=== PATIENT | female | born 1960 | race Caucasian/White ===

== ENCOUNTER → 2019-11-20 13:06 | Outpatient (CLI) | payer OTHER, SELFPAY ==
[2019-11-20 17:07] LABS: Absolute Lymphocyte Count 1.57 X10^3/uL (0.83-4.51); Absolute Neutrophil Count 3.8 X10^3/uL (2.0-7.7); Basophil# 0.05 X10^3/uL; Basophil% 0.8 % (0-1); Eosinophil# 0.09 X10^3/uL; Eosinophils% 1.5 % (0-5); Hematocrit 48.6 % (37-47); Hemoglobin 15.9 g/dL (12.0-15.0); Lymphocyte # 1.57 X10^3/ul (4.0); Lymphocyte % 26.4 % (19-41); Mean Corp Hgb Conc 32.7 g/dL (32-36); Mean Corpuscular Hgb 31.1 pg (27.0-32.0); Mean Corpuscular Volume 94.9 fL (81-99); Mean Platelet Vol. 11.8 fl (6.2-12.0); Monocyte# 0.43 X10^3/uL; Monocyte% 7.2 % (0-10); NRBC Flagged by Analyzer 0 % (0-5); Neutrophil # 3.79 X10^3/uL (2.7-7.7); Neutrophil % 63.9 % (47-70); Platelet Count 245 K/mm3 (150-450); RBC Distribution Width CV 12.1 % (11.6-14.6); RBC Distribution Width SD 42.3 fl (35.1-43.9); Red Blood Count 5.12 M/mm3 (4.2-5.4); White Blood Count 5.9 K/mm3 (4.4-11.0)
== END ==
PROVIDERS: PCP Family Medicine; Referring Provider Family Medicine; Visit Provider Family Medicine
DX: G47.33 Obstructive sleep apnea (adult) (pediatric) (principal); E55.9 Vitamin D deficiency, unspecified
CPT/HCPCS: 36415; 82306; 85025

== ENCOUNTER → 2019-11-27 07:07 | Outpatient (CLI) | payer OTHER, SELFPAY ==
[2019-11-27 10:16] LABS: Ferritin 152 ng/mL (8-252); Iron 95 ug/dL (50-170); Iron Binding Capacity,Total 337 ug/dL (250-450)
[2019-11-28 16:27] LABS: Transferrin 256 mg/dL (192-364)
== END ==
PROVIDERS: PCP Family Medicine; Referring Provider Family Medicine; Visit Provider Family Medicine
DX: D75.1 Secondary polycythemia (principal)
CPT/HCPCS: 36415; 82728; 83540; 83550; 84466

== ENCOUNTER → 2020-02-07 07:14 | Outpatient (CLI) | payer OTHER, SELFPAY ==
[2020-02-07 10:14] LABS: Cholesterol 211 mg/dL (200); High Density Lipoprotein 58 mg/dL; Triglycerides 122 mg/dL; Very Low Density Lipoprotein 24 mg/dL (5-40)
== END ==
PROVIDERS: PCP Family Medicine; Referring Provider Registered Nurse; Visit Provider Registered Nurse
DX: Z00.00 Encounter for general adult medical examination without abnormal findings (principal)
CPT/HCPCS: 36415; 80061

== ENCOUNTER → 2020-03-07 16:22 | Outpatient (CLI) | payer OTHER, SELFPAY ==
--- NOTE | 2020-03-07 16:26 | BI_ITS ---
MAMMOGRAPHY - BILATERAL SCREENING REASON FOR EXAM: Female, 60 years old. Routine annual screening examination. PERTINENT HISTORY: Mother with breast cancer. TECHNIQUE: Digital bilateral breast giorgio (3D mammographic acquisition) in the CC and MLO projections. 2-D mediolateral oblique (MLO) and craniocaudad (CC) views of both breasts were obtained. CAD: Full Field Digital Mammography with Computer Added Detection was performed. COMPARISON: Comparison is made with prior outside examination dated 09/24/2017. FINDINGS: Breast Composition: There are scattered areas of fibroglandular density. There are no dominant masses or suspicious calcifications. Stable small benign appearing bilateral axillary lymph nodes. No other significant abnormalities are identified. There has been no significant change since the prior study. BI/SCREEN MAMM (CAD) W/GIORGIO BILAT IMPRESSION: Stable bilateral screening mammogram. Yearly follow-up mammogram recommended. (A) ASSESSMENT CATEGORY: BIRADS Category 2: Benign. A letter regarding these results will be sent to the patient by the facility within 30 days. Approximately 10% of breast cancers are not detected by mammography. A normal mammogram should not delay biopsy of a clinically suspicious abnormality. [id number] Electronically Signed: Ilan Watters, at 15:28 EST , Service support ,
== END ==
PROVIDERS: PCP Family Medicine; Referring Provider Registered Nurse; Visit Provider Family Medicine
DX: Z12.31 Encounter for screening mammogram for malignant neoplasm of breast (principal)
CPT/HCPCS: 77063; 77067

== ENCOUNTER → 2020-08-21 14:21 | Outpatient (CLI) | payer OTHER, SELFPAY ==
--- NOTE | 2020-08-21 14:25 | RAD_ITS ---
INDICATION: STRAIN EXAMINATION/TECHNIQUE: X-RAY - RIGHT XR Foot Min 3 Views COMPARISON: None. FINDINGS: No acute fracture or malalignment. No blastic or lytic lesions. Mild degenerative changes of the interphalangeal joints and first metatarsophalangeal joint. Plantar and dorsal heel spurs. The soft tissues are unremarkable. RAD/Foot min 3 Views IMPRESSION: No acute radiographic abnormalities. Mild degenerative changes of the interphalangeal joints and first metatarsophalangeal joint. Heel spurs. Electronically Signed: Chauncey Kumar MD at 23:37 EDT Tel , Service support ,
--- NOTE | 2020-08-21 14:45 | RAD_ITS ---
INDICATION: STRAIN EXAMINATION/TECHNIQUE: X-RAY - RIGHT XR Ankle Min 3 Views COMPARISON: None. FINDINGS: No acute fracture or malalignment. No blastic or lytic lesions. No degenerative changes are seen. Plantar and dorsal heel spurs. The soft tissues are unremarkable. RAD/Ankle min 3 Views IMPRESSION: No acute radiographic abnormalities. Heel spurs. Electronically Signed: Chauncey Kumar MD at 23:37 EDT Tel , Service support ,
== END ==
PROVIDERS: PCP Family Medicine; Referring Provider Family Medicine; Visit Provider Family Medicine
DX: S96.911A Strain of unspecified muscle and tendon at ankle and foot level, right foot, initial encounter (principal); X58.XXXA Exposure to other specified factors, initial encounter; Y93.9 Activity, unspecified; Y92.9 Unspecified place or not applicable; Y99.9 Unspecified external cause status
CPT/HCPCS: 73610; 73630

== ENCOUNTER 2020-10-04 14:30 | Outpatient (RCR) | payer OTHER, SELFPAY ==
--- NOTE | 2020-08-22 16:48 | HP.PTEVAL_ITS ---
Patient's Visit Information EDER PATE is a 60 year old F referred to Physical Therapy by Dr. Polly Cabral MD with a diagnosis of B pes planus, B ankle pain.. Date of Evaluation: 08/22/20 Physical Therapist: Medardo Lin, WILLAT, OCS, CSCS - Visit Plan Frequency: 2x /Week Duration: 4-6 Weeks Plan: 2x/week for 4-6 weeks. 1. R ankle US nonthermal to PTT, B ankle mobs and STM medial and PROM. 2. Progress aROM and strength/proprioception ex as tolerated. 3. TEns with ice to R ankle as needed. EG seeking prescription for orthotics from doctor(faxed request), please schedule pt with PT for this as soon as it arrives so she can get orthotics quckly((other therapist as I am on vacation next week.) - Subjective Goes by Michelle. Has chronic pain in ankles and feet adn almost fell Wednesday while tripping on mats. Has horribly weak ankles and feet. Does regular water ex whcih helps the ache in the feet. Feet hurt every day and have for years. Pain is burning in top of ankle ad medially. Feels exhausted in feet with walking, standing. Had acupuncture that helped a long time ago. Sees chiropractor due to hip. 2007 had bad plantarfasciitis and saw ortho. Has boot at home, stetches helped PFitis. No orthotics but had them at one point. No recent treatment for feet. Takes advil and voltarin. Pain is to 7/10 with activity and 0/10 when elevated. Avoids jogging, has fear of falling, tries to walk for fitness and it hurts. avoids steps. Hobbies: rodríguez, hard to get off ground when planting paul. Scared of rolling ankles. Basic ADLs are hard at home. - Pain B feet Pain Intensity (Out of 10): 1 Pain Intensity Range: 0, 7 Comment: comfy in water. - Objective Ambulates back to PT slowly with decreased push off r but I. Transfers I with pain in ankles and fanfare.,. Has maximal pes planus causing compression on outside of ankle and lengthening of PTT inside B. Max tender PTT R>L and into anterior joint structures generally. Ankle aROM R 0 DF but initially -20 and then verbally cued, self limited due to pain. Inv R 15 and L 18 with pain R, eversion 10 R and 12 L with pain on R. PF painful but full B. L DF to 2 degrees. mod tight B gastroc. strength R ankle 3+/5 with pain in alld irections unable to heel raise due to pain. L ankle 4- and much more fluid motion. Everything movement hernandez causes ankle pain R making special tests challenging as she tenses up. - Goals Goal 1:: Full aROM R ankle without c/o pain Goal Time Frame: 4-6 Weeks Goal 2:: Pt feel 75% better in ankle pain to 1/10 at worst Goal Time Frame: 4-6 Weeks Goal 3:: i use of orthoitcs for pain Goal Time Frame: 4-6 Weeks Goal 4:: I approp HEP to minimize pain in future. Goal Time Frame: 4-6 Weeks Goal 5:: Confident [place] to [facility] at end of August. Goal Time Frame: 4-6 Weeks Goal 6:: FGA 25/30 or neurocom to show good baance once ankle pain taken care of. Goal Time Frame: 4-6 Weeks - Rehabilitation Potential Physical Therapy Diagnosis: B ankle pain limiting function Rehabilitation Potential: Fair - Anticipated Interventions Patient/Client Instruction: Educate patient on: Condition For the Purpose of:: To decrease pain, To increase ROM, To improve muscle performance and motor function, To improve ability of physical actions for home/community/work/leisure, To improve gait and locomotor functions Therapeutic Exercise to Include: Strength training, Balance training, Flexibilty training, Gait and locomotor training, Neuromotor development, Passive ROM, Active ROM For the Purpose of:: To decrease pain, To increase ROM, To improve muscle performance and motor function, To increase tolerance to activity/condition/position Manual Therapy Techniques to Include: Massage, Mobilization, Soft tissue mobilization For the Purpose of:: To decrease pain, To increase ROM, To improve nutrient delivery to tissue, To improve muscle performance and motor function, To increase tolerance to activity/condition/position Orthotics: Shoe insert For the Purpose of:: To decrease pain TENS: Yes Cryotherapy (ice pack, ice massage): Yes Ultrasound (thermal/non thermal): Yes For the Purpose of:: To decrease pain, To increase ROM Thank you for the opportunity to evaluate your patient. For Medicare and Medicare HMO plans, please review the plan of care and approve it. It will need to be FAXED BACK to us at [phone] for Medicare purposes. For Medicare only, by signing this I certify the plan of care. Please let me know if there are questions or concerns regarding this plan of care. Physician Signature: ___Date:
--- NOTE | 2020-09-17 16:25 | HP.PTREVAL ---
Dr. Polly Cabral MD, It has been my pleasure to treat EDER PATE over the last 10 visits for B pes planus, B ankle pain.. Please see the progress note below for an update on the physical therapy plan of care! Subjective: Orthoitcs are great. They really help, getting out of van was easier. Walked down steps without problems, needed rail. L side pain 3/10 at medial ankle and R 5/10. Sleep is OK. Going to [place] in two days Objective/Function: Mssed 2 oclcok treatment with Eddie Lucio. 5 degrees DF B and 50 PF without pain, full inv and ev still some pain with inv. 3+ inv strength B with pain, 4- eversion and 4+ DF and PF. Hurts to walk on toes. steps are reciprocal and FGA balance goal is met. Questionable how patient will do on vacation and would recommend finish POC with manual and f/u after vacation to check doctor recommendation Plan Plan: 2 visit with Eddie nguyen and US adn then recheck EG after vacation. Goals Goal 1:: Full aROM R ankle without c/o pain Goal Time Frame: 4-6 Weeks Goal Progress: Goal Met Goal 2:: Pt feel 75% better in ankle pain to 1/10 at worst Goal Time Frame: 4-6 Weeks Goal Progress: pain still higher. Goal 3:: i use of orthoitcs for pain Goal Time Frame: 4-6 Weeks Goal Progress: Goal Met Goal 4:: I approp HEP to minimize pain in future. Goal Time Frame: 4-6 Weeks Goal Progress: Goal Met Goal 5:: Confident for trip out [place] to [facility] at end of August. Goal Time Frame: 4-6 Weeks Goal Progress: Goal Met Goal 6:: FGA 25/30 or neurocom to show good baance once ankle pain taken care of. Goal Time Frame: 4-6 Weeks Goal Progress: Goal Met Anticipated Interventions Patient/Client Instruction: Educate patient on: Condition For the Purpose of:: To decrease pain, To increase ROM, To improve muscle performance and motor function, To improve ability of physical actions for home/community/work/leisure, To improve gait and locomotor functions Therapeutic Exercise to Include: Strength training, Balance training, Flexibilty training, Gait and locomotor training, Neuromotor development, Passive ROM, Active ROM For the Purpose of:: To decrease pain, To increase ROM, To improve muscle performance and motor function, To increase tolerance to activity/condition/position Manual Therapy Techniques to Include: Massage, Mobilization, Soft tissue mobilization For the Purpose of:: To decrease pain, To increase ROM, To improve nutrient delivery to tissue, To improve muscle performance and motor function, To increase tolerance to activity/condition/position Orthotics: Shoe insert For the Purpose of:: To decrease pain TENS: Yes Cryotherapy (ice pack, ice massage): Yes Ultrasound (thermal/non thermal): Yes For the Purpose of:: To decrease pain, To increase ROM Please do not hesitate to contact me at [phone] by phone or if you have questions or concerns regarding this new plan of care! Sincerely, Medardo Lin, DPT, OCS, CSCS
--- NOTE | 2020-10-04 15:16 | HP.PTDCSUM ---
It has been my pleasure to treat EDER PATE referred by Dr. Polly Cabral MD, with the diagnosis of B pes planus, B ankle pain. for a total of 12 visit(s). Discharge Date: 10/04/20 Please see the following information for a summary of their discharge status. Subjective: Much better. I can walk all over [facility] without hurting too bad. Went up steps at home using bannister appropriately and up straight. Pain still to 3/10 with walking alot. Currently 3/10. Orthoittcs are very helpful. Saw doctor Wednesday and no other interventions needed right now. Ex at home 2x/day. Also in pool regularly. B feet Pain Intensity (Out of 10): 0 % Improvement: 94 Objective/Function: 8 degrees of DF B, 58 PF B without pain or wincing. 4+/5 strength in ankle motions without pain. Walking well and without antalgia today. Pt doing very wella nd ready for d/c Goal 1:: Full aROM R ankle without c/o pain Goal Progress: Goal Met Goal 2:: Pt feel 75% better in ankle pain to 1/10 at worst Goal Progress: % met , pain improving Goal 3:: i use of orthoitcs for pain Goal Progress: Goal Met Goal 4:: I approp HEP to minimize pain in future. Goal Progress: Goal Met Goal 5:: Confident for trip out [place] to [facility] at end of August. Goal Progress: Goal Met Goal 6:: FGA 25/30 or neurocom to show good baance once ankle pain taken care of. Goal Progress: Goal Met Plan: d/c If there are questions or concerns regarding this patient's physical therapy, please feel free to call me at [phone]. Thank you for the referral of this patient. Sincerely, Medardo Lni, DPT, OCS, CSCS Balance/Gait/Functional tests - Balance/Special Test Scores Functional Gait Assessment Score: 26 % Disability: 13.3400 Lower Extremity Functional Score: 69
== END 2020-10-04 19:00 | disposition home or self-care (01) ==
LOC: PT 14:30
PROVIDERS: PCP Family Medicine; Referring Provider Family Medicine; Visit Provider Family Medicine
DX: S96.919D Strain of unspecified muscle and tendon at ankle and foot level, unspecified foot, subsequent encounter (principal); X58.XXXD Exposure to other specified factors, subsequent encounter; G89.29 Other chronic pain; M21.42 Flat foot [pes planus] (acquired), left foot; M21.41 Flat foot [pes planus] (acquired), right foot
CPT/HCPCS: 97035; 97110; 97140; 97162; 97164; 97530; 97760; 97763

== ENCOUNTER → 2020-12-13 15:29 | Outpatient (CLI) | payer OTHER, SELFPAY ==
--- NOTE | 2020-12-13 15:35 | RAD_ITS ---
STUDY: X-RAY - LUMBAR SPINE REASON FOR EXAM: Female, 60 years old. SCIATICA TECHNIQUE: 4 view(s) of the lumbar spine were obtained. COMPARISON: None FINDINGS: There is straightening of the normal lumbar lordosis. There is no substantial scoliosis. There is a normal alignment of the vertebrae. Normal vertebral bodies and endplates. There is multi-level degenerative disc disease with multi-level disc space narrowing. The soft tissue structures are unremarkable. RAD/L/S Spine Min 4 Views IMPRESSION: Degenerative changes of the spine, as detailed above. Electronically Signed: Ilan Watters MD at 13:39 EDT , Service support ,
== END ==
PROVIDERS: PCP Family Medicine; Referring Provider Family Medicine; Visit Provider Family Medicine
DX: M54.32 Sciatica, left side (principal)
CPT/HCPCS: 72110

== ENCOUNTER 2021-02-06 16:00 | Outpatient (RCR) | payer OTHER, SELFPAY ==
--- NOTE | 2020-12-23 17:21 | HP.PTEVAL ---
Patient's Visit Information EDER PATE is a 60 year old F referred to Physical Therapy by Dr. Jaret Estrella MD with a diagnosis of Back Pain- Sciatica. Date of Evaluation: 12/23/20 Physical Therapist: Ailyn Herrera DPT - Visit Plan Frequency: 2x /Week Duration: 4 Weeks Plan: Ultrasound as modality of choice- Focus on posture and core strength/stabilization- Neutral spine to start. - Subjective Patient reports Wednesday the - she was doing chores- pulled clothes out of the dryer- horrible almost threw up. Wednesday went to chiro adjustment which helped a little bit- also taking advil- told her heating pad and water. Wednesday she went back in the AM- very similar but manipulated her- in the PM she went to the MD- muscle relaxer and x-rays. 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 Was able to wear her allegras instead of her sneakers. When she gets tired it gets worse. X-ray and showed DDD and they sent her to PT. Pain is located along the belt line on the left side- and radiates to the ankle- comes and goes. N/T in the leg- pain in the back is dull and achy. Worst in the last week: 7/10 Agg: sitting, standing for to long, bending forward, reaching into the car, going down the stairs. Best: 5/10 Eases: heating pad, medication. Sleep: side sleeper with a CPAP and a back sleeper with her left arm over her head- stiff when she gets up- but does not wake her since she started using Tylenol. 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 Working currently. No MRI just x-rays. Is not currently going to the chiropractor (Dr. Cedeno) but wants to have acupuncture. Swims and goes to water aerobics- but has not been going because its to cold. PMHx: none Meds: none - Objective Posture: FH, RS, increased kyphosis-can correct but does not maintain and reports pain. Gait: decreased spinal rotation. HR/TR: able without pain. SLS: weight shift but unable to SLS without loss of balance and reports pain when lifting her left leg. ROM: WFL bur reports pain with all directions. Hip/Knee/Ankle: WFL. Strength: Core: fair minus, Hip: 4-/5, Knee: 4+/5, Ankle: 5/5. Sensation: WFL. Reflex: diminished bilateral patella. Flex: HS: severe, Gastroc: moderate. Special Test: slump: positive left, Dural signs: positive left, Repeated extension/flexion: increased pain each direction - Balance/Special Test Scores Lower Extremity Functional Score: 25 - Goals Goal 1:: Patient will be I with HEP and progression Goal Time Frame: 4-6 Weeks Goal 2:: Patient will maintain proper posture t/o tx session to demo increased core s/s. Goal Time Frame: 4-6 Weeks Goal 3:: Patient will report no radiating s/s down her left leg for 1 week Goal Time Frame: 4-6 Weeks - Rehabilitation Potential Physical Therapy Diagnosis: Patient presents with hypomobility- she decreased ROM, LE and core strength/stabilization, flex and muscular endurance leading to poor posture and increased pain with ADL's. Rehabilitation Potential: Fair - Anticipated Interventions Patient/Client Instruction: Educate patient on: Benefits of Fitness Program Therapeutic Exercise to Include: Strength training, Power training, Coordination, Agility training, Body mechanics, Postural training, Flexibilty training, Neuromotor development, Dynamic Lumbar Stabilization, Scapular Strength/Stabilization For the Purpose of:: To improve muscle performance and motor function TENS: Yes Cryotherapy (ice pack, ice massage): Yes Thermo therapy (hot pack): Yes Ultrasound (thermal/non thermal): Yes For the Purpose of:: To decrease swelling/inflammation Thank you for the opportunity to evaluate your patient. For Medicare and Medicare HMO plans, please review the plan of care and approve it. It will need to be FAXED BACK to us at [phone] for Medicare purposes. For Medicare only, by signing this I certify the plan of care. Please let me know if there are questions or concerns regarding this plan of care. Physician Signature: Date:
--- NOTE | 2021-02-06 16:28 | HP.PTDCSUM ---
It has been my pleasure to treat EDER PATE referred by Dr. Jaret Estrella MD, with the diagnosis of Back Pain- Sciatica for a total of 14 visit(s). Discharge Date: Please see the following information for a summary of their discharge status. Subjective: Patient reports that she is a lot better. She knows when she over does it- deyvi over Thanksgiving. She has been able to work it through. She has a good home exercise program. 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 She is wearing orthotics and is back in her normal shoes. % Improvement: 90 Objective/Function: Posture: FH, RS, increased kyphosis-can correct and maintain for 5 min then returns to slumped posture in sitting Gait: no deviation noted. HR/TR: able without pain. SLS: 15 seconds ROM: WFL without pain. Hip/Knee/Ankle: WFL. Strength: Core: fair minus, Hip: 4+/5, Knee:5/5, Ankle: 5/5. Sensation: WFL. Reflex: diminished bilateral patella. Flex: HS: moderate, Gastroc: moderate. Goal 1:: Patient will be I with HEP and progression Goal Progress: Goal Met Goal 2:: Patient will maintain proper posture t/o tx session to demo increased core s/s. Goal Progress: Goal Met Goal 3:: Patient will report no radiating s/s down her left leg for 1 week Goal Progress: Goal Met Plan: Discharge to I home exercise program. If there are questions or concerns regarding this patient's physical therapy, please feel free to call me at [phone]. Thank you for the referral of this patient. Sincerely, Ailyn Herrera, WILLAT Balance/Gait/Functional tests - Balance/Special Test Scores Oswestry Low Back Score: 6 Lower Extremity Functional Score: 25
== END 2021-02-06 19:00 | disposition home or self-care (01) ==
LOC: PT 16:00
PROVIDERS: PCP Family Medicine; Referring Provider Family Medicine; Visit Provider Family Medicine
DX: M54.32 Sciatica, left side (principal)
CPT/HCPCS: 97035; 97110; 97162; 97164

== ENCOUNTER 2021-03-20 16:16 | Outpatient (CLI) | payer OTHER, SELFPAY ==
--- NOTE | 2021-03-20 16:19 | BI_ITS ---
MAMMOGRAPHY - BILATERAL SCREENING REASON FOR EXAM: Female, 61 years old. Routine annual screening examination. PERTINENT HISTORY: Mother with breast cancer. TECHNIQUE: Digital bilateral breast giorgio (3D mammographic acquisition) in the CC and MLO projections. 2-D mediolateral oblique (MLO) and craniocaudad (CC) views of both breasts were obtained. CAD: Full Field Digital Mammography with Computer Added Detection was performed. COMPARISON: Comparison is made with prior study dated 03/07/2020. FINDINGS: Breast Composition: There are scattered areas of fibroglandular density. There are no dominant masses or suspicious calcifications. Stable small benign-appearing bilateral axillary length. No other significant abnormalities are identified. There has been no significant change since the prior study. BI/SCRN MAMM (CAD)W/GIORGIO BILAT IMPRESSION: Stable bilateral screening mammogram. Yearly follow-up mammogram recommended. (A) ASSESSMENT CATEGORY: BIRADS Category 2: Benign. A letter regarding these results will be sent to the patient by the facility within 30 days. Approximately 10% of breast cancers are not detected by mammography. A normal mammogram should not delay biopsy of a clinically suspicious abnormality. [id number] Electronically Signed: Ilan Watters MD at 8:26 EST , Service support ,
== END 2021-03-20 23:59 | disposition short-term general hospital (02) ==
LOC: OPBI 16:17
PROVIDERS: PCP Family Medicine; Referring Provider Family Medicine; Visit Provider Family Medicine
DX: Z12.31 Encounter for screening mammogram for malignant neoplasm of breast (principal)
CPT/HCPCS: 77063; 77067

== ENCOUNTER 2021-04-23 09:06 | Outpatient (CLI) | payer OTHER, SELFPAY ==
--- NOTE | 2021-04-23 09:09 | RAD_ITS ---
STUDY: X-RAY - LEFT KNEE REASON FOR EXAM: Female, 61 years old. Knee pain. TECHNIQUE: 3 view(s) of the knee. COMPARISON: None. FINDINGS: Osteopenia. Superior patellar spur. Moderate medial compartmental arthrosis with osteophyte formation. Mild arthrosis of the lateral compartment. Mild arthrosis of the patellofemoral compartment. Joint effusion with multiple radiopaque densities in the suprapatellar pouch which may represent intra-articular osteochondral bodies. RAD/Knee 3 Views IMPRESSION: Osteopenia with tricompartmental arthrosis as described. Multiple intra-articular osteochondral bodies. No acute abnormality. Electronically Signed: Mat Cardozo MD at 12:01 EST ,
== END 2021-04-23 23:59 | disposition home or self-care (01) ==
LOC: MTRAD 09:08
PROVIDERS: PCP Family Medicine; Referring Provider Family Medicine; Visit Provider Family Medicine
DX: M25.562 Pain in left knee (principal)
CPT/HCPCS: 73562

== ENCOUNTER 2021-04-24 07:18 | Outpatient (CLI) | payer OTHER, SELFPAY ==
[2021-04-24 10:19] LABS: Hematocrit 45.5 % (37-47); Hemoglobin 15.6 g/dL (12.0-15.0); Mean Corp Hgb Conc 34.3 g/dL (32-36); Mean Corpuscular Hgb 31.6 pg (27.0-32.0); Mean Corpuscular Volume 92.1 fL (81-99); Mean Platelet Vol. 11.6 fl (6.2-12.0); Platelet Count 204 K/mm3 (150-450); RBC Distribution Width CV 12.4 % (11.6-14.6); RBC Distribution Width SD 41.8 fl (35.1-43.9); Red Blood Count 4.94 M/mm3 (4.2-5.4); White Blood Count 5.1 K/mm3 (4.4-11.0)
[2021-04-24 10:33] LABS: Anion Gap 3 (5-15); BUN 13 mg/dL (7-18); Calcium,Total 8.9 mg/dL (8.5-10.1); Chloride 109 mmol/L (98-107); Creatinine, Serum 0.68 mg/dL (0.55-1.02); EST Glomerular Filtration Rate 93 mL/min (>60); Est Glom Filt Rate - Afr Amer 112 mL/min (>60); Glucose 127 mg/dL (74-106); Sodium Level 140 mmol/L (136-145)
[2021-04-24 10:38] LABS: Erythrocyte Sedimentation Rate 17 mm/hr (0-30)
[2021-04-24 11:29] LABS: Vitamin D,25 Hydroxy 34.1 ng/mL
[2021-04-25 11:37] LABS: ANTINUCLEAR ANTIBODIES DIRECT Negative (Negative)
== END 2021-04-24 23:59 | disposition home or self-care (01) ==
LOC: MTLAB 07:19
PROVIDERS: PCP Family Medicine; Referring Provider Family Medicine; Visit Provider Family Medicine
DX: Z00.00 Encounter for general adult medical examination without abnormal findings (principal); M19.90 Unspecified osteoarthritis, unspecified site
CPT/HCPCS: 36415; 80048; 82306; 84443; 85027; 85652; 86038

== ENCOUNTER 2021-05-15 06:13 | Outpatient (CLI) | payer OTHER, SELFPAY ==
--- NOTE | 2021-05-15 15:33 | STRESSREP ---
Stress Test Report Date: 05/15/2021 Procedure: Exercise tolerance test/imaging study Indications: Abnormal EKG Consent: Per the patient Procedure: The patient exercised on a Carlos protocol for 5 minutes and 1 second achieving a peak heart rate of 162 bpm (101% predicted maximal heart rate) with a peak blood pressure 158/72 mmHg and a peak MET capacity of 7.2 METs. The baseline ECG demonstrated normal sinus rhythm. The peak exercise ECG demonstrated no significant ischemic changes. EKG during recovery revealed no significant ischemic changes [There were no cardiac dysrhythmias pretest, during exercise, or recovery]. The functional capacity was considered normal for age. Patient had some chest discomfort at peak exercise. The examination was discontinued secondary to dyspnea. Impression: 1. Technically adequate (percent predicted maximal heart rate greater than 85%) exercise tolerance test 2. Stress test is negative for exercise-induced EKG changes of ischemia 3. The test test is positive for exercise-induced chest pain 4. Functional capacity is normal for age 5. Nuclear images pending Myocardial perfusion imaging study: Technique: The patient was injected with 11.7 mCi of technetium 99m Cardiolite and subsequently rest SPECT Cardiolite nuclear imaging was obtained in the horizontal long, vertical long, and short axis views. The patient exercised on a Carlos protocol. Please see above for details. The patient was injected with 33.8 mCi of technetium 99m Cardiolite and subsequently stress SPECT Cardiolite nuclear imaging was obtained in the horizontal long, vertical long, and short axis views. A gated Cardiolite study at peak stress was obtained. Interpretation: Rest and stress SPECT Cardiolite nuclear imaging status post realignment, normalization, and attenuation correction, demonstrates overall normal myocardial radioisotope uptake. The gated Cardiolite study demonstrates no significant regional wall motion abnormalities. The reported LVEF is greater than 70%. Impression: 1. There is no evidence of significant ischemia or infarction. 2. The gated Cardiolite study reports an LVEF of greater than 70%. This note was generated with Sonicbidsation software. It may contain incorrect words, spelling, and punctuation that were not noted in checking the note before signing.
== END 2021-05-15 23:59 | disposition home or self-care (01) ==
LOC: CVS 06:14
PROVIDERS: PCP Family Medicine; Referring Provider Family Medicine; Visit Provider Family Medicine
DX: R94.31 Abnormal electrocardiogram [ECG] [EKG] (principal)
CPT/HCPCS: 78452; 93017; A9500; A4216

== ENCOUNTER 2021-09-10 07:26 | Day surgery (SDC) | payer OTHER, SELFPAY ==
--- NOTE | 2021-09-10 07:54 | HP.PCM_ITS ---
HPI - General HPI Narrative EDER PATE, is a 61 F who presents for screening colonoscopy due to history of polyps. Patient last colonoscopy was in [place] in 2017 she did have a polyp at that time told return 5 years?do not have the report. Patient's mother was diagnosed colon cancer in her 80s. Patient states she has bowel movements daily denies any blood. Patient denies any chronic abdominal pain/nausea/vomiting and only has very occasional reflux. PFS Medical History (Updated 09/10/21 @ 08:[address] Brianne Rojo MD) Arthritis Back pain Bladder disease CPAP (continuous positive airway pressure) dependence Diabetes Easy bruising Gastric reflux Hidradenitis History of echocardiogram History of edema History of pain when walking History of stress test Non-smoker Post-menopausal Shortness of breath on exertion Wears contact lenses Wears hearing aid Home Medications Vit B Comp W/C 1 tab PO/SL PRN PRN ILLNESS 05/15/21 [History Last Taken Unknown] acetaminophen 650 mg tablet,extended release 650 mg PO Q8H PRN Pain 05/15/21 [History Last Taken Unknown] meloxicam 15 mg tablet 15 mg PO DAILY 05/15/21 [History Last Taken Unknown] oxybutynin chloride 5 mg tablet,extended release 24 hr 5 mg PO DAILY 05/15/21 [History Last Taken Unknown] Plexus 1 packet PO/SL DAILY 09/08/21 [History Last Taken Unknown] Plexus Active 1 packet PO/SL DAILY 09/08/21 [History Last Taken Unknown] cholecalciferol (vitamin D3) 50 mcg (2,000 unit) capsule (Vitamin D3) 50 mcg PO MOWEFR 09/08/21 [History Last Taken Unknown] Allergy/AdvReac Type Severity Reaction Status Date / Time No Known Allergies Allergy Verified 09/10/21 08:13 Family History (Updated 08/01/21 @ 14:17 by Wednesday) Mother Colon cancer Breast cancer Heart disease Father Diabetes Heart disease Hypertension Sister Thyroid disorder Surgical History (Updated 09/08/21 @ 08:55 by Gabrielle Nguyen) History of cardiac catheterization History of cholecystectomy History of D&C History of tonsillectomy Hx of colonoscopy Social History (Updated 08/01/21 @ 14:18 by Wednesday) Smoking Status: Never smoker alcohol intake: current details: rarely substance use type: does not use Past Medical/Surgical History Planned Operation Planned Operative Procedure/s: CSCOPE Previous Hospitalizations/Surgeries HX Hospitalizations: No Any Problems With Anesthesia: Yes (N,V) You/Your Family Experience Fever (Hyperthermia) With Anes: No Cholinesterase deficiency: No Cardiovascular Hx of Irregular Heartbeat and/or Afib: No Hx Heart Attack: No Hx Congestive Heart Failure: No Hx Hypertension: No Hx Pacemaker: No Respiratory Hx Chronic Obstructive Pulmonary Disease (COPD): No Hx Asthma: No Hx Emphysema: No Hx Sleep Apnea: Yes CPAP: Yes BIPAP: No Hx Respiratory Tract Infection/Cold (presently): No Result (for STOP score): Positive Smoking Status: Never smoker Gastrointestinal Hx Gastroesophageal Reflux: No Hx Ulcer: No Neurological Hx Seizures: No Hx Headaches: No Does patient have nerve stimulator: No Reproduction : No Allergies No Known Allergies Allergy (Verified 09/10/21 08:13) Discharge Is Pt Admitted From a Skilled Nursing, or a Prison: No After D/C, Where Do you Plan to Go: Return Home Physical Exam Const alert, oriented x3 and no apparent distress HEENT normocephalic and head/scalp atraumatic Resp normal respiratory effort Cardio regular rate GI soft to palpation and non-tender; Negative for non-distended Palpation: Negative for guarding Extremity no clubbing, cyanosis or edema Neuro CN's II-XII intact bilaterally Psych mental status grossly normal Assessment & Plan Assessment/Plan (1) Hx of colonic polyp: Procedure Criteria Type of Procedure Procedure Type: Elective Elective Risks - COVID COVID Risk Discussion: The surgeon/proceduralist and patient have discussed in detail the risk of exposure to and/or potential harm posed by the COVID-19 virus with having a surgery/procedure at this time versus the risk of delaying the mulligan rgery/procedure. It is not possible to know either the risk of delaying the surgery or procedure or chance of getting an infection with perfect accuracy, but a joint decision was made between the patient and the surgeon/proceduralist to proceed at this time with the scheduled surgery/procedure as indicated on the consent form. Surgery Risks - Colonoscopy Risks Include but are not Limited To: Risks include but are not limited to: Bleeding, perforation requiring further surgery, inability to complete colonoscopy requiring barium enema.
[2021-09-10 07:57] VITALS: BP 121/72; PULSE 87; RESP 16; TEMP 36.7; O2SAT 96; BMI 32.1
[2021-09-10] MEDS: Lactated Ringers 1,000 ML 15 ML IV (08:01)
--- NOTE | 2021-09-10 09:13 | OP.COLON_ITS ---
Patient Name: Romina Gimenez Procedure Date: 09/10/2021 8:38 AM Date of : 1960 Age: 61 Procedure: Colonoscopy Indications: High risk colon cancer surveillance: Personal history of colonic polyps Providers: Brianne Rojo MD Medicines: Monitored Anesthesia Care Patient Profile: This is a 61 year old female. Last Colonoscopy: 5 years ago. Complications: No immediate complications. Procedure: Pre-Anesthesia Assessment: - Prior to the procedure, a History and Physical was performed, and patient medications and allergies were reviewed. The patient's tolerance of previous anesthesia was also reviewed. The risks and benefits of the procedure and the sedation options and risks were discussed with the patient. All questions were answered, and informed consent was obtained. Prior Anticoagulants: The patient has taken no previous anticoagulant or antiplatelet agents. ASA Grade Assessment: Per anesthesia. After reviewing the risks and benefits, the patient was deemed in satisfactory condition to undergo the procedure. After I obtained informed consent, the scope was passed under direct vision. Throughout the procedure, the patient's blood pressure, pulse, and oxygen saturations were monitored continuously. The colonoscope was introduced through the anus and advanced to the cecum, identified by the appendiceal orifice, ileocecal valve and palpation. The colonoscopy was performed without difficulty. The patient tolerated the procedure well. The quality of the bowel preparation was good. Scope In: 8:45:36 AM Scope Withdrawal Time 0 hours 14 minutes 27 seconds Scope Out: 9:06:02 AM Total Procedure Duration Time 0 hours 20 minutes 26 seconds Findings: Hemorrhoids were found on perianal exam. Non-bleeding external and internal hemorrhoids were found. The hemorrhoids were small and Grade I (internal hemorrhoids that do not prolapse). Many small and medium diverticula were found in the entire colon. The exam was otherwise without abnormality. Impression: - Hemorrhoids found on perianal exam. - Non-bleeding external and internal hemorrhoids. - Diverticulosis in the entire examined colon. - The examination was otherwise normal. - No specimens collected. Recommendation: - Discharge patient to home. - High fiber diet. - Continue present medications. - Repeat colonoscopy in 10 years for screening purposes. Procedure Code(s): --- Professional --- G0105, PT, Colorectal cancer screening; colonoscopy on individual at high risk Diagnosis Code(s): --- Professional --- Z86.010, Personal history of colonic polyps K64.0, First degree hemorrhoids K57.30, Diverticulosis of large intestine without perforation or abscess without bleeding CPT copyright 2017 [employer]. All rights reserved. The codes documented in this report are preliminary and upon hcc coders review may be revised to meet current compliance requirements. MD Brianne Gtz MD 09/10/2021 9:12:55 AM This report has been signed electronically. Number of Addenda: 0 Note Initiated On: 09/10/2021 8:38 AM
[2021-09-10 09:14] VITALS: BP 108/72; BP 121/72; PULSE 72; RESP 16; TEMP 36; O2SAT 93
--- NOTE | 2021-09-10 09:14 | OP.CCLET_ITS ---
09/10/2021 Jaret Estrella MD [address] [id number] Re : Colonoscopy procedure for Romina Gimenez Dear Dr. Estrella This procedure was performed on Friday, September 10, 2021. My impressions and recommendations are as follows: Impressions : - Hemorrhoids found on perianal exam. - Non-bleeding external and internal hemorrhoids. - Diverticulosis in the entire examined colon. - The examination was otherwise normal. - No specimens collected. Recommendations : - Discharge patient to home. - High fiber diet. - Continue present medications. - Repeat colonoscopy in 10 years for screening purposes. My findings are described in the full procedure note, which is enclosed. If I can be of further assistance, please feel free to contact me at Doctor phone number(s): , Work: . Sincerely, MD Brianne Gtz MD 09/10/2021 9:12:55 AM This report has been signed electronically.
[2021-09-10 09:20] VITALS: BP 109/68; BP 121/72; PULSE 70; RESP 18; O2SAT 92
[2021-09-10 09:25] VITALS: BP 109/68; BP 121/72; PULSE 66; RESP 18; O2SAT 93
[2021-09-10 09:30] VITALS: BP 110/67; BP 121/72; PULSE 70; RESP 18; TEMP 36.3; O2SAT 94
[2021-09-10 09:50] VITALS: BP 121/72
== END 2021-09-10 09:51 | disposition home or self-care (01) ==
LOC: EN 07:26 → AC 07:27
PROVIDERS: PCP Family Medicine; Referring Provider Family Medicine; Visit Provider Surgery
PROC: 0DJD8ZZ Inspection of Lower Intestinal Tract, Via Natural or Artificial Opening Endoscopic (ICD-10-PCS; CPT 45378; principal; 2021-09-10 08:40)
DX: Z12.11 Encounter for screening for malignant neoplasm of colon (principal); E11.9 Type 2 diabetes mellitus without complications; K57.30 Diverticulosis of large intestine without perforation or abscess without bleeding; K64.0 First degree hemorrhoids; K21.9 Gastro-esophageal reflux disease without esophagitis; Z78.0 Asymptomatic menopausal state; Z86.010 Personal history of colon polyps; Z80.0 Family history of malignant neoplasm of digestive organs
CPT/HCPCS: 45378; J7120; J2405

== ENCOUNTER → 2021-09-11 | Outpatient (CLI) | payer OTHER, SELFPAY ==
--- NOTE | 2021-09-11 10:15 | RAD_ITS ---
STUDY: X-RAY - LEFT KNEE REASON FOR EXAM: Female, 61 years old. KNEE PAIN TECHNIQUE: 4 view(s) of the knee. COMPARISON: 04/23/2021 FINDINGS: Normal visualized distal femur. Normal visualized proximal tibia and fibula. Normal proximal tibiofibular articulation. There is moderate degenerative arthrosis of the medial femorotibial compartment with moderate joint space narrowing. There is mild degenerative arthrosis of the lateral femorotibial compartment. There is mild degenerative arthrosis of the patellofemoral articulation. There is a soft tissue prominence in the suprapatellar region suggesting a small volume joint effusion. The soft tissue structures are unremarkable. RAD/Knee 4 or More Views IMPRESSION: Degenerative arthrosis. Electronically Signed: Luis Flores MD at 17:44 EDT ,
== END | disposition home or self-care (01) ==
LOC: MTRAD 10:13
PROVIDERS: PCP Family Medicine; Referring Provider Family Medicine; Visit Provider Family Medicine
DX: M17.12 Unilateral primary osteoarthritis, left knee (principal)
CPT/HCPCS: 73564

== ENCOUNTER 2021-09-23 08:00 | Outpatient (RCR) | payer OTHER, SELFPAY ==
--- NOTE | 2021-09-17 08:11 | HP.PTEVAL ---
Patient's Visit Information EDER PATE is a 61 year old F referred to Physical Therapy by Dr. Jaret Estrella MD with a diagnosis of L knee pain. Date of Evaluation: 09/17/21 Physical Therapist: Porfirio Walters, PT, ATC - Visit Plan Frequency: 2-3x /Week Duration: 4-6 Weeks Plan: L knee stretching and strengthening, balance and proprio, core stab ex's, nustep, and HEP - Subjective Pt reports her L knee has been very sore for approximately 2 weeks. Pt reports she was stretching in the pool when she felt her L knee pop. Pt reports she has been icing and resting since which hasnt really helped. Pt reports she has since recieved a cortisone injection that made to impact. Pt reports her knee catches on her. Pt also reports her knee gives out on her as well. 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 Pt reports she has difficulty with rolling over in bed, and notes she has difficulty with sleep at this time secondary to pain. Pt denies tingling and numbness in L LE. Pt reports she starts school on September. Pt reports she has to travel from building to building for her work and believes she is going to have a lot of difficulty with that task. Pt reports she had x rays last wednesday which revealed moderate arthritis at this time. 9/10 pain at rest, 10/10 pain at worst. - Pain L knee Pain Intensity (Out of 10): 9 Pain Intensity Range: 10 - Objective Neuro: B LE sensation is WNL to light touch. Reflexes not tested secondary to pain. Palpation: Pt pas significant pain on the popliteal region of L knee and along medial joint line. Sig crepitus with AROM. Girth at joint line: L knee 39 cm, R knee 37 cm. ROM: L knee 0-5-125; L knee 0-45-100 degrees. MMT: R knee flex= 28, ext= 20 #F; L knee flex= 22, ext 8 #F. Special tests: pos Mcmurrays and apley compression tests - Balance/Special Test Scores Lower Extremity Functional Score: 11 - Goals Goal 1:: Decrease L knee pain x 50% to aid with sleep Goal Time Frame: 4-6 Weeks Goal 2:: Increase L knee strength x 5-10 #F to aid with stair negotiation Goal Time Frame: 4-6 Weeks Goal 3:: Increase L knee ROM x 45 degrees to aid with restoring a normalized gait pattern Goal Time Frame: 4-6 Weeks Goal 4:: I with HEP Goal Time Frame: 4-6 Weeks - Rehabilitation Potential Physical Therapy Diagnosis: Pt has L knee pain, weakness, and limited ROM secondary to deg changes in the L knee Rehabilitation Potential: Fair - Anticipated Interventions Patient/Client Instruction: Educate patient on: Condition, Plan of Care For the Purpose of:: To improve self management Therapeutic Exercise to Include: Strength training, Endurance training, Balance training, Flexibilty training, Gait and locomotor training, Passive ROM, Active ROM, Dynamic Lumbar Stabilization For the Purpose of:: To decrease pain, To increase ROM, To improve muscle performance and motor function Cryotherapy (ice pack, ice massage): Yes For the Purpose of:: To decrease pain Thank you for the opportunity to evaluate your patient. For Medicare and Medicare HMO plans, please review the plan of care and approve it. It will need to be FAXED BACK to us at [phone] for Medicare purposes. For Medicare only, by signing this I certify the plan of care. Please let me know if there are questions or concerns regarding this plan of care. Physician Signature: Date:
== END 2021-09-23 19:00 | disposition home or self-care (01) ==
LOC: PT 08:00
PROVIDERS: PCP Family Medicine; Referring Provider Family Medicine; Visit Provider Family Medicine
DX: M25.562 Pain in left knee (principal)
CPT/HCPCS: 97110; 97161

== ENCOUNTER → 2021-12-05 | Outpatient (CLI) | payer OTHER, SELFPAY ==
[2021-12-05 17:45] LABS: Absolute Lymphocyte Count 1.73 X10^3/uL (0.83-4.51); Absolute Neutrophil Count 3.2 X10^3/uL (2.0-7.7); Basophil# 0.05 X10^3/uL; Basophil% 0.9 % (0-1); Eosinophil# 0.09 X10^3/uL; Eosinophils% 1.6 % (0-5); Hematocrit 45.6 % (37-47); Hemoglobin 15.4 g/dL (12.0-15.0); Lymphocyte # 1.73 X10^3/ul (0.83-4.51); Lymphocyte % 30.9 % (19-41); Mean Corp Hgb Conc 33.8 g/dL (32-36); Mean Corpuscular Hgb 31.7 pg (27.0-32.0); Mean Corpuscular Volume 93.8 fL (81-99); Monocyte# 0.49 X10^3/uL; Monocyte% 8.8 % (0-10); NRBC Flagged by Analyzer 0 % (0-5); Neutrophil # 3.23 X10^3/uL (2.7-7.7); Neutrophil % 57.6 % (47-70); Platelet Count 238 K/mm3 (150-450); RBC Distribution Width CV 12.6 % (11.6-14.6); RBC Distribution Width SD 43.8 fl (35.1-43.9); Red Blood Count 4.86 M/mm3 (4.2-5.4); White Blood Count 5.6 K/mm3 (4.4-11.0)
[2021-12-05 18:06] LABS: Anion Gap 8 (5-15); BUN 20 mg/dL (7-18); BUN/Creat Ratio 25.4 RATIO (10-20); Calcium,Total 9.8 mg/dL (8.5-10.1); Chloride 109 mmol/L (98-107); Creatinine, Serum 0.79 mg/dL (0.55-1.02); EST Glomerular Filtration Rate 79 mL/min (>60); Est Glom Filt Rate - Afr Amer 96 mL/min (>60); Glucose 109 mg/dL (74-106); Potassium 3.8 mmol/L (3.5-5.1); Sodium Level 143 mmol/L (136-145)
== END | disposition home or self-care (01) ==
LOC: MFPLAB 15:43
PROVIDERS: PCP Family Medicine; Referring Provider Family Medicine; Visit Provider Family Medicine
DX: M25.562 Pain in left knee (principal)
CPT/HCPCS: 36415; 80048; 85025

== ENCOUNTER → 2022-05-12 | Outpatient (CLI) | payer OTHER, SELFPAY ==
--- NOTE | 2022-05-12 08:34 | BI_ITS ---
MAMMOGRAPHY - BILATERAL SCREENING 3-D TOMOSYNTHESIS REASON FOR EXAM: Female, 62 years old. Routine screening PERTINENT HISTORY: Mother with breast cancer.. TECHNIQUE: 2-D mammograms and 3-D Tomosynthesis of the breast (s) were performed. CAD was performed. COMPARISON: 03/20/2021 FINDINGS: The breast composition is composed of scattered fibroglandular density. Scattered benign calcifications are seen. No dense spiculated masses or suspicious microcalcifications are identified. No architectural distortion is identified. There is no skin thickening or retraction. There has been no significant change since the prior study. BI/SCRN MAMM (CAD)W/GIORGIO BILAT IMPRESSION: No mammographic signs of malignancy. Routine yearly mammograms recommended. ASSESSMENT CATEGORY: BIRADS Category 1: Negative. A letter regarding these results will be sent to the patient by the facility within 30 days. FOLLOW UP RECOMMENDATION: Yearly follow up mammogram recommended. (A) Approximately 10% of breast cancers are not detected by mammography. A normal mammogram should not delay biopsy of a clinically suspicious abnormality. Electronically Signed: Sarthak Miles MD at 9:25 EDT ,
== END | disposition home or self-care (01) ==
LOC: OPBI 08:32
PROVIDERS: PCP Family Medicine; Visit Provider Family Medicine
DX: Z12.31 Encounter for screening mammogram for malignant neoplasm of breast (principal)
CPT/HCPCS: 77063; 77067

== ENCOUNTER → 2022-08-05 | Outpatient (CLI) | payer OTHER, SELFPAY ==
[2022-08-05 10:16] LABS: Absolute Lymphocyte Count 1.29 X10^3/uL (0.83-4.51); Absolute Neutrophil Count 2.4 X10^3/uL (2.0-7.7); Basophil# 0.06 X10^3/uL; Basophil% 1.4 % (0-1); Eosinophil# 0.13 X10^3/uL; Hematocrit 46.1 % (37-47); Hemoglobin 15.2 g/dL (12.0-15.0); Lymphocyte # 1.29 X10^3/ul (0.83-4.51); Lymphocyte % 29.9 % (19-41); Mean Corpuscular Hgb 30.4 pg (27.0-32.0); Mean Corpuscular Volume 92.2 fL (81-99); Mean Platelet Vol. 11.2 fl (6.2-12.0); Monocyte# 0.41 X10^3/uL; Monocyte% 9.5 % (0-10); NRBC Flagged by Analyzer 0 % (0-5); Neutrophil # 2.41 X10^3/uL (2.7-7.7); Platelet Count 229 K/mm3 (150-450); RBC Distribution Width CV 12.4 % (11.6-14.6); RBC Distribution Width SD 41.9 fl (35.1-43.9); White Blood Count 4.3 K/mm3 (4.4-11.0)
[2022-08-05 10:53] LABS: ALB/GLOB Ratio 1.1 RATIO (0.9-2.4); AST(SGOT) 18 U/L (15-37); Alanine Aminotransfer ALT/SGPT 34 U/L (13-56); Albumin, Serum 3.8 g/dL (3.2-5.0); Alkaline Phosphatase 60 U/L (45-117); Anion Gap 6 (5-15); BUN 18 mg/dL (7-18); BUN/Creat Ratio 23.3 RATIO (10-20); Calcium,Total 8.8 mg/dL (8.5-10.1); Chloride 110 mmol/L (98-107); Cholesterol 192 mg/dL (200); Creatinine, Serum 0.77 mg/dL (0.55-1.02); EST Glomerular Filtration Rate 81 mL/min (>60); Est Glom Filt Rate - Afr Amer 97 mL/min (>60); Globulin 3.5 g/dL (2.2-4.2); Glucose 143 mg/dL (74-106); High Density Lipoprotein 48 mg/dL; Potassium 4.1 mmol/L (3.5-5.1); Protein, Total 7.3 g/dL (6.4-8.2); Sodium Level 141 mmol/L (136-145); T4 Free Direct 1.13 ng/dL (0.76-1.46); Thyroid Stim Hormone (TSH) 1.21 uIU/mL (0.358-3.74); Triglycerides 192 mg/dL; Very Low Density Lipoprotein 38 mg/dL (5-40)
[2022-08-05 10:54] LABS: Vitamin D,25 Hydroxy 49.6 ng/mL
[2022-08-05 11:33] LABS: Hemoglobin A1c 6.6 % (3.8-5.6)
== END | disposition home or self-care (01) ==
LOC: MTLAB 07:37
PROVIDERS: PCP Internal Medicine; Visit Provider Internal Medicine
DX: R73.03 Prediabetes (principal); Z13.29 Encounter for screening for other suspected endocrine disorder; E55.9 Vitamin D deficiency, unspecified
CPT/HCPCS: 36415; 80053; 80061; 82306; 83036; 84439; 84443; 85025

== ENCOUNTER 2022-09-17 13:21 | Outpatient (RCR) | payer OTHER, SELFPAY | END 2022-09-28 23:59 | LOC: NS 13:21 | PROVIDERS: PCP Internal Medicine; Referring Provider Internal Medicine; Visit Provider Internal Medicine | DX: Z71.3 Dietary counseling and surveillance (principal); E11.9 Type 2 diabetes mellitus without complications | CPT/HCPCS: 97802 ==

== ENCOUNTER 2022-09-21 17:30 | Outpatient (RCR) | payer SELFPAY | END 2022-09-28 23:59 | LOC: NS 17:30 | PROVIDERS: PCP Internal Medicine | DX: Z71.3 Dietary counseling and surveillance (principal); E11.9 Type 2 diabetes mellitus without complications ==

== ENCOUNTER 2022-11-19 07:28 | Outpatient (RCR) | payer BC, SELFPAY | END 2022-11-28 23:59 | LOC: DC 07:28 | PROVIDERS: PCP Internal Medicine; Referring Provider Internal Medicine; Visit Provider Internal Medicine | DX: Z71.3 Dietary counseling and surveillance (principal); E11.9 Type 2 diabetes mellitus without complications | CPT/HCPCS: 97803 ==

== ENCOUNTER → 2023-02-23 | Outpatient (CLI) | payer BC, SELFPAY ==
[2023-02-26 13:07] LABS: HPV APTIMA, High Risk Negative (Negative)
== END | disposition home or self-care (01) ==
LOC: LABSPEC 15:52
PROVIDERS: Referring Provider Nurse Practitioner Women's Health; Visit Provider Nurse Practitioner Women's Health
DX: Z12.4 Encounter for screening for malignant neoplasm of cervix (principal)
CPT/HCPCS: 87624; 88175; G0145

== ENCOUNTER → 2023-05-28 | Outpatient (CLI) | payer BC, SELFPAY ==
--- NOTE | 2023-05-28 09:52 | BI_ITS ---
MAMMOGRAPHY - BILATERAL SCREENING REASON FOR EXAM: Female, 63 years old. Routine annual screening examination. PERTINENT HISTORY: Mother with breast cancer. TECHNIQUE: Digital bilateral breast giorgio (3D mammographic acquisition) in the CC and MLO projections. 2-D mediolateral oblique (MLO) and craniocaudad (CC) views of both breasts were obtained. CAD: Full Field Digital Mammography with Computer Added Detection was performed. COMPARISON: Comparison is made with prior study of May 12, 2022 and March 20, 2021. FINDINGS: Breast Composition: There are scattered areas of fibroglandular density. There are no dominant masses or suspicious calcifications. No other significant abnormalities are identified. There has been no significant change since the prior study. BI/SCRN MAMM (CAD)W/GIORGIO BILAT IMPRESSION: Stable bilateral screening mammogram. Yearly follow-up mammogram recommended. (A) ASSESSMENT CATEGORY: BIRADS Category 1: Negative. A letter regarding these results will be sent to the patient by the facility within 30 days. Approximately 10% of breast cancers are not detected by mammography. A normal mammogram should not delay biopsy of a clinically suspicious abnormality. [id number] Electronically Signed: Ilan Watters MD at 10:53 EDT ,
== END | disposition home or self-care (01) ==
LOC: OPBI 09:50
PROVIDERS: PCP Internal Medicine; Referring Provider Nurse Practitioner Women's Health; Visit Provider Nurse Practitioner Women's Health
DX: Z12.31 Encounter for screening mammogram for malignant neoplasm of breast (principal); Z80.3 Family history of malignant neoplasm of breast
CPT/HCPCS: 77063; 77067

== ENCOUNTER → 2024-06-23 | Outpatient (CLI) | payer OTHER, SELFPAY ==
--- NOTE | 2024-06-23 15:30 | BI_ITS ---
EXAM: SCRN MAMM (CAD)W/GIORGIO BILAT DATE: 06/23/2024 CLINICAL HISTORY: F, Age 64 y/o , SCREENING FOR BREAST CANCER BREAST CANCER RISK ASSESSMENT: Has not been calculated. TECHNIQUE: Bilateral screening digital breast tomosynthesis with 2D and 3D images. Computer aided detection. COMPARISON: Prior exam(s) dated 05/28/2023 and 05/12/2022. FINDINGS: TISSUE DENSITY: The breast tissue is composed of scattered area of fibroglandular density. Bilateral Breast Mammographic Findings: No suspicious masses, suspicious cluster of microcalcifications, architectural distortion or secondary sign of malignancy is identified in either breast. Benign-appearing round microcalcifications are seen in both breasts. A benign macrocalcification is seen in the left breast. BI/SCRN MAMM (CAD)W/GIORGIO BILAT IMPRESSION: OVERALL FINAL ASSESSMENT: BIRADS 2 BENIGN FINDING RECOMMENDATION: Routine annual follow-up in 1 Year A letter with findings and recommendations will be mailed to the patient. Reading Location: [id number]
== END | disposition home or self-care (01) ==
LOC: OPBI 15:27
PROVIDERS: PCP Internal Medicine; Referring Provider Nurse Practitioner Women's Health; Visit Provider Nurse Practitioner Women's Health
DX: Z12.31 Encounter for screening mammogram for malignant neoplasm of breast (principal)
CPT/HCPCS: 77063; 77067

== ENCOUNTER → 2024-12-15 | Outpatient (CLI) | payer OTHER, SELFPAY ==
--- NOTE | 2024-12-15 14:50 | RAD_ITS ---
PROCEDURE: CHEST PA AND LATERAL 12/15/2024 REASON FOR EXAM: COUGH TECHNIQUE: Procedure Code: RADCXR Modality: DX Procedure: CHEST PA AND LATERAL FINDINGS: The heart is normal in size. The lungs are clear. No acute osseous abnormalities. RAD/Chest PA and Lateral IMPRESSION: NO ACUTE FINDINGS. Reading Location: [id number]
--- OUTSIDE RECORDS SUMMARY | 2024-12-15 15:17 | XMS RPT_ITS | CCD ---
Author Organization [facility] Care Team Providers Care Chemistry Faculty Member Name Role Phone Dr. Jaret Turcios Primary Care Provider Tam, Dr. Raygoza Other Provider Jaret Turcios Referring Provider Unavailable Dr. Tony Tam Attending Provider Dr. Jaret Turcios Referring Provider Dr. Brianne Rojo Attending Provider Dr. Brianne Rojo Other Provider Dr. Jaret Turcios Primary Care Provider Tam, Dr. Raygoza Primary Care Provider Dr. Jaret Turcios Referring Provider Dr. Brianne Rojo Attending Provider TAM PRO, DR. JARET Wong Primary Care Unavaila megan NAPOLES MD, KARLO Krishnamurthy Attending Unavailable DONY BRYANT, KARLO Krishnamurthy Attending Unavailable Dr. Jaret Turcios Primary Care Provider Dr. Jaret Turcios Referring Provider Dr. Primo Toth Attending Provider [phone] Dr. Primo Toth Primary Care Provider 1([phone]) Dr. Primo Toth Referring Provider 1(330)2 GARRETT Nettles Attending Provider Dr. Primo Toth Attending Provider [phone])2 Dr. Primo Toth Primary Care Provider 1(33 0) Dr. Primo Toth Attending Provider 1(330)2 Dr. Primo Toth Referring Provider 1(330)2 Clarissa HRBP, HRBP-C Kyra Attending Provider 1(330 ) Dr. Primo Toth Referring Provider 1(330)2 Clarissa HRBP, HRBP-C Kyra Attending Provider 1(330 ) Dr. Primo Toth Attending Provider 1(330)2 Oleghe, Efewongbe Primary Care Unavailable Clarissa HRBPKyra Attending Unavailable Clarissa HRBPKyra Referring Unavailable OlePrimo garrett Attending Unavailable Oleghe, Efewongbe Referring Unavailable Oleghe, Efewongbe Primary Care Unavailable Oleghe, Efewongbe Referring Unavailable Tawny Brar Attending Unavailable Oleghe, Efewongbe Primary Care Unavailable Oleghe, Efewongbe Referring Unavailable Troy Moran Attending Unavailable Oleghe, Efewongbe Primary Care Unavailable Medications Current Medications Medication Drug Class(es) Dates Sig (Normalized) Sig (Original) amoxicillin 875 mg / clavulanate 125 mg oral tablet (1 source) Penicillin-class Antibacterial Start: 04-05-2023 take 1 tablet by mouth twice daily Amoxicillin-Pot Clavulanate Active 1 TABLET PO TWICE A DAY April 05, 2023 1:00am benzonatate 100 mg oral capsule (1 source) Non-narcotic Antitussive Start: 04-09-2023 Benzonatate Active 100 MG PO 2 to 3 times per day April 09, 2023 1:00am Berberine-Herbal Comb No.18 (4 sources) Start: 02-23-2023 take 1 capsule by mouth twice daily Berberine-Herbal Comb No.18 Active 1 CAP PO TWICE A DAY February 23, 2023 3:07pm Start: 02-23-2023 take 1 capsule by mo [facility] twice daily Berberine-Herbal Comb No.18 Active 1 CAP PO TWICE A DAY February 23, 2023 2:07pm Start: 12-24-2022 End: 02-23-2023 Berberine-Herbal Comb No.18 Discontinued CAP PO December 24, 2022 12:00am February 23, 2023 3:08pm Start: 12-24-2022 End: 02-23-2023 Berberine-Herbal Comb No.18 Discontinued CAP PO December 23, 2022 11:00pm February 23, 2023 2:08pm 24 hr buPROPion hydrochloride 150 mg extended release oral tablet (2 sources) Aminoketone Start: 04-05-2023 End: 05-10-2023 take 150 mg by mouth once daily in the morning Bupropion Hcl Active 150 MG PO EVERY MORNING May 10, 2023 11:42am busPIRone hydrochloride 5 mg oral tablet (1 source) Start: 04-05-2023 take 5 mg by mouth twice daily Buspirone Active 5 MG PO TWICE A DAY April 05, 2023 1:00am cholecalciferol 0.025 mg oral capsule (15 sources) Vitamin D Start: 07-23-2022 take 25 ug by mouth once daily Cholecalciferol (Vitamin D3) Active 25 MCG PO DAILY July 23, 2022 12:00am Start: 09-08-2021 End: 07-23-2022 Cholecalciferol (Vitamin D3) (Vitamin D3) 50 mcg (2,000 unit) Capsule Discontinued 50 MCG PO MOWEFR September 08, 2021 12:00am July 23, 2022 4:02pm Vit B Comp W/C (11 sources) Start: 05-15-2021 Vit B Comp W/C Active 1 TABLET May 15, 2021 10:25am Start: 05-15-2021 End: 07-23-2022 Vit B Comp W/C Discontinued 1 TABLET SL/PO NEEDED May 14, 2021 11:00pm July 23, 2022 3:04pm Start: 05-15-2021 End: 07-23-2022 Vit B Comp W/C Discontinued 1 TABLET SL/PO NEEDED May 15, 2021 12:00am July 23, 2022 4:04pm Start: 05-15-2021 Vit B Comp W/C Active 1 TABLET SL/PO NEEDED May 14, 2021 11:00pm Start: 05-15-2021 Vit B Comp W/C Active 1 TABLET SL/PO NEEDED May 15, 2021 12:00am Vitamin D3 25 mcg (1000 intl units) oral capsule (1 source) Start: 12-19-2021 Vitamin D3 25 mcg (1000 intl units) oral capsule Dose : 25 mcg = 1 cap(s), Oral, Daily, 0 Refill(s) Start Date: 12/19/21 Status: Ordered Completed/Discontinued Medications Medication Drug Class(es) Dates Sig (Normalized) Sig (Original) 8 hr acetaminophen 650 mg extended release oral tablet (17 sources) Start: 07-23-2022 End: 12-24-2022 take 650 mg by mouth every twelve hours Acetaminophen Discontinued 650 MG PO Q12H July 23, 2022 12:00am December 24, 2022 5:20pm Start: 05-15-2021 End: 07-23-2022 take 1 tablet by mouth every eight hours Acetaminophen (Tylenol Arthritis) 650 mg Tablet Extended Release Discontinued 650 MG PO Q8H May 15, 2021 12:00am July 23, 2022 4:02pm clindamycin 10 mg/ml topical solution (10 sources) Lincosamide Antibacterial Start: 07-23-2022 End: 02-24-2023 Clindamycin Phosphate Discontinued 1 APPLIC TOPICAL DAILY February 23, 2023 3:07pm February 24, 2023 2:21pm Start: 12-19-2021 clindamycin 1% topical lotion Apply 1 nader, Topical, qAM, Lotion Start Date: 12/19/21 Status: Ordered meloxicam 15 mg oral tablet (12 sources) Nonsteroidal Anti-inflammatory Drug Start: 05-15-2021 End: 07-23-2022 take 15 mg by mouth once daily Meloxicam Discontinued 15 MG PO DAILY May 15, 2021 12:00am July 23, 2022 4:03pm 24 hr oxybutynin chloride 5 mg extended release oral tablet (11 sources) Cholinergic Muscarinic Antagonist Start: 05-15-2021 End: 02-23-2023 take 5 mg by mouth once daily Oxybutynin Chloride Discontinued 5 MG PO DAILY May 15, 2021 12:00am February 23, 2023 3:07pm Plexus (10 sources) Start: 09-08-2021 End: 07-23-2022 Plexus Discontinued 1 PACKET SL/PO DAILY September 07, 2021 11:00pm July 23, 2022 3:04pm Start: 09-08-2021 End: 07-23-2022 Plexus Discontinued 1 PACKET SL/PO DAILY September 08, 2021 12:00am July 23, 2022 4:04pm Start: 09-08-2021 Plexus Active 1 PACKET SL/PO DAILY September 07, 2021 11:00pm Start: 09-08-2021 Plexus Active 1 PACKET SL/PO DAILY September 08, 2021 12:00am Plexus Active (10 sources) Start: 09-08-2021 End: 07-23-2022 Plexus Active Discontinued 1 PACKET SL/PO DAILY September 07, 2021 11:00pm July 23, 2022 3:04pm Start: 09-08-2021 End: 07-23-2022 Plexus Active Discontinued 1 PACKET SL/PO DAILY September 08, 2021 12:00am July 23, 2022 4:04pm Start: 09-08-2021 Plexus Active Active 1 PACKET SL/PO DAILY September 07, 2021 11:00pm Start: 09-08-2021 Plexus Active Active 1 PACKET SL/PO DAILY September 08, 2021 12:00am zinc complex (5 sources) Start: 07-23-2022 End: 12-24-2022 zinc complex Discontinued PO July 23, 2022 12:00am December 24, 2022 5:21pm Start: 07-23-2022 End: 12-24-2022 zinc complex Discontinued PO July 22, 2022 11:00pm December 24, 2022 4:21pm Start: 07-23-2022 zinc complex A ctive PO July 23, 2022 12:00am Problems Active Problems Problem Classification Problem Date Documented Date Episodic/Chronic Anxiety disorders (3 sources) Mixed anxiety and depressive disorder; Translations: [Anxiety disorder, unspecified] Onset: 08-18-2023 04-05-2023 Chronic Diabetes mellitus without complication (7 sources) Type 2 diabetes mellitus; Translations: [Type 2 diabetes mellitus without complications] Onset: 12-03-2023 08-14-2022 Chronic Diabetes mellitus without complication (5 sources) Prediabetes; Translations: [Prediabetes] 07-23-2022 Episodic Esophageal disorders (12 sources) Gastroesophageal reflux disease; Translations: [Gastro-esophageal reflux disease without esophagitis] Chronic Hemorrhoids (10 sources) Hemorrhoids; Translations: [Unspecified hemorrhoids] 08-01-2021 Episodic Mood disorders (1 source) Mood disorders; Translations: [Depression, unspecified] Onset: 08-18-2023 Nutritional deficiencies (7 sources) Vitamin D deficiency; Translations: [Vitamin D deficiency, unspecified] 07-23-2022 Chronic Other and unspecified benign neoplasm (10 sources) History of polyp of colon; Translations: [Personal history of colonic polyps] 09-10-2021 Episodic Other and unspecified benign neoplasm (3 sources) Personal history of colonic polyps; Translations: [Personal history of colonic polyps] Episodic Other diseases of bladder and urethra (1 source) Overactive bladder; Translations: [Overactive bladder] Onset: 08-18-2023 Chronic Other ear and sense organ disorders (2 sources) Hearing loss; Translations: [Unspecified hearing loss, unspecified ear] 12-24-2022 Chronic Other ear and sense organ disorders (1 source) Unspecified hearing loss, unspecified ear; Translations: [Unspecified hearing loss] 12-24-2022 Chronic Other ear and sense organ disorders (2 sources) Otalgia, left ear; Translations: [Left ear pain] 04-05-2023 Episodic Other nutritional; endocrine; and metabolic disorders (5 sources) Body mass index 30+ - obesity; Translations: [Obesity, unspecified] 07-23-2022 Chronic Other nutritional; endocrine; and metabolic disorders (2 sources) Obesity, unspecified; Translations: [Obesity, unspecified] 07-23-2022 Chronic Other screening for suspected conditions (not mental disorders or infectious disease) (4 sources) Patient encounter status; Translations: [Encounter for screening for other suspected endocrine disorder] Onset: 06-27-2024 07-23-2022 Episodic Other skin disorders (5 sources) Hidradenitis suppurativa; Translations: [Hidradenitis suppurativa] 07-23-2022 Episodic Other skin disorders (3 sources) Hidradenitis suppurativa; Translations: [Hidradenitis] 07-23-2022 Episodic Residual codes; unclassified (10 sources) Sleep apnea; Translations: [Sleep apnea, unspecified] 08-01-2021 Chronic Residual codes; unclassified (2 sources) Family history of malignant neoplasm of breast in first degree relative; Translations: [Family history of malignant neoplasm of breast] 02-23-2023 Episodic Residual codes; unclassified (2 sources) Family history of malignant neoplasm of breast; Translations: [Family history of malignant neoplasm of breast] 02-23-2023 Episodic Past or Other Problems Problem Classification Problem Date Documented Da te Episodic/Chronic Immunizations and screening for infectious disease (1 source) Encounter for immunization; Translations: [Encounter for immunization] Onset: 12-03-2023 Episodic Results Test Name Value Interpretation Reference Range Facility SCRN MAMM (CAD)W/GIORGIO BILATo n 06-23-2024 SCRN MAMM (CAD)W/GIORGIO BILAT [facility] Services [address] [place] [address] SCRN MAMM (CAD)W/GIORGIO BILAT MR#: [id number] Acct: [id number] Name: EDER PATE Rep #: [id number] : 1960 F 64 From: Sandra Shannon PCP: Dr. Primo Toth MD Status: REG CLI Study: SCRN MAMM (CAD)W/GIORGIO BILAT Date of Exam: 05/31 07/23 Exam# [id number] Ordering Dr: Kyra Romo HRBP HRBP -C EXAM: SCRN MAMM (CAD)W/GIORGIO BILAT DATE: 06/23/2024 CLINICAL HISTORY: F, Age 64 y/o , SCREENING FOR BREAST CANCER BREAST CANCER RISK ASSESSMENT: Has not been calculated. TECHNIQUE: Bilateral screening digital breast tomosynthesis with 2D and 3D images. Computer aided detection. COMPARISON: Prior exam(s) dated 05/28/2023 and 05/12/2022. FINDINGS: TISSUE DENSITY: The breast tissue is composed of scattered area of fibroglandular density. Bilateral Breast Mammographic Findings: No suspicious masses, suspicious cluster of microcalcifications, architectural distortion or secondary sign of malignancy is identified in either breast. Benign-appearing round microcalcifications are seen in both breasts. A benign macrocalcification is seen in the left breast. BI/SCRN MAMM (CAD)W/GIORGIO BILAT IMPRESSION: OVERALL FINAL ASSESSMENT: BIRADS 2 BENIGN FINDING RECOMMENDATION: Routine annual follow-up in 1 Year A letter with findings and recommendations will be mailed to the patient. Reading Location: [id number] CC: SABIHA Romo; Dr. Primo Toth MD Business Management Professor: Signed Normal [facility] Internal Medicine Office Vis luis 05-04-2024 Internal Medicine Office Visit [facility] [address] [place] [address] [place] [address] OFFICE VISIT Date of Service: 05/04/24 MR#: [id number] Acct: [id number] Name: EDER PATE Rep #: [id number] : 1960 Provider: GARRETT Torres Age/Sex: 64/F Location: [facility] Status: Signed Intake Vital Signs 12/03/23 13:23 05/04/24 16:01 Height 5 ft 3 in 5 ft 3 in Weight: 173 lb 172 lb BMI 30.6 30.4 BP 122/64 H 122/70 H Blood Pressure Location Lt brachial Lt brachial Position Sitting Sitting Respiration 16 16 Pulse 90 93 Pulse Source Monitor Monitor Temp 97.7 F L 97.5 F L Temp Source Temporal Temporal Pulse Oximetry (%) 98 95 Oxygen Delivery Method room air room air Intake Visit Reasons: ACUTE - MED DISCUSSION Chief Complaint: MED FOLLOW UP Litigation Legal Secretary Required: No Is patient in pain?: No Allergies No Known Allergies Allergy (Verified 05/04/24 15:52) Medications ???Medication ???Instructions ???Recorded ???Confirmed ???Type cholecalciferol (vitamin D3) 25 25 mcg PO DAILY 07/23/22 05/04/24 History mcg (1,000 unit) capsule lactobacillus combination no.4 3 3,000 mmu cells PO DAILY 08/13/23 05/04/24 History billion cell capsule (Probiotic) buspirone 5 mg tablet 5 mg PO BID #180 tabs 12/03/2308/23 Rx bupropion HCl 150 mg 24 hr tablet, 150 mg PO QAM #90 tabs 05/04/24 05/04/24 Rx extended release clindamycin phosphate 1 % topical 1 applic topical QDAY #60 mL 08/2305/04/24 Rx solution mirabegron 25 mg tablet,extended 25 mg PO QDAY #30 tabs 05/04/24 Rx release 24 hr Nurse's Note: Needs a refill on clindamyacin liquid, and soap for her HS. States lately she has been feeling grouchy and not herself. Is wondering if she needs to up buspar, and wellbutrin dose. Wanting to change to myrbetric, states she was having forgetfullness from oxybutnin and dc'd it. [facility] Medical History Overactive bladder Left ear pain Anxiety and depression Hearing impairment Type 2 diabetes mellitus Obesity (BMI 30-39.9) Vitamin D deficiency Hidradenitis suppurativa Bladder disease Wears hearing aid Wears contact lenses Post-menopausal Hidradenitis Diabetes Arthritis Easy bruising Back pain Gastric reflux CPAP (continuous positive airway pressure) dependence Non-smoker Shortness of breath on exertion History of pain when walking History of edema History of stress test History of echocardiogram Surgical History History of tubal ligation History of knee replacement History of cardiac catheterization Hx of colonoscopy History of D C History of tonsillectomy History of cholecystectomy Family History Mother Colon cancer Breast cancer Heart disease Arthritis Father Diabetes Heart disease Hypertension Arthritis Myocardial infarction Sister Thyroid disorder Mental disorder Psychiatric care Other Anxiety Social History Smoking Status: Never smoker Electronic Cigarette Use: not used alcohol intake: current alcohol intake frequency: holidays/special occasions only details: rarely substance use type: does not use what type of physical activity do you participate in: walking, swimming and weight training seatbelt use: always do you feel safe at home: Yes Female Reproductive History Menstrual Ab spontaneous: 2 HPI HPI Chief Complaint: MED FOLLOW UP Details: EDER PATE, is a 64 F who presents to the office today for f/u on her medications as she needs a refill of her topical medication for her hidradenitis suppurativa. This is something that she has used in the past which has been helpful for her to keep her at bedtime under control. Patient does have a long history of having mixed anxiety/depression. She has been on multiple medications in the past. She states that she was doing well at the same time she is wondering whether she has plateaued a little bit in that she has been a "little bitchy". She states that still feels like the buspar is working pretty good for her anxiety level. She previously was taking the BuSpar once daily and then did have to increase this to twice daily due to having some racing thoughts at night. She does not have any issues sleeping currently with the medication. Patient also has a history of having overactive bladder. With even some episodes of incontinence. She previously was taking oxybutynin as needed but realized over time that this actually was causing her to have some memory issues/forgetfulness and therefore she discontinued this. She does continue to have symptoms (more content not included)... Normal [facility] Internal Medicine Office Vis luis 12-03-2023 Internal Medicine Office Visit [facility] [place] [address] [place] [address] OFFICE VISIT Date of Service: 12/03/23 MR#: [id number] Acct: [id number] Name: EDER PATE Rep #: [id number] : 1960 Provider: SABIHA floyd Age/Sex: 63/F Location: [facility] Status: Signed Intake Vital Signs 08/13/23 14:02 12/03/23 13:23 Height 5 ft 3 in 5 ft 3 in Weight: 172 lb 173 lb BMI 30.4 30.6 BP 136/88 H 122/64 H Blood Pressure Location Lt brachial Lt brachial Position Sitting Sitting Respiration 16 16 Pulse 96 90 Pulse Source Monitor Monitor Temp 97.5 F L 97.7 F L Temp Source Temporal Temporal Pulse Oximetry (%) 97 98 Oxygen Delivery Method room air room air Intake Visit Reasons: ACUTE MED FU Chief Complaint: MED FOLLOW UP Litigation Legal Secretary Required: No Accompanied by: Self Is patient in pain?: No Allergies No Known Allergies Allergy (Verified 12/03/23 13:18) Medications ???Medication ???Instructions ???Recorded ???Confirmed ???Type cholecalciferol (vitamin D3) 25 25 mcg PO DAILY 07/23/22 12/03/23 History mcg (1,000 unit) capsule berberine-herbal comb no.18 capsule 1 cap PO BID 02/23/23 12/03/23 History clindamycin phosphate 1 % topical 1 applic topical DAILY PRN 08/13/23 12/03/23 History solution lactobacillus combination no.4 3 3,000 mmu cells PO DAILY 08/13/23 12/03/23 History billion cell capsule (Probiotic) bupropion HCl 150 mg 24 hr tablet, 150 mg PO QAM #90 tabs 08/16/23 12/03/23 Rx extended release oxybutynin chloride 5 mg 5 mg PO DAILY PRN urinary 10/04/23 12/03/23 Rx tablet,extended release 24 hr incontinence #90 tabs buspirone 5 mg tablet 5 mg PO BID #180 tabs 12/03/23 12/03/23 Rx PFSH Medical History Overactive bladder Left ear pain Anxiety and depression Hearing impairment Type 2 diabetes mellitus Obesity (BMI 30-39.9) Vitamin D deficiency Hidradenitis suppurativa Bladder disease Wears hearing aid Wears contact lenses Post-menopausal Hidradenitis Diabetes Arthritis Easy bruising Back pain Gastric reflux CPAP (continuous positive airway pressure) dependence Non-smoker Shortness of breath on exertion History of pain when walking History of edema History of stress test History of echocardiogram Surgical History History of tubal ligation History of knee replacement History of cardiac catheterization Hx of colonoscopy History of D C History of tonsillectomy History of cholecystectomy Family History Mother Colon cancer Breast cancer Heart disease Arthritis Father Diabetes Heart disease Hypertension Arthritis Myocardial infarction Sister Thyroid disorder Mental disorder Psychiatric care Other Anxiety Social History Smoking Status: Never smoker Electronic Cigarette Use: not used alcohol intake: current alcohol intake frequency: holidays/special occasions only details: rarely substance use type: does not use what type of physical activity do you participate in: walking, swimming and weight training seatbelt use: always do you feel safe at home: Yes Female Reproductive History Menstrual Ab spontaneous: 2 HPI HPI Chief Complaint: MED FOLLOW UP Details: EDER PATE, is a 63 F who presents to the office today for follow-up of her chronic medical additions. She is UTD on preventative screenings and is due for routine labs. screenings. She is UTD on vaccinations with exception of influenza vaccination. She received shingles and pneumonia vaccines through local pharmacy. She reports she is up-to-date on COVID vaccines as well. She has a history of depression currently managed with Wellbutrin and buspirone. She reports it is working well but she has noticed that at nighttime her mind will race. She is currently utilizing BuSpar only in the morning. She is inquiring on if she should resume twice daily dosing, stating she did not do this prior as she forgets to take the nighttime dose. She reports she is sleeping okay but will wake up in the middle of the night to get a drink of water as difficulty falling asleep due to her thoughts. She follows with counseling at [facility]. Denies SI. Additionally has a history of type 2 diabetes mellitus, hemoglobin A1c is 6.4% which is the same as it was 3 months ago. She walks a lot during the day and monitors her diet. She is not currently on any medications. Additionally patient has a history of overactive bladder/urinary incontinence. She utilizes oxybutynin on an as-needed basis. She reports this is working well for her. She has a history of APURVA and uses a CPAP and benefits from its use. (more content not included)... Normal [facility] Internal Medicine Office Vis luis 08-13-2023 Internal Medicine Office Visit [facility] [address] [place] [address] [place] [address] OFFICE VISIT Date of Service: 08/13/23 MR#: [id number] Acct: [id number] Name: EDER PATE Rep #: [id number] : 1960 Provider: Dr. Primo bridges MD Age/Sex: 63/F Location: [facility] Status: Signed Intake Vital Signs 04/05/23 14:32 08/13/23 14:02 Height 5 ft 3 in 5 ft 3 in Weight: 172 lb BMI 30.4 BP 136/88 H Blood Pressure Location Lt brachial Position Sitting Respiration 16 Pulse 96 Pulse Source Monitor Temp 97.5 F L Temp Source Temporal Pulse Oximetry (%) 97 Oxygen Delivery Method room air Intake Visit Reasons: MED FOLLOW UP Chief Complaint: MED FOLLOW UP Is patient in pain?: No Allergies No Known Allergies Allergy (Verified 08/13/23 13:56) Medications ???Medication ???Instructions ???Recorded ???Confirmed ???Type cholecalciferol (vitamin D3) 25 25 mcg PO DAILY 07/23/22 08/13/23 History mcg (1,000 unit) capsule berberine-herbal comb no.18 capsule 1 cap PO BID 02/23/23 08/13/23 History buspirone 5 mg tablet 5 mg PO BID #60 tabs 04/05/23 08/13/23 Rx benzonatate 100 mg capsule 100 mg PO BID-TID PRN cough #90 04/09/23 08/13/23 Rx caps bupropion HCl 150 mg 24 hr tablet, 150 mg PO QAM #90 tabs 08/13/23 08/13/23 Rx extended release clindamycin phosphate 1 % topical 1 applic topical DAILY PRN 08/13/23 History solution lactobacillus combination no.4 3 3,000 mmu cells PO DAILY 08/13/23 08/13/23 History billion cell capsule (Probiotic) oxybutynin chloride 5 mg 5 mg PO DAILY PRN urinary 08/13/23 08/13/23 Rx tablet,extended release 24 hr incontinence #30 tabs PFSH Medical History (Updated 08/13/23 @ 15:[address] Primo Toth MD) Overactive bladder Left ear pain Anxiety and depression Hearing impairment Type 2 diabetes mellitus Obesity (BMI 30-39.9) Vitamin D deficiency Hidradenitis suppurativa Bladder disease Wears hearing aid Wears contact lenses Post-menopausal Hidradenitis Diabetes Arthritis Easy bruising Back pain Gastric reflux CPAP (continuous positive airway pressure) dependence Non-smoker Shortness of breath on exertion History of pain when walking History of edema History of stress test History of echocardiogram Surgical History History of tubal ligation History of knee replacement History of cardiac catheterization Hx of colonoscopy History of D C History of tonsillectomy History of cholecystectomy Family History Mother Colon cancer Breast cancer Heart disease Arthritis Father Diabetes Heart disease Hypertension Arthritis Myocardial infarction Sister Thyroid disorder Mental disorder Psychiatric care Other Anxiety Social History Smoking Status: Never smoker Electronic Cigarette Use: not used alcohol intake: current alcohol intake frequency: holidays/special occasions only details: rarely substance use type: does not use what type of physical activity do you participate in: walking, swimming and weight training seatbelt use: always do you feel safe at home: Yes Female Reproductive History Menstrual Ab spontaneous: 2 HPI HPI Chief Complaint: MED FOLLOW UP Details: EDER PATE, is a 63 F who presents to the office today for follow-up of her chronic medical conditions. Also has some concerns. Currently on Wellbutrin which was started for depression. Also on buspirone. Has only had to take buspirone daily and so far, has found Wellbutrin helpful. Aside from constipation which improved with probiotics, tolerating medication well. History of overactive bladder/urinary incontinence which for the most part is stable. States that she has had physical therapy and does her exercises which she finds helpful. Going on a trip to [place] and would like oxybutynin as needed which she has used in the past. History of diabetes mellitus type II, A1c is at 6.4 today up from 6.1. There have been some dietary changes lately however, she is hoping to correct this. ROS Const Constitutional: No body ache, chills, excessive sweating, fatigue, fever(s), frequent falls, headache(s), snoring, weakness, sleep problems or change in appetite Eyes Eyes: No blurry vision, change in vision, bulging eyes, floaters, visual disturbances or Light sensitivity ENT ENT: No abnormal hearing, ear or mastoid pain, tinnitus, balance problems, nosebleed/epistaxis, nasal congestion, nasal discharge, headache(s), neck pain or sore throat Resp Respiratory: No cough, excessive phlegm production, pain on inspiration, shortness of breath, snoring or wheezing Cardio Cardiology: No chest pain at rest, chest pa (more content not included)... Normal [facility] Laboratory - Microbiology an d Antimicrobial susceptibilityon 04-05-2023 S. pyogenes Ag IA Ql (Unsp spec) Negative [facility] Cervical or vagninal specime n microscopic examination by cytology stain (reported asOrdered By: Kyra Romo on 02-23-2023 Cytology report Cyto stain Doc (Cvx/Vag) Comment . [facility] Comment on above: The Pap smear is a s creening test designed to aid in thedetection of premalignant and malignant conditions of theuterine cervix. It is not a diagnostic procedure andshould not be used as the sole means of detecting cervicalcancer. Both false-positive and false-negative reports dooccur. Detection in cervical specim en of any of human papilloma virus (HPV) 16, 18, 31, 33,Ordered By: Kyra Romo on 02-23-2023 HPV 16+18+31+33+35+39+45+ 51+52+56+58+59+66+68 DNA Probe+sig amp Ql (Cvx) Negative Negative [facility] Comment on above: This nucleic acid am plification test detects fourteen high- risk HPV types (16,18,31,33,35,39,45,51,52,56,58,59,66,68)without differentiation. Laboratory - CytologyOrdered By: Kyra Romo on 02-23-2023 [employer] Cyto stain Nom (Cvx/Vag) [ID] Comment . [facility] Comment on above: Ailyn Richardson Cytot echnologist (ASCP) Laboratory - Miscellaneous t estsOrdered By: Kyra Romo on 02-23-2023 Service comment (Unsp spec) [Interp] Comment . [facility] Comment on above: This liquid based Th inPrep(R) pap test was screened withthe use of an image guided system. Service comment (Unsp spec) [Interp] . . [facility] Liquid-based cerv Pap + CT/G C by SUKHWINDER w reflex to high-risk HPV for ASCUSOrdered By: Kyra Romo on 02-23-2023 Cytology report Cyto stain.thin prep Doc (Cvx/Vag) Comment . [facility] Comment on above: Criteria not met, HP V Genotype not performed.Performed at: [address] [id number] Director: Lilly Flynn MD, Phone: [phone] at: =[facility] [place] [id number] Director: Lilly Flynn MD, Phone: [phone] No Panel InformationOrdered By: Kyra Romo on 02-23-2023 Pathology report final diagnosis Narrative Comment . [facility] Comment on above: NEGATIVE FOR INTRAEP ITHELIAL LESION OR MALIGNANCY. Laboratory - Hematology and Cell countson 12-24-2022 HbA1c (Bld) [Mass fraction] 6.1 % 4.2-6.3 [facility] Absolute lymphocyte countOrd ered By: Primo Toth on 08-05-2022 Lymphocytes Auto (Unsp spec) [#/Vol] 1.29 10*3/uL 0.83-4.51 [facility] Basophil percentageOrdered B y: Primo Toth on 08-05-2022 Basophils/100 WBC (Bld) 1.4 % 0-1 [facility] Bilirubin [Mass/Vol] 0.50 mg/dL 0.20-1.[address] [facility] Comment on above: For patients on eltr ombopag therapy, use of Dimension [place] TBIL is not recommended. Chloride [Moles/Vol] 110 mmol/L 98-[address] [facility] Cholesterol [Mass/Vol] 192 mg/dL <200 [facility] Comment on above: <200 mg/dL Desirable 200-240 mg/dL Borderline >240 mg/dL High Risk Eosinophils/100 WBC (Bld) 3.0 % 0-5 [facility] Glucose [Mass/Vol] 143 mg/dL 74-106 [facility] Comment on above: Fasting Glucose resu lt greater than or equal to 126 mg/dL suggests DIABETES MELLITUS per A.D.A. criteria. Neutrophils (Bld) [#/Vol] 2.4 10*3/uL 2.0-7.7 [facility] Neutrophils/100 WBC (Bld) 56.0 % 47-70 [facility] Potassium [Moles/Vol] 4.1 mmol/L 3.5-5.1 [facility] Protein [Mass/Vol] 7.3 g/dL 6.4-8.2 [facility] Sodium [Moles/Vol] 141 mmol/L 136-145 [facility] Triglyceride [Mass/Vol] 192 mg/dL <199 [facility] Comment on above: The drugs N-Acetylcy steine and Metamizole may falsely depress this assay.Serum Triglycerides Reference Interval Normal <150 mg/dL Borderline high 150 - 199 mg/dL High 200 - 499 mg/dL Very High > or = 500 mg/dL WBC (Bld) [#/Vol] 4.3 10*3/uL 4.4-11.0 [facility] Blood erythrocytes count (nu mber/volume)Ordered By: Primo Toth on 08-05-2022 RBC (Bld) [#/Vol] 5.00 10*6/uL 4.2-5.4 [facility] Blood hemoglobin measurement (mass/volume)Ordered By: Primo Toth on 08-05-2022 Hemoglobin (Bld) [Mass/Vol] 15.2 g/dL 12.0-15.0 [facility] Blood lymphocytes/100 leukoc ytesOrdered By: Primo Toth on 08-05-2022 Lymphocytes/100 WBC (Bld) 29.9 % 19-41 [facility] Blood monocytes/100 leukocyt esOrdered By: rooseveltbloomingtondaryl Toth on 08-05-2022 Monocytes/100 WBC (Bld) 9.5 % 0-10 [facility] Blood platelet mean volumeOr dered By: Primo Toth on 08-05-2022 Platelet mean volume (Bld) [Entitic vol] 11.2 fL 6.2-12.0 [facility] Determination of erythrocyte mean corpuscular volume (MCV)Ordered By: Primo Toth on 08-05-2022 MCV (RBC) [Entitic vol] 92.2 fL 81-99 [facility] Hematocrit Auto (Bld) [Volum e fraction]Ordered By: Primo Toth on 08-05-2022 Hematocrit (Bld) [Volume fraction] 46.1 % 37-47 [facility] Laboratory - Chemistry and C hemistry - challengeOrdered By: Primo Toth on 08-05-2022 ALP [Catalytic activity/Vol] 60 U/L 45-117 [facility] ALT [Catalytic activity/Vol] 34 U/L 13-56 [facility] CO2 [Moles/Vol] 25.0 mmol/L 21.0-32.0 [facility] Free T4 [Mass/Vol] 1.13 ng/dL 0.76-1.46 [facility] Globulin (S) [Mass/Vol] 3.5 g/dL 2.2-4.2 [facility] Urea nitrogen/Creatinine [Mass ratio] 23.3 mg/mg 10-20 [facility] Laboratory - Hematology and Cell countsOrdered By: Primo Toth on 08-05-2022 Erythrocyte distribution width (RBC) [Entitic vol] 41.9 fL 35.1-43.9 [facility] Erythrocyte distribution width (RBC) [Ratio] 12.4 % 11.6-14.6 [facility] Immature granulocytes/100 WBC (Bld) 0.200 % 0.0-0.9 [facility] Comment on above: IG% - Immature Granu locytes (promyelocytes, myelocytes and metamyelocytes) > 1% indicates that a LEFT SHIFT is Present. MCH (RBC) [Entitic mass] 30.4 pg 27.0-32.0 [facility] Nucleated RBC/100 WBC (Bld) [Ratio] 0 % 0-5 [facility] MCHC Auto (RBC) [Mass/Vol]Or dered By: Primo Toth on 08-05-2022 MCHC (RBC) [Mass/Vol] 33.0 g/dL 32-36 [facility] No Panel InformationOrdered By: Primo Toth on 08-05-2022 Estimated GFR (MDRD) Amer 97 mL/min >60 [facility] Comment on above: GFR Calc Estimated GFR (MDRD) Non-Af Amer 81 mL/min >60 [facility] Comment on above: Non- GFR Calc Thyroid Stimulating Hormone (TSH) 1.21 uIU/mL 0.358-3.74 [facility] Vitamin D 25-Hydroxy 49.6 ng/mL [facility] Comment on above: Vitamin D 25(OH) Sta tus Range Deficiency <20 ng/mL (50nmol/L) Insufficiency 20 - 30 ng/mL (50 - 75 nmol/L) Sufficiency 30 - 100 ng/mL (75 - 250 nmol/L) Toxicity >100 ng/mL (>250 nmol/L) Platelets bldOrdered By: Ceferino Toth on 08-05-2022 Platelets (Bld) [#/Vol] 229 10*3/uL 150-450 [facility] Serum or plasma albumin fadi urement (mass/volume)Ordered By: Primo Toth on 08-05-2022 Albumin [Mass/Vol] 3.8 g/dL 3.2-5.0 [facility] Serum or plasma albumin/glob ulin mass ratioOrdered By: Primo Toth on 08-05-2022 Albumin/Globulin [Mass ratio] 1.1 {ratio} 0.9-2.4 [facility] Serum or plasma calcium fadi urement (mass/volume)Ordered By: Primo Toth on 08-05-2022 Calcium [Mass/Vol] 8.8 mg/dL 8.5-10.1 [facility] Serum or plasma cholesterol in HDL measurement (mass/volume)Ordered By: Primo Toth on 08-05-2022 Cholesterol in HDL [Mass/Vol] 48 mg/dL >40 [facility] Comment on above: The drugs N-Acetylcy steine and Metamizole may falsely depress this assay. Reference Range HDL <40 mg/dL Low HDL Cholesterol HDL >or= 60 mg/dL High HDL Cholesterol Serum or plasma cholesterol in VLDL measurement (mass/volume)Ordered By: Primo Toth on 08-05-2022 Cholesterol in VLDL [Mass/Vol] 38 mg/dL 5-40 [facility] Serum or plasma creatinine m easurement (mass/volume)Ordered By: Primo Toth on 08-05-2022 Creatinine [Mass/Vol] 0.77 mg/dL 0.55-1.02 [facility] Comment on above: The validity of the calculated GFR & GFRAA in patients over 70 years has not been determined. Clinical correlation is essential. Serum or plasma low density lipoprotein (LDL) cholesterol measurement (mass/volume)Ordered By: Primo Toth on 08-05-2022 Cholesterol in LDL [Mass/Vol] 106 mg/dL 0-130 [facility] Serum or plasma urea nitroge n measurement (mass/volume)Ordered By: Primo Toth on 08-05-2022 Urea nitrogen [Mass/Vol] 18 mg/dL 7-18 [facility] Thin prep Papanicolaou smear with manual screeningOrdered By: Primo Toth on 08-05-2022 Thin prep Papanicolaou smear with manual screening 18 U/L 15-37 [facility] Thin prep Papanicolaou smear with manual screening 6 5-15 [facility] Whole blood hemoglobin A1c/t otal hemoglobin ratio (mass fraction)Ordered By: Primo Toth on 08-05-2022 HbA1c (Bld) [Mass fraction] 6.6 % 3.8-5.6 [facility] Comment on above: Normal < 5.7 % Predi abetic 5.7 - 6.4 % Diabetic >or= 6.5 % Please note range changes. Gel ABOon 12-30-2021 ABO/Rh Interp Positive Invalid Interpretation Code [facility] ([place]) Comment on above: Performed By: #### A NSG, ABOG #### [address] [id number] Gel ABSon 12-30-2021 Antibody Screen Gel Negative Normal Counts include 234 beds at the [facility] ([place]) Comment on above: Performed By: #### A NSG, ABOG #### [address] [address] XR KNEE 1 OR 2 VIEWS LEFTon 12-30-2021 XR KNEE 1 OR 2 VIEWS LEFT ORIGINAL EXAMINATION: TWO XRAY VIEWS OF THE LEFT KNEE 12/30/2021 9:05 am COMPARISON: None. HISTORY: ORDERING SYSTEM PROVIDED HISTORY: Reason for Exam: Status Post Arthroplasty FINDINGS: Skin kendy are present from the surgery and there is some air and fluid within the soft tissues and joint. The prosthetic components are well seated and no adjacent fracture is visible. IMPRESSION: Expected postoperative findings. Interpreted by: Jeffry Tillman MD Preliminary Report By: Jeffry Tillman MD Electronically signed By Jeffry Tillman MD Dictated Date: 12/30/2021 9:07:33 AM Prelim Date: 12/30/2021 9:07:59 AM Sign Date: 12/30/2021 9:07:59 AM Ordering Provider: KARLO NAPOLES [facility] ([place]) CT KNEE W/O CONTRAST LEFTon 12-21-2021 CT KNEE W/O CONTRAST LEFT ORIGINAL EXAMINATION: CT OF THE LEFT KNEE WITHOUT CONTRAST 12/19/2021 2:31 pm TECHNIQUE: CT of the left knee was performed without the administration of intravenous contrast. Multiplanar reformatted images are provided for review. Automated exposure control, iterative reconstruction, and/or weight based adjustment of the mA/kV was utilized to reduce the radiation dose to as low as reasonably achievable. COMPARISON: None. HISTORY ORDERING SYSTEM PROVIDED HISTORY: Reason for Exam: varus deformity left knee. FINDINGS: No acute fracture or dislocation. Normal osseous mineralization. No visible aggressive osseous lesions. There is mild joint space narrowing of the medial and lateral femorotibial compartment. Moderate joint space narrowing of the patellofemoral compartment, greatest laterally. Subchondral cystic changes are present of the lateral aspect patellofemoral compartment. Tricompartmental marginal osteophytes. No significant joint effusion. Small volume Patel's cyst with intracapsular osteochondral bodies, measuring up to 0.9 cm. Insertional enthesopathy noted the quadriceps tendon. Visible tendons appear grossly intact. Ligaments are poorly evaluated on this examination. No significant muscle atrophy. Provided images of the left hip and left hemipelvis exhibit no acute osseous abnormalities or aggressive osseous lesions. Mild left hip degenerative change. No acute process is noted of the included intrapelvic structures. Colonic diverticulosis is noted without evidence of acute diverticulitis. Provided the ankle exhibit no acute osseous abnormalities or aggressive osseous lesions. Type I accessory navicular. Mild midfoot degenerative change. IMPRESSION: 1. No acute osseous abnormalities or aggressive osseous lesions. 2. Tricompartmental osteoarthrosis of the knee, most pronounced of the patellofemoral compartment. Small volume Patel's cyst with intracapsular osteochondral bodies. 3. Additional findings, as above. Interpreted by: Mundo Carpenter DO Preliminary Report By: Mundo Carpenter DO Electronically signed By Mundo Carpenter DO Dictated Date: 12/21/2021 4:50:36 PM Prelim Date: 12/21/2021 5:12:51 PM Sign Date: 12/21/2021 5:12:51 PM Ordering Provider: KARLO NAPOLES Normal [facility] ([place]) ALBon 12-19-2021 Albumin Level 4.1 G/dL Normal 3.4-4.8 [facility] ([place]) Comment on above: Performed By: #### A LB, ANSG, ABOG #### [facility] [address] [place], [place] [address] Gel ABOon 12-19-2021 ABO/Rh Interp Positive Invalid Interpretation Code [facility] ([place]) Comment on above: Performed By: #### A LB, ANSG, ABOG #### [facility] [address] [place] [id number] Gel ABSon 12-19-2021 Antibody Screen Gel Negative Normal Counts include 234 beds at the [facility] ([place]) Comment on above: Performed By: #### A LB, ANSG, ABOG #### [address] [place], [place] [address] LABORATORYOrdered By: Lidya Alcantara on 12-19-2021 ABO/Rh Interp Positive Invalid Interpretation Code AO BB SS Antibody Screen Gel Negative ABSC (12/19/21 12:45 PM) Invalid Interpretation Code AO BB SS LABORATORYOrdered By: Beth Leyva on 12-19-2021 Albumin BCP dye [Mass/Vol] 4.1 G/dL Invalid Interpretation Code 3.4 - 4.8 G/dL AO ADM SS Absolute lymphocyte counton 12-05-2021 Lymphocytes Auto (Unsp spec) [#/Vol] 1.73 10*3/uL 0.83-4.51 [facility] Work Phone: Basophil percentageon 2021 Basophils/100 WBC (Bld) 0.9 % 0-1 [facility] Work Phone: Chloride [Moles/Vol] 109 mmol/L 98-[address] [facility] Work Phone: Eosinophils/100 WBC (Bld) 1.6 % 0-5 [facility] Work Phone: Glucose [Mass/Vol] 109 mg/dL 74-106 [facility] Work Phone: Comment on above: Fasting Glucose resu lt from 100 to 125 mg/dL suggests IMPAIRED HOMEOSTASIS per A.D.A. criteria. Neutrophils (Bld) [#/Vol] 3.2 10*3/uL 2.0-7.7 [facility] Work Phone: [phone] Neutrophils/100 WBC (Bld) 57.6 % 47-70 [facility] Work Phone: [phone] Potassium [Moles/Vol] 3.8 mmol/L 3.5-5.1 [facility] Work Phone: [phone] Sodium [Moles/Vol] 143 mmol/L 136-145 [facility] Work Phone: [phone] WBC (Bld) [#/Vol] 5.6 10*3/uL 4.4-11.0 [facility] Work Phone: Blood erythrocytes count (nu mber/volume)on 12-05-2021 RBC (Bld) [#/Vol] 4.86 10*6/uL 4.2-5.4 [facility] Work Phone: Blood hemoglobin measurement (mass/volume)on 12-05-2021 Hemoglobin (Bld) [Mass/Vol] 15.4 g/dL 12.0-15.0 [facility] Work Phone: Blood lymphocytes/100 leukoc yteson 12-05-2021 Lymphocytes/100 WBC (Bld) 30.9 % 19-41 [facility] Work Phone: [phone] Blood monocytes/100 leukocyt eson 12-05-2021 Monocytes/100 WBC (Bld) 8.8 % 0-10 [facility] Work Phone: [phone] Blood platelet mean volumeon 12-05-2021 Platelet mean volume (Bld) [Entitic vol] 11.0 fL 6.2-12.0 [facility] Work Phone: [phone] Determination of erythrocyte mean corpuscular volume (MCV)on 12-05-2021 MCV (RBC) [Entitic vol] 93.8 fL 81-99 [facility] Work Phone: Hematocrit Auto (Bld) [Volum e fraction]on 12-05-2021 Hematocrit (Bld) [Volume fraction] 45.6 % 37-47 [facility] Work Phone: Laboratory - Chemistry and C hemistry - challengeon 12-05-2021 CO2 [Moles/Vol] 26.0 mmol/L 21.0-32.0 [facility] Work Phone: Urea nitrogen/Creatinine [Mass ratio] 25.4 mg/mg 10- [facility] Work Phone: Laboratory - Hematology and Cell countson 12-05-2021 Erythrocyte distribution width (RBC) [Entitic vol] 43.8 fL 35.1-43.9 [facility] Work Phone: Erythrocyte distribution width (RBC) [Ratio] 12.6 % 11.6-14.6 [facility] Work Phone: Immature granulocytes/100 WBC (Bld) 0.200 % 0.0-0.9 [facility] Work Phone: Comment on above: IG% - Immature Granu locytes (promyelocytes, myelocytes and metamyelocytes) > 1% indicates that a LEFT SHIFT is Present. MCH (RBC) [Entitic mass] 31.7 pg 27.0-32.0 [facility] Work Phone: Nucleated RBC/100 WBC (Bld) [Ratio] 0 % 0-5 [facility] Work Phone: MCHC Auto (RBC) [Mass/Vol]on 12-05-2021 MCHC (RBC) [Mass/Vol] 33.8 g/dL 32-36 [facility] Work Phone: No Panel Informationon 12-05 Estimated GFR (MDRD) Amer 96 mL/min >60 [facility] Work Phone: Comment on above: GFR Calc Estimated GFR (MDRD) Non-Af Amer 79 mL/min >60 [facility] Work Phone: Comment on above: Non- GFR Calc Platelets bldon 12-05-2021 Platelets (Bld) [#/Vol] 238 10*3/uL 150-450 [facility] Work Phone: Serum or plasma calcium fadi urement (mass/volume)on 12-05-2021 Calcium [Mass/Vol] 9.8 mg/dL 8.5-10.1 [facility] Work Phone: Serum or plasma creatinine m easurement (mass/volume)on 12-05-2021 Creatinine [Mass/Vol] 0.79 mg/dL 0.55-1.02 [facility] Work Phone: Comment on above: The validity of the calculated GFR & GFRAA in patients over 70 years has not been determined. Clinical correlation is essential. Serum or plasma urea nitroge n measurement (mass/volume)on 12-05-2021 Urea nitrogen [Mass/Vol] 20 mg/dL 7-18 [facility] Work Phone: Thin prep Papanicolaou smear with manual screeningon 12-05-2021 Thin prep Papanicolaou smear with manual screening 8 5-15 [facility] Work Phone: Basophil percentageon 2021 Chloride [Moles/Vol] 109 mmol/L 98-[address] [facility] Work Phone: Glucose [Mass/Vol] 127 mg/dL 74-106 [facility] Work Phone: Comment on above: Fasting Glucose resu lt greater than or equal to 126 mg/dL suggests DIABETES MELLITUS per A.D.A. criteria. Potassium [Moles/Vol] 4.0 mmol/L 3.5-5.1 [facility] Work Phone: Sodium [Moles/Vol] 140 mmol/L 136-145 [facility] Work Phone: WBC (Bld) [#/Vol] 5.1 10*3/uL 4.4-11.0 [facility] Work Phone: Blood erythrocytes count (nu mber/volume)on 04-24-2021 RBC (Bld) [#/Vol] 4.94 10*6/uL 4.2-5.4 [facility] Work Phone: Blood hemoglobin measurement (mass/volume)on 04-24-2021 Hemoglobin (Bld) [Mass/Vol] 15.6 g/dL 12.0-15.0 [facility] Work Phone: Blood platelet mean volumeon 04-24-2021 Platelet mean volume (Bld) [Entitic vol] 11.6 fL 6.2-12.0 [facility] Work Phone: Determination of erythrocyte mean corpuscular volume (MCV)on 04-24-2021 MCV (RBC) [Entitic vol] 92.1 fL 81-99 [facility] Work Phone: Erythrocyte sedimentation ra kimberly 04-24-2021 ESR (Bld) [Velocity] 17 mm/h 0-[address] [facility] Work Phone: Hematocrit Auto (Bld) [Volum e fraction]on 04-24-2021 Hematocrit (Bld) [Volume fraction] 45.5 % 37-47 [facility] Work Phone: Laboratory - Chemistry and C hemistry - challengeon 04-24-2021 CO2 [Moles/Vol] 28.0 mmol/L 21.0-32.0 [facility] Work Phone: Urea nitrogen/Creatinine [Mass ratio] 19.0 mg/mg 10-20 [facility] Work Phone: Laboratory - Hematology and Cell countson 04-24-2021 Erythrocyte distribution width (RBC) [Entitic vol] 41.8 fL 35.1-43.9 [facility] Work Phone: Erythrocyte distribution width (RBC) [Ratio] 12.4 % 11.6-14.6 [facility] Work Phone: MCH (RBC) [Entitic mass] 31.6 pg 27.0-32.0 [facility] Work Phone: MCHC Auto (RBC) [Mass/Vol]on 04-24-2021 MCHC (RBC) [Mass/Vol] 34.3 g/dL 32-36 [facility] Work Phone: No Panel Informationon 04-24 Anti-Nuclear Antibody Screen Negative Negative [facility] Work Phone: Comment on above: Performed at: - [employer] [address] [id number] Director: Cristobal Gates PhD, Phone: [phone] Estimated GFR (MDRD) Amer 112 mL/min >60 [facility] Work Phone: Comment on above: GFR Calc Estimated GFR (MDRD) Non-Af Amer 93 mL/min >60 [facility] Work Phone: Comment on above: Non- GFR Calc Thyroid Stimulating Hormone (TSH) 2.70 uIU/mL 0.358-3.74 [facility] Work Phone: Vitamin D 25-Hydroxy 34.1 ng/mL [facility] Work Phone: Comment on above: Vitamin D 25(OH) Sta tus Range Deficiency <20 ng/mL (50nmol/L) Insufficiency 20 - 30 ng/mL (50 - 75 nmol/L) Sufficiency 30 - 100 ng/mL (75 - 250 nmol/L) Toxicity >100 ng/mL (>250 nmol/L) Platelets bldon 04-24-2021 Platelets (Bld) [#/Vol] 204 10*3/uL 150-450 [facility] Work Phone: Serum or plasma calcium fadi urement (mass/volume)on 04-24-2021 Calcium [Mass/Vol] 8.9 mg/dL 8.5-10.1 [facility] Work Phone: Serum or plasma creatinine m easurement (mass/volume)on 04-24-2021 Creatinine [Mass/Vol] 0.68 mg/dL 0.55-1.02 [facility] Work Phone: Comment on above: The validity of the calculated GFR & GFRAA in patients over 70 years has not been determined. Clinical correlation is essential. Serum or plasma urea nitroge n measurement (mass/volume)on 04-24-2021 Urea nitrogen [Mass/Vol] 13 mg/dL 7-18 [facility] Work Phone: Thin prep Papanicolaou smear with manual screeningon 04-24-2021 Thin prep Papanicolaou smear with manual screening 3 5-15 [facility] Work Phone: Vital Signs Date Time Vital Sign Value Performing Clinician Faci lity 04-05-2023 14:32-0500 Body height 160.[address] Primo Toth Work Phone: [facility] 04-05-2023 14:32-0500 Body mass index (BMI) [Ratio] 30.8 kg/m2 Dr. Primo Toth Work Phone: [facility] 04-05-2023 14:32-0500 Body temperature 98.3 [degF] Dr. Primo Toth Work Phone: [facility] 04-05-2023 14:32-0500 Body weight 78.[address] Primo Toth Work Phone: [facility] 04-05-2023 14:32-0500 Diastolic blood pressure 80 mm[Hg] Dr. Primo Toth Work Phone: [facility] 04-05-2023 14:32-0500 Heart rate 98 /min Dr. Primo Toth Work Phone: [facility] 04-05-2023 14:32-0500 Respiratory rate 14 /min Dr. Primo Toth Work Phone: [facility] 04-05-2023 14:32-0500 SaO2% (BldA) [Mass fraction] 95 % Dr. Primo Toth Work Phone: [facility] 04-05-2023 14:32-0500 Systolic blood pressure 112 mm[Hg] Dr. Primo Toth Work Phone: [facility] 02-23-2023 14:09-0500 Body height 160.[address] Primo Toth Work Phone: [facility] [facility] 02-23-2023 14:06-0500 Body mass index (BMI) [Ratio] 30.9 kg/m2 Dr. Primo Toth Work Phone: [facility] 02-23-2023 14:06-0500 Body weight 79.[address] Primo Toth Work Phone: [facility] 02-23-2023 14:06-0500 Diastolic blood pressure 84 mm[Hg] Dr. Primo Toth Work Phone: [facility] 02-23-2023 14:06-0500 Systolic blood pressure 129 mm[Hg] Dr. Primo Toth Work Phone: [facility] 12-24-2022 17:21-0400 Body mass index (BMI) [Ratio] 31.3 kg/m2 Dr. Primo Toth Work Phone: [facility] 12-24-2022 17:21-0400 Body temperature 98.4 [degF] Dr. Primo Toth Work Phone: [facility] 12-24-2022 17:21-0400 Body weight 80.[address] Primo Toth Work Phone: [facility] 12-24-2022 17:21-0400 Diastolic blood pressure 78 mm[Hg] Dr. Primo Toth Work Phone: [facility] 12-24-2022 17:21-0400 Heart rate 78 /min Dr. Primo Toth Work Phone: [facility] 12-24-2022 17:21-0400 Respiratory rate 16 /min Dr. Primo Toth Work Phone: [facility] 12-24-2022 17:21-0400 SaO2% (BldA) [Mass fraction] 94 % Dr. Primo Toth Work Phone: [facility] 12-24-2022 17:21-0400 Systolic blood pressure 124 mm[Hg] Dr. Primo Toth Work Phone: [facility] 11-19-2022 07:30-0400 Body height 160.[address] Primo Toth Work Phone: [facility] 11-19-2022 07:30-0400 Body weight 81.[address] Primo Toth Work Phone: [facility] 09-17-2022 15:00-0400 Body height 160.[address] Jaret Turcios Work Phone: [facility] 09-17-2022 15:00-0400 Body weight [address] Jaret Turcios Work Phone: [facility] 07-23-2022 16:05-0400 Body mass index (BMI) [Ratio] 33.6 kg/m2 Dr. Jaret Turcios Work Phone: [facility] 07-23-2022 16:05-0400 Body temperature 98.1 [degF] Dr. Jaret Turcios Work Phone: [facility] 07-23-2022 16:05-0400 Body weight 86.[address] Jaret Turcios Work Phone: [facility] 07-23-2022 16:05-0400 Diastolic blood pressure 80 mm[Hg] Dr. Jaret Turcios Work Phone: [facility] 07-23-2022 16:05-0400 Heart rate 87 /min Dr. Jaret Turcios Work Phone: [facility] 07-23-2022 16:05-0400 Respiratory rate 14 /min Dr. Jaret Turcios Work Phone: [facility] 07-23-2022 16:05-0400 SaO2% (BldA) [Mass fraction] 99 % Dr. Jaret Turcios Work Phone: [facility] 07-23-2022 16:05-0400 Systolic blood pressure 128 mm[Hg] Dr. Jaret Turcios Work Phone: [facility] 12-19-2021 12:15-0400 Body height [address] KARLO NAPOLES MD [facility] 12-19-2021 12:15-0400 Body weight 83.[address] KARLO NAPOLES MD [facility] 12-19-2021 12:15-0400 Body weight 33.41 kg/m2 DR KARLO NAPOLES MD [facility] 12-19-2021 12:15-0400 diastolic 74 mm[Hg] DR KARLO NAPOLES MD [facility] 12-19-2021 12:15-0400 Heart rate 84 /min DR KARLO NAPOLES MD [facility] 12-19-2021 12:15-0400 Respiratory rate 20 /min DR KARLO NAPOLES MD [facility] 12-19-2021 12:15-0400 systolic 122 mm[Hg] DR KARLO NAPOLES MD [facility] 09-10-2021 09:30-0400 Body temperature 97.3 [degF] Dr. Jaret Turcios Work Phone: [facility] Work Phone: 09-10-2021 09:30-0400 Diastolic blood pressure 67 mm[Hg] Dr. Jaret Turcios Work Phone: [facility] Work Phone: 09-10-2021 09:30-0400 Heart rate 70 /min Dr. Jaret Turcios Work Phone: [facility] Work Phone: 09-10-2021 09:30-0400 Respiratory rate 18 /min Dr. Jaret Turcios Work Phone: [facility] Work Phone: 09-10-2021 09:30-0400 SaO2% (BldA) [Mass fraction] 94 % Dr. Jaret Turcios Work Phone: [facility] Work Phone: 09-10-2021 09:30-0400 Systolic blood pressure 110 mm[Hg] Dr. Jaret Turcios Work Phone: [facility] Work Phone: 09-10-2021 07:57-0400 Body height 160.[address] Jaret Turcios Work Phone: [facility] Work Phone: 09-10-2021 07:57-0400 Body mass index (BMI) [Ratio] 32.1 kg/m2 Dr. Jaret Turcios Work Phone: [facility] Work Phone: 09-10-2021 07:57-0400 Body weight 82.[address] Jaret Turcios Work Phone: [facility] Work Phone: 08-01-2021 14:18-0400 Body mass index (BMI) [Ratio] 33.3 kg/m2 Dr. Jaret Turcios Work Phone: [facility] Work Phone: 08-01-2021 14:18-0400 Body temperature 97.9 [degF] Dr. Jaret Turcios Work Phone: [facility] Work Phone: 08-01-2021 14:18-0400 Body weight 85.[address] Jaret Turcios Work Phone: [facility] Work Phone: 08-01-2021 14:18-0400 Diastolic blood pressure 77 mm[Hg] Dr. Jaret Turcios Work Phone: [facility] Work Phone: 08-01-2021 14:18-0400 Heart rate 94 /min Dr. Jaret Turcios Work Phone: [facility] Work Phone: 08-01-2021 14:18-0400 Respiratory rate 17 /min Dr. Jaret Turcios Work Phone: [facility] Work Phone: 08-01-2021 14:18-0400 SaO2% (BldA) [Mass fraction] 97 % Dr. Jaret Turcios Work Phone: [facility] Work Phone: 08-01-2021 14:18-0400 Systolic blood pressure 117 mm[Hg] Dr. Jaret Turcios Work Phone: [facility] Work Phone: Encounters Encounter Date Encounter Type Care Provider Facility Start: 06-23-2024 End: 06-23-2024 ambulatory Primo Toth Facility:[facility] Start: 05-04-2024 End: 05-04-2024 ambulatory Primo Toth Facility:[facility] Start: 12-03-2023 End: 12-03-2023 ambulatory Primo Toth Facility:[facility] Start: 08-13-2023 End: 08-13-2023 ambulatory Primo Toth Facility:[facility] Start: 05-28-2023 End: 05-28-[address] Primo Toth Work Phone: [facility] Work Phone: Start: 05-28-2023 End: 05-28-[address] Primo Toth Work Phone: [facility]Out[facility] Work Phone: Start: 04-05-2023 End: 04-05-[address] Primo Toth Work Phone: [facility] Work Phone: Start: 02-23-2023 End: 02-23-[address] Primo Toth Work Phone: [facility] Work Phone: Start: 02-23-2023 End: 02-23-[address] Primo Toth Work Phone: [facility]-Laboratory, Specimen Work Phone: Start: 02-23-2023 End: 02-23-[address] Primo Toth Work Phone: [facility] Work Phone: Start: 12-24-2022 End: 12-24-[address] Primo Toth Work Phone: [facility] Work Phone: Start: 11-19-2022 End: 11-28-[address] Primo Toth Work Phone: [facility] Work Phone: Start: 11-19-2022 End: 11-28-[address] Primo Toth Work Phone: [facility] Work Phone: Start: 09-28-2022 End: 09-28-[address] Jaret Turcios Work Phone: [facility] Work Phone: Start: 09-28-2022 End: 09-28-[address] [facility] Work [facility] Start: 09-21-2022 End: 09-28-[address] [facility] Work [facility]: Start: 09-17-2022 End: 09-28-[address] Jaret Turcios Work Phone: [facility] Work Phone: Start: 09-17-2022 End: 09-28-[address] [facility] Work [facility]: Start: 09-17-[address] [facility]ios [facility] Work [facility]: Start: 08-18-2022 End: 08-18-[address] Jaret Turcios Work Phone: [facility] Work Phone: Start: 08-14-2022 Non-patient / Non-visit Dr. Garrett Turcios Work Phone: [facility] Start: 08-05-2022 End: 08-05-[address] Jaret Turcios Work Phone: [facility] Work Phone: Start: 07-23-[address] Josemanuel Turcios Work Phone: [facility] Start: 07-23-2022 End: 07-23-[address] Jaret Turcios Work Phone: [facility] Work Phone: Start: 05-12-2022 End: 05-12-2022 ambulatory [facility] Work Phone: Start: 05-12-2022 End: 05-12-2022 Patient encounter procedure [facility] Start: 12-30-2021 End: 12-30-[address] JARET TURCIOS MD. Facility:[facility] Start: 12-19-2021 End: 12-20-2021 ambulatory KARLO NAPOLES MD Facility:[facility] Start: 12-19-2021 End: 12-19-[address] KARLO NAPOLES MD [facility] Start: 12-05-2021 End: 12-05-[address] Jaret Turcios Work Phone: [facility] Work Phone: Start: 12-05-2021 End: 12-05-[address] [facility]ios [facility] Start: 09-23-[address] Jaret Turcios Work Phone: [facility]Physical Therapy Start: 09-11-2021 End: 09-11-[address] Jaret Turcios Work Phone: [facility] Start: 09-10-2021 Non-patient / Non-visit Dr. Garrett Turcios Work Phone: [facility] Start: 09-10-2021 End: 09-10-2021 Admission to same day surgery center Dr. Jaret Turcios Work Phone: [facility]Endoscopy Start: 08-01-2021 End: 08-01-[address] Jaret Turcios Work Phone: [facility] Start: 05-15-2021 Non-patient / Non-visit Dr. Garrett Turcios Work Phone: [facility] Start: 05-15-2021 End: 05-15-[address] Jaret Turcios Work Phone: [facility] Start: 04-24-2021 End: 04-24-[address] Jaret Turcios [facility] Start: 04-23-2021 End: 04-23-[address] Jaret Turcios Work Phone: [facility]Radiology, [place] Start: 03-20-2021 End: 03-20-[address] Jaret Turcios Work Phone: [facility]Out[facility] Breast [facility] Start: 02-06-2021 End: 02-06-[address] Jaret Turcios Work Phone: [facility]Physical Therapy Procedures Date Procedure Procedure Detail Performing Clinician Start: 05-28-2023 Screening mammography Maggie Toth Work Phone: Start: 05-12-2022 Screening mammography Start: 09-11-2021 Radiologic examinati on of knee Dr. Jaret Turcios Work Phone: Start: 09-10-[address] Jaret toro Work Phone: Start: 05-15-2021 Radionuclide imaging of perfusion of myocardium under exercise stress Dr. Jaret Turcios Work Phone: Start: 04-23-2021 Radiologic examinati on of knee Dr. Jaret Turcios Work Phone: Start: 03-20-2021 Screening mammography Maggie Turcios Work Phone: Cholecystectomy DR KARLO LOPEZ MD Dilation and curettage DR CLAUDE BRYANT Comment on above: x2 Ligation of fallopian tube Magige NAPOLES MD Tonsillectomy DR KARLO DALLAS MD Plan of Treatment Date Care Activity Detail Author Start: 08-14-2022 Patient referral [facility] Work Phone: Start: 07-23-2022 Patient referral [facility] Work Phone: Start: 09-10-2021 Colonoscopy flx dx w/collj spec when pfrmd DIAGNOSTIC COLONOSCOPY [facility] Work Phone: Start: 09-10-2021 Patient discharge [facility] Work Phone: MG Breast - bilatera l Screening [facility] Patient referral [facility] Work Phone: Immunizations Immunization Date Immunization Notes Care Provider [facility] 12-18-2022 influenza, injectabl e, quadrivalent, preservative free Dr. Primo Toth Work Phone: [facility] 05-24-2020 COVID-19, mRNA, LNP- S, PF, 100 mcg or 50 mcg dose; Translations: [Moderna COVID-19 Vaccine] DR KALRO NAPOLES MD [facility] Vaccine [facility] 04-27-2020 COVID-19, mRNA, LNP- S, PF, 100 mcg or 50 mcg dose; Translations: [Moderna COVID-19 Vaccine] DR KARLO NAPOLES MD [facility] Vaccine [facility] Payers Date Payer Category Payer Self-pay [id number] 2023 Unknown [id number] 2021 Unknown [id number] 1960 Unknown [id number] 1960 Unknown [id number] Self-pay SELF PAY BY PATIENT REQUEST [id number] ZAIDA [id number] Unknown [id number] Unknown [id number] Unknown [id number] Unknown [id number] Social History Date Type Detail Facility [facility] Work Phone: Start: 1960 Sex Assigned At Female A [facility] Start: 09-10-2021 End: 04-05-2023 Tobacco smoking status MOIS Unknown if ever smoked [facility] Start: 12-19-2021 Tobacco smoking status Never s moked tobacco (finding) [facility] Goals Date Patient Goal Desired Activity /State Functional Status Date Assessment Result Facility 12-19-2021 Functional Status Sensory Defici ts Hearing deficit, left ear, Hearing deficit, right ear [facility] Mental Status Date Assessment Result Facility 09-10-2021 Cognitive function Voice/Name [facility] Work Phone: Clinical Notes 02-23-2023 Note Date & Type Note Facility 02-23-2023 Note [facility] Pap Smear Specimen Adequacy February 23, 2023 4:07pm Comment . Satisfactory for evaluation. No endocervical component is identified. Comment on above: Satisfactory for becky luation. No endocervical component is identified. 02-23-2023 Note [facility] Pap Smear Specimen Adequacy February 23, 2023 5:07pm Comment . Satisfactory for evaluation. No endocervical component is identified. Comment on above: Satisfactory for becky luation. No endocervical component is identified. Evaluation + Plan note Future Appointments [facility] Evaluation note No assessment inform ation available [facility] Work Phone: Evaluation note Diagnosis Onset Date Acid reflux acute Hx of colonic polyp acute [facility] Work Phone: Evaluation note* Diagnosis Onset Date Resolution Status Hx of colonic polyp acute [facility] Work Phone: Evaluation note* Diagnosis Onset Date Resolution Status Borderline type 2 diabetes mellitus chronic Hidradenitis suppurativa chr onic Obesity (BMI 30-39.9) chroni c Vitamin D deficiency chronic [facility] Work Phone: Evaluation note* Diagnosis Onset Date Resolution Status Hearing impairment chronic Hidradenitis suppurativa chr onic Type 2 diabetes mellitus chr onic Family history of breast cancer in mother acute Routine gynecological examination noneactive [facility] Work Phone: Evaluation note* Diagnosis Onset Date Resolution Status Family history of breast cancer in mother acute Routine gynecological examination noneactive Left ear pain acute Anxiety and depression chron ic [facility] Work Phone: Hospital course Narrative No data available for this section [facility] Hospital Discharge instructions No data available for this section [facility] Progress note No data available for this section [facility] Chief Complaint and Reason for Visit Chief Complaint LT SIDED SOATICA SCREENING KNEE PAIN ABN EKG ABN EKG Chief Complaint ABN EKG ABN EKG COLONOSCOPY- HISTORY OF POLYPS Reason for Visit Acid reflux Hx of colonic polyp Chief Complaint COLONOSCOPY- HISTORY OF POLYPS LEFT KNEE PAIN Reason for Visit Acid reflux Hx of colonic polyp Chief Complaint LEFT KNEE PAIN LEFT KNEE PAIN/RX HERE Reason for Visit Hx of colonic polyp Chief Complaint SCREENING Chief Complaint HRBP. EST CARE E ORDER PRE EMPLOYMENT/NON DOT/DRUG/CCHO TYPE 2 DM DINING W/ DIABETES Reason for Visit Borderline type 2 di abetes mellitus Hidradenitis suppurativa Obesity (BMI 30-39.9) Vitamin D deficiency Chief Complaint E ORDER PRE EMPLOYMENT/NON DOT/DRUG/CCHO TYPE 2 DM DINING W/ DIABETES TYPE 2 DM Chief Complaint TYPE 2 DM follow up Annual (BI ARCHITECT) Reason for Visit Hearing impairment Hidradenitis suppurativa Type 2 diabetes mellitus Family history of breast cancer in mother Routine gynecological examination Chief Complaint Annual (BI ARCHITECT) MEDICATION DISCUSSION SCREENING Reason for Visit Family history of br east cancer in mother Routine gynecological examination Left ear pain Anxiety and depression Family History No Family History Records Found Relationship Condition Age at Onset Recorded Date/T anabel mother Malignant neoplasm of colon Unknown Malignant neoplasm of breast Unknown Cardiac disease Unknown father Diabetes mellitus Unknown Hypertension Unknown sister Disorder of thyroid Unknown Relationship Condition Age at Onset Recorded Date/T anabel Not Specified Anxiety Unknown mother Malignant neoplasm of colon Unknown Malignant neoplasm of breast Unknown Cardiac disease Unknown Arthritis Unknown father Diabetes mellitus Unknown Hypertension Unknown Myocardial infarction Unknown sister Disorder of thyroid Unknown Mental disorder Unknown Psychiatric care Unknown Advance Directives No Advanced Directives Records Found Advance Directive Response Recorded Date/ Time Name of Medical Power of Archery Instructor SPOUSE September 08, 2021 8:45am Living Will Yes September 08, 2021 8:45am Power of Archery Instructor Yes September 08 2 8:45am Advance Directive Response Recorded Date/ Time Living Will Yes September 08, 2021 8:45am Power of Archery Instructor Yes September 08 2 8:45am Advance Directive Response Recorded Date/ Time Living Will Yes August 18, 2022 1:09pm Power of Archery Instructor Yes August 18 1:09pm Advance Directive Response Recorded Date/ Time Living Will Yes August 18, 2022 12:09pm Power of Archery Instructor Yes August 18 12:09pm Summary Purpose Additional Source Comments Goals (unrecognized section and content) Goals may be documented in a n alternate section No data available for this sectionGoals may be documented in an alternate sectionGoals may be documented in an alternate sectionGoals may be documented in an alternate sectionGoals may be documented in an alternate sectionGoals may be documented in an alternate sectionGoals may be documented in an alternate sectionGoals may be documented in an alternate section INFORMATION SOURCE (unrecogn ized section and content) DATE CREATED AUTHOR 12/31/2021 [facility] ([place]) DATE CREATED AUTHOR AUTHOR'S ORGANIZ ATION 06/28/2024 [facility] Care Teams (unrecognized sec tion and content) Team Status: Active Member Role Status Dates Dr. Adams Miller MD Family Provider Active Dr. Jaret Turcios MD Primary Care Provider Active Team Status: Inactive Member Role Status Dates Dr. Jaret Turcios MD Primary Care Provider, Attending Provider Active Team Status: Active Member Role Status Dates Dr. Adams Miller MD Family Provider Active Dr. Primo Toth MD Primary Care Provider Active Team Status: Inactive Member Role Status Dates Dr. Jaret Turcios MD Primary Care Provider, Referring Provider Active Dr. Primo Toth MD Attending Provider Active Team Status: Active Member Role Status Dates Dr. Primo Toth MD Primary Care Provider, Atten ding Provider Active Team Status: Inactive Member Role Status Dates Dr. Primo Toth MD Primary Care Provider, Refer ring Provider Active Luciano Casillas PA, PA Attending Provider Active Team Status: Inactive Member Role Status Dates Dr. Primo Toth MD Primary Care Provider, Atten ding Provider Active Team Status: Inactive Member Role Status Dates Dr. Primo Toth MD Primary Care Provider Active Self Referred Attending Provider Active Team Status: Active Member Role Status Dates Dr. Primo Toth MD Primary Care P rovider, Attending Provider, Referring Provider Active Team Status: Inactive Member Role Status Dates Dr. Primo Toth MD Primary Care P rovider, Attending Provider, Referring Provider Active Team Status: Active Member Role Status Dates Dr. Adams Miller MD Family Provider Active Team Status: Inactive Member Role Status Dates Dr. Primo Toth MD Referring Provider Active Kyra Romo HRBP, HRBP-C Attending Provider Active Team Status: Inactive Member Role Status Dates Kyra Romo HRBP, HRBP-C Attending Provider, Referring Provider Active Team Status: Inactive Member Role Status Dates Dr. Primo Toth MD Attending Provider Active Team Status: Inactive Member Role Status Dates Kyra Romo HRBP, HRBP-C Attending Provider, Referring Provider Active Dr. Primo Toth MD Primary Care Provider Active FOR RECORDS PERTAINING TO PATIENTS WHO ARE OR HAVE BEEN ENROLLED IN A CHEMICAL DEPENDENCY/SUBSTANCEABUSE PROGRAM, SOME INFORMATION MAY BE OMITTED. This clinical summary was aggregated from multiple sources. Caution should be exercised in using it in the provision of clinical care. This summary normalizes information from multiple sources, and as a consequence, information in this document may materially change the coding, format and clinical context of patient data. In addition, data may be omitted in some cases. CLINICAL DECISIONS SHOULD BE BASED ON THE PRIMARY CLINICAL RECORDS. [facility]. provides no warranty or guarantee of the accuracy or completeness of information in this document.
== END | disposition home or self-care (01) ==
LOC: MTRAD 14:50
PROVIDERS: PCP Internal Medicine; Referring Provider Physician Assistant; Visit Provider Physician Assistant
DX: R05.9 Cough, unspecified (principal)
CPT/HCPCS: 71046

== ENCOUNTER 2025-01-10 19:41 | Emergency (ER) | payer OTHER, SELFPAY ==
[2025-01-10 19:42] VITALS: BP 159/106; PULSE 131; RESP 18; TEMP 36.9; O2SAT 100; BMI 30.9
--- OUTSIDE RECORDS SUMMARY | 2025-01-10 19:50 | XMS RPT_ITS | CCD ---
Author Organization [facility] Care Team Providers Care Licensing Specialist Name Role Phone Dr. Jaret Turcios Primary [...] Dr. Primo Toth Referring Provider [phone] Clarissa RENOVATOR MACHINE OPERATOR, RENOVATOR MACHINE OPERATOR-C Kyra Attending Provider [phone] Dr. Primo Toth Referring Provider [phone] Clarissa RENOVATOR MACHINE OPERATOR, RENOVATOR MACHINE OPERATOR-C Kyra Attending Provider [phone] Dr. Primo Toth Attending Provider [phone] Clarissa RENOVATOR MACHINE OPERATOR, Kyra Attending Unavailable Oleghe, Efewongbe Primary Care Unavailable Clarissa RENOVATOR MACHINE OPERATOR, Kyra Referring Unavailable Oleghe, Efewongbe Primary Care Unavailable Jan VASQUEZ, Troy Referring Unavailable Jan VASQUEZ, Troy Attending Unavailable Oleghe, Efewongbe Referring Unavailable Oleghe, Efewongbe Primary Care Unavailable Jan VASQUEZ, Troy Attending Unavailable Oleghe, Efewongbe Referring Unavailable Oleghe, Efewongbe Primary Care Unavailable Jan VASQUEZ, Troy Attending Unavailable Jan VASQUEZ, Troy Attending Physician Janey BRYANT, Dr. Tillman Primary Care Physician Janey BRYANT, Dr. Tillman Referring Provider [phone] Troy Moran Referring Provider Medications Current Medications Medication Drug Class(es) Dates Sig (Normalized) Sig (Original) apple cider vinegar 600 mg oral capsule (1 source) Start: 12-14-2024 take 1 capsule by mouth three times daily Berberine-Herbal Comb No.18 (4 sources) Start: 02-23-2023 take 1 capsule by mouth twice daily Berberine-Herbal Comb No.18 Active 1 CAP PO TWICE A DAY February 23, 2023 3:07pm Start: 02-23-2023 take 1 capsule by mo [facility] twice daily Berberine-Herbal Comb No.18 Active 1 CAP PO TWICE A DAY February 23, 2023 2:07pm Start: 12-24-2022 End: 02-23-2023 Berberine-Herbal Comb No.18 Discontinued CAP PO December 24, 2022 12:00am February 23, 2023 3:08pm Start: 12-24-2022 End: 02-23-2023 Berberine-Herbal Comb No.18 Discontinued CAP PO December 23, 2022 11:00pm February 23, 2023 2:08pm 24 hr buPROPion hydrochlorid e 150 mg extended release oral tablet (9 sources) Aminoketone Start: 04-05-2023 End: 11-14-2024 take 1 tablet by mouth once daily in the morning busPIRone hydrochloride 5 mg oral tablet (7 sources) Start: 12-14-2024 take 1 tablet by marlene once daily Start: 04-05-2023 End: 12-14-2024 take 1 tablet by mouth twice daily Buspirone 5 mg tablet Discontinued 5 mg PO TWICE A DAY 60 1 November 14, 2024 11:27am December 14, 2024 4:08pm cholecalciferol 0.025 mg ora l capsule (18 sources) Vitamin D Start: 12-14-2024 take 1 capsule by mo [facility] twice daily Start: 07-23-2022 End: 12-14-2024 take 1 capsule by mouth once daily Cholecalciferol (Vitamin D3) 25 mcg (1,000 unit) capsule Discontinued 25 ug PO DAILY July 23, 2022 12:00am December 14, 2024 4:10pm Start: 09-08-2021 End: 07-23-2022 Cholecalciferol (Vitamin D3) (Vitamin D3) 50 mcg (2,000 unit) Capsule Discontinued 50 ug PO MOWE September 08, 2021 12:00am July 23, 2022 4:02pm clindamycin 10 mg/ml topical solution (15 sources) Lincosamide Antibacterial Start: 05-04-2024 Start: 08-13-2023 End: 05-04-2024 Clindamycin Phosphate 1 % so lution Discontinued 1 NMA TOPICAL DAILY as needed August 13, 2023 1:58pm May 04, 2024 5:36pm Start: 07-23-2022 End: 08-13-2023 Clindamycin Phosphate 1 % so lution Discontinued 1 NMA TOPICAL DAILY 60 3 February 24, 2023 2:20pm August 13, 2023 1:58pm Start: 07-23-2022 End: 12-27-2023 Clindamycin Phosphate Discon tinued 1 APPLIC TOPICAL DAILY February 23, 2023 3:07pm February 24, 2023 2:21pm Start: 12-19-2021 clindamycin 1% topical lotion Apply 1 nader, Topical, qAM, Lotion Start Date: 12/19/21 Status: Ordered Lactobacillus Combination No.4 (Probiotic) 3 billion cell capsule (1 source) Start: 08-13-2023 take 3 capsules by mouth once daily pantoprazole 40 mg delayed release oral tablet (1 source) Proton Pump Inhibitor Start: 12-14-2024 take 1 tablet by mouth once daily Vibegron (1 source) Start: 12-14-2024 take 1 tablet by mouth once daily Vit B Comp W/C (11 sources) Start: [...] acetaminophen 650 mg extended release oral tablet (19 sources) Start: 07-23-2022 End: 12-24-2022 take 1 tablet by mouth every twelve hours Acetaminophen 650 mg tablet extended release Discontinued 650 mg PO Q12H July 23, 2022 12:00am December 24, 2022 5:20pm Start: 05-15-2021 End: 07-23-2022 take 1 tablet by mouth every eight hours as needed for pain Acetaminophen (Tylenol Arthritis) 650 mg Tablet Extended Release Discontinued 650 mg PO Q8H as needed for Pain May 15, 2021 12:00am July 23, 2022 4:02pm amoxicillin 875 mg / clavulanate 125 mg oral tablet (2 sources) Penicillin-class Antibacterial Start: 04-05-2023 End: 08-13-2023 Amoxicillin-Pot Clavulanate 875-125 mg tablet Discontinued 1 {tbl} PO TWICE A DAY 20 April 05, 2023 1:00am August 13, 2023 1:57pm Start: 04-05-2023 take 1 tablet by marlene th twice daily Amoxicillin-Pot Clavulanate Active 1 TABLET PO TWICE A DAY April 05, 2023 1:00am benzonatate 100 mg oral capsule (2 sources) Non-narcotic Antitussive Start: 04-09-2023 End: 12-03-2023 Benzonatate 100 mg capsule Discontinued 100 mg PO 2 to 3 times per day as needed for cough 90 0 April 09, 2023 1:00am December 03, 2023 1:23pm Berberine-Herbal Comb No.18 capsule (2 sources) Start: 02-23-2023 End: 05-04-2024 take 1 capsule by mouth twice daily Berberine-Herbal Comb No.18 capsule Discontinued 1 NMA PO TWICE A DAY February 23, 2023 3:07pm May 04, 2024 4:59pm Start: 12-24-2022 End: 02-23-2023 Berberine-Herbal Comb No.18 capsule Discontinued NMA PO December 24, 2022 12:00am February 23, 2023 3:08pm meloxicam 15 mg oral tablet (13 sources) Nonsteroidal Anti-inflammatory Drug Start: 05-15-2021 End: 07-23-2022 take 1 tablet by mouth once daily Meloxicam 15 mg Tablet Discontinued 15 mg PO DAILY May 15, 2021 12:00am July 23, 2022 4:03pm 24 hr mirabegron 25 mg extended release oral tablet (2 sources) beta3-Adrenergic Agonist Start: 05-04-2024 End: 12-14-2024 take 1 tablet by mouth once daily Mirabegron 25 mg tablet extended release 24 hr Discontinued 25 mg PO daily 30 November 14, 2024 11:26am December 14, 2024 4:10pm Nirmatrelvir-Rit onavir (1 source) Start: 02-29-2024 End: 05-04-2024 Nirmatrelvir-Riton avir (Paxlovid) 300 mg (150 mg x 2)-100 mg tablets,dose pack Discontinued 0 PO .COMPLEX 30 0 February 29, 2024 1:00am May 04, 2024 4:59pm take TWO 150 mg tablets of nirmatrelvir with ONE 100 mg tablet of ritonavir twice daily for 5 days PO 24 hr oxybutynin chloride 5 mg extended release oral tablet (14 sources) Cholinergic Muscarinic Antagonist Start: 08-13-2023 End: 05-04-2024 take 1 tablet by mouth once daily as needed Oxybutynin Chloride 5 mg tablet extended release 24hr Discontinued 5 mg PO DAILY as needed for urinary incontinence 90 October 04, 2023 1:10pm May 04, 2024 4:59pm Start: 05-15-2021 End: 02-23-2023 take 1 tablet by mouth once daily Oxybutynin Chloride 5 mg Tablet Extended Release 24hr Discontinued 5 mg PO DAILY May 15, 2021 12:00am February 23, 2023 3:07pm Plexus (11 sources) Start: 09-08-2021 End: 07-23-2022 Plexus Discontinued 1 NMA SL /PO DAILY September 08, 2021 12:00am July 23, 2022 4:04pm Start: 09-08-2021 End: 07-23-2022 Plexus Discontinued 1 PACKET SL/PO DAILY September 07, 2021 11:00pm July 23, 2022 3:04pm Start: 09-08-2021 End: 07-23-2022 Plexus Discontinued 1 PACKET SL/PO DAILY September 08, 2021 12:00am July 23, 2022 4:04pm Start: 09-08-2021 Plexus Active 1 PACKET SL/PO DAILY September 07, 2021 11:00pm Start: 09-08-2021 Plexus Active 1 PACKET SL/PO DAILY September 08, 2021 12:00am Plexus Active (11 sources) Start: 09-08-2021 End: 07-23-2022 Plexus Active Discontinued 1 NMA SL/PO DAILY September 08, 2021 12:00am July 23, 2022 4:04pm Start: 09-08-2021 End: 07-23-2022 Plexus Active Discontinued [...] PACKET SL/PO DAILY September 08, 2021 12:00am Vit B Comp W/C 1 tab (1 source) Start: 05-15-2021 End: 07-23-2022 Vit B Comp W/C 1 tab Discont inued 1 {tbl} SL/PO NEEDED as needed for ILLNESS May 15, 2021 12:00am July 23, 2022 4:04pm zinc complex (6 sources) Start: 07-23-2022 End: 12-24-2022 zinc complex [...] and depressive disorder; Translations: [Anxiety disorder, unspecified] 04-05-2023 Chronic Diabetes mellitus without complication (8 sources) Type 2 diabetes mellitus; Translations: [Type 2 diabetes mellitus without complications] 08-14-2022 Chronic Diabetes mellitus without complication (5 sources) Prediabetes; Translations: [Prediabetes] 07-23-2022 Episodic Esophageal disorders (13 sources) Gastroesophageal reflux disease; Translations: [Gastro-esophageal reflux disease without esophagitis] Chronic Hemorrhoids (11 sources) Hemorrhoids; Translations: [Unspecified hemorrhoids] 08-01-2021 Episodic Immunizations and screening for infectious disease (3 sources) Encounter for immunization; Translations: [Influenza vaccination given] Onset: 12-14-2024 12-03-2023 Episodic Nutritional deficiencies (8 sources) Vitamin D deficiency; Translations: [Vitamin D deficiency, unspecified] 07-23-2022 Chronic Other and unspecified benign neoplasm (11 sources) History of polyp of colon; Translations: [Personal history of colonic polyps] 09-10-2021 Episodic Other and unspecified benign neoplasm (3 sources) Personal history of colonic polyps; Translations: [Personal history of colonic polyps] Episodic Other diseases of bladder and urethra (2 sources) Overactive bladder; Translations: [Overactive bladder] 08-13-2023 Chronic Other ear and sense organ disorders (3 sources) Hearing loss; Translations: [Unspecified hearing loss, unspecified ear] 12-24-2022 Chronic Other ear and sense organ disorders (1 source) Unspecified hearing loss, unspecified ear; Translations: [Unspecified hearing loss] 12-24-2022 Chronic Other ear and sense organ disorders (3 sources) Otalgia, left ear; Translations: [Left ear pain] 04-05-2023 Episodic Other lower respiratory disease (2 sources) Cough; Translations: [Cough] 12-17-2024 Episodic Other nutritional; endocrine; and metabolic disorders (6 sources) Body mass index 30+ - obesity; Translations: [Obesity, unspecified] 07-23-2022 Chronic Other nutritional; endocrine; and metabolic disorders (2 sources) Obesity, unspecified; Translations: [Obesity, unspecified] 07-23-2022 Chronic Other skin disorders (6 sources) Hidradenitis suppurativa; Translations: [Hidradenitis suppurativa] 07-23-2022 Episodic Other skin disorders (3 sources) Hidradenitis suppurativa; Translations: [Hidradenitis] 07-23-2022 Episodic Residual codes; unclassified (11 sources) Sleep apnea; Translations: [Sleep apnea, unspecified] 08-01-2021 Chronic Residual codes; unclassified (3 sources) Family history of malignant neoplasm of breast in first degree relative; Translations: [Family history of malignant neoplasm of breast] 02-23-2023 Episodic Comment on above: Was in her 80s when diagnosed. Pt declines genetic testing Residual codes; unclassified (2 sources) Family history of malignant neoplasm of breast; Translations: [Family history of malignant neoplasm of breast] 02-23-2023 Episodic Unclassified (1 source) Cough, unspecified; Translations: [Cough, unspecified] Onset: 12-26-2024 Past or Other Problems Problem Classification Problem Date Documented Da te Episodic/Chronic Other screening for suspected conditions (not mental disorders or infectious disease) (4 sources) Patient encounter status; Translations: [Encounter for screening for other suspected endocrine disorder] Onset: 06-27-2024 07-23-2022 Episodic Results Test Name Value Interpretation Reference Range Facility Chest PA and Lateralon 12-15 Chest PA and Lateral [facility] Imaging Services [address] [place] [address] Chest PA and Lateral MR#: [id number] Acct: [id number] Name: EDER PATE Rep #: [id number] : 1960 F 64 From: Troy Saravia MD PCP: Dr. Primo Toth MD Status: REG CLI Study: Chest PA and Lateral Date of Exam: 12/15/24 Exam# [id number] Ordering Dr: Troy Montoya PROCEDURE: CHEST PA AND LATERAL 12/15/2024 REASON FOR EXAM: COUGH TECHNIQUE: Procedure Code: RADCXR Modality: DX Procedure: CHEST PA AND LATERAL FINDINGS: The heart is normal in size. The lungs are clear. No acute osseous abnormalities. RAD/Chest PA and Lateral IMPRESSION: NO ACUTE FINDINGS. Reading Location: [address] CC: Dr. Primo Toth MD; GARRETT Torres [id number] Armor Crewman: Signed Normal [facility] Internal Medicine Office Vis luis 12-14-2024 Internal Medicine Office Visit [facility] Medicine [address] [place] [address] [place] [address] OFFICE VISIT Date of Service: 12/14/24 MR#: [id number] Acct: [id number] Name: EDER PATE Rep #: [id number] : 1960 Provider: GARRETT Torres Age/Sex: 64/F Location: [facility] Status: Signed Intake Vital Signs 05/04/24 16:01 12/14/24 16:12 Height 5 ft 3 in 5 ft 3 in Weight: 172 lb 182 lb BMI 30.4 32.2 BP 122/70 H 124/84 H Blood Pressure Location Lt brachial Lt brachial Position Sitting Sitting Respiration 16 16 Pulse 93 88 Pulse Source Monitor Monitor Temp 97.5 F L 97.9 F Temp Source Temporal Temporal Pulse Oximetry (%) 95 98 Oxygen Delivery Method room air room air Intake Visit Reasons: MED FU Chief Complaint: acute concerns Proof Coins Inspector Required: No Is patient in pain?: No Allergies No Known Allergies Allergy (Verified 12/14/24 15:52) Medications ???Medication ???Instructions ???Recorded ???Confirmed ???Type lactobacillus combination no.4 3 3,000 mmu cells PO DAILY 08/13/23 12/14/24 History billion cell capsule (Probiotic) clindamycin phosphate 1 % topical 1 applic topical QDAY #60 mL 08/2312/14/24 Rx solution bupropion HCl 150 mg 24 hr tablet, 150 mg PO QAM #60 tabs 11/14/24 12/14/24 Rx extended release apple cider vinegar 600 mg capsule mg PO TID 12/14/24 12/14/24 Hist ory buspirone 5 mg tablet 5 mg PO QDAY 12/14/24 History cholecalciferol (vitamin D3) 25 25 mcg PO BID 12/14/24 12/14/24 Hi story mcg (1,000 unit) capsule pantoprazole 40 mg tablet,delayed 40 mg PO QDAY #30 tabs 12/14/24 1 Rx release vibegron 75 mg tablet (Gemtesa) 75 mg PO QDAY #14 tabs 12/14/24 Rx Nurse's Note: Pt states that she has had a dry tickle cough since late summer. She states that she thinks when she was last seen she mentioned it/ Pt is requesting benzonate due to singing. Pt is unable to use water in cpap. Pt needs buspar refilled. Pt needing tdap due to new grandbaby and being overdue [facility] Medical History Overactive bladder Left ear pain [...] Ab spontaneous: 2 HPI HPI Chief Complaint: acute concerns Details: EDER PATE, is a 64 F who presents to the office today for this annoying dry cough. She states that she feels like it was there in the spring she thinks. She states that it seemed to get better in the summer but then she got a sinus infection and this triggered the cough more. She states that the cough is dry pretty much all the time. She states that it is a little worse first thing AM. She states that she did have a period where she had not been taking the Wellbutrin on accident and she could tell a difference. She has been taking this as directed since that little mishap and realizes how much this works for. She has been having continue issues with her urinary symptoms. She states that she has a lot of frequency / urgency and she has some urge incontinence. She was given a prescription for Myrbetriq but states that she was not able to get this due to costs. She states that she did not want to take Oxybutynin which is what they wanted to cover. Patient has never been a (more content not included)... Normal [facility] SCRN MAMM (CAD)W/GIORGIO BILATo n 06-23-2024 SCRN MAMM (CAD)W/GIORGIO BILAT [facility] Imaging Services [address] [place] [place], [place] [address] SCRN MAMM (CAD)W/GIORGIO BILAT MR#: [id number] Acct: [id number] Name: EDER PATE Rep #: [id number] : 1960 F 64 From: Sandra Shannon PCP: Dr. Primo Toth MD Status: REG CLI Study: SCRN MAMM (CAD)W/GIORGIO BILAT Date of Exam: 05/31 07/23 Exam# [id number] Ordering Dr: Kyra Romo RENOVATOR MACHINE OPERATOR RENOVATOR MACHINE OPERATOR -C EXAM: SCRN MAMM (CAD)W/GIORGIO BILAT DATE: [...] be mailed to the patient. Reading Location: [facility] CC: SABIHA Romo; Dr. Primo Toth MD M60A2 Armor Crewman: Signed Normal [facility] Internal Medicine Office Vis luis 05-04-2024 Internal Medicine Office Visit [facility] [address] [place] [address] [place] [address] OFFICE VISIT Date of Service: 05/04/24 MR#: [id number] Acct: [id number] Name: EDER PATE Rep #: [id number] : 1960 Provider: GARRETT Torres Age/Sex: 64/F Location: [facility] [place] Status: Signed Intake Vital Signs 12/03/23 13:23 [...] MED DISCUSSION Chief Complaint: MED FOLLOW UP Proof Coins Inspector Required: No Is patient in pain?: No [...] having forgetfullness from oxybutnin and dc'd it. [facility] Medical History Overactive bladder Left ear pain [...] have symptoms (more content not included)... Normal [facility] Laboratory - Microbiology an d Antimicrobial susceptibilityon 04-05-2023 S. pyogenes Ag IA Ql (Unsp spec) Negative [facility] Cervical or vagninal specime n microscopic examination by cytology stain (reported asOrdered By: Kyra Romo on 02-23-2023 Cytology report Cyto stain Doc (Cvx/Vag) Comment . [facility] Comment on above: The Pap [...] DNA Probe+sig amp Ql (Cvx) Negative Negative [facility] Comment on above: This nucleic acid am plification test detects fourteen high- risk HPV types (16,18,31,33,35,39,45,51,52,56,58,59,66,68)without differentiation. Laboratory - CytologyOrdered By: Kyra Romo on 02-23-2023 Single Stayer Operator Cyto stain Nom (Cvx/Vag) [ID] Comment . [facility] Comment on above: Ailyn Richardson, Cytot echnologist (ASCP) Laboratory - Miscellaneous t estsOrdered By: Kyra Romo on 02-23-2023 Service comment (Unsp spec) [Interp] Comment . [facility] Comment on above: This liquid based Th inPrep(R) pap test was screened withthe use of an image guided system. Service comment (Unsp spec) [Interp] . . [facility] Liquid-based cerv Pap + CT/G C by SUKHWINDER w reflex to high-risk HPV for ASCUSOrdered By: Kyra Romo on 02-23-2023 Cytology report Cyto stain.thin prep Doc (Cvx/Vag) Comment . [facility] Comment on above: Criteria not met, HP V Genotype not performed.Performed at: - [address] [id number] Director: Lilly Flynn MD, Phone: [phone] at: =[facility] [id number] Director: Lilly Flynn MD, Phone: [phone] No Panel InformationOrdered By: Kyra Romo on 02-23-2023 Pathology report final diagnosis Narrative Comment . [facility] Comment on above: NEGATIVE FOR INTRAEP ITHELIAL LESION OR MALIGNANCY. Laboratory - Hematology and Cell countson 12-24-2022 HbA1c (Bld) [Mass fraction] 6.1 % 4.2-6.3 [facility] Absolute lymphocyte countOrd ered By: Prmio Toth on 08-05-2022 Lymphocytes Auto (Unsp spec) [#/Vol] 1.29 10*3/uL 0.83-4.51 [facility] Basophil percentageOrdered B y: Primo Toth on 08-05-2022 Basophils/100 WBC (Bld) 1.4 % 0-1 [facility] Bilirubin [Mass/Vol] 0.50 mg/dL 0.20-1.00 [facility] Comment on above: For patients on eltr ombopag therapy, use of Dimension Coden TBIL is not recommended. Chloride [Moles/Vol] 110 mmol/L 98-107 [facility] Cholesterol [Mass/Vol] 192 mg/dL <200 [facility] Comment on above: <200 mg/dL Desirable 200-240 mg/dL Borderline >240 mg/dL High Risk Eosinophils/100 WBC (Bld) 3.0 % 0-5 [facility] Glucose [Mass/Vol] 143 mg/dL 74-106 [facility] Comment on above: Fasting Glucose resu lt greater than or equal to 126 mg/dL suggests DIABETES MELLITUS per A.D.A. criteria. Neutrophils (Bld) [#/Vol] 2.4 10*3/uL 2.0-7.7 [facility] Neutrophils/100 WBC (Bld) 56.0 % 47-70 [facility] Potassium [Moles/Vol] 4.1 mmol/L 3.5-5.1 [facility] Protein [Mass/Vol] 7.3 g/dL 6.4-8.2 [facility] Sodium [Moles/Vol] 141 mmol/L 136-145 [facility] Triglyceride [Mass/Vol] 192 mg/dL <199 [facility] Comment on above: The drugs N-Acetylcy steine and Metamizole may falsely depress this assay.Serum Triglycerides Reference Interval Normal <150 mg/dL Borderline high 150 - 199 mg/dL High 200 - 499 mg/dL Very High > or = 500 mg/dL WBC (Bld) [#/Vol] 4.3 10*3/uL 4.4-11.0 [facility] Blood erythrocytes count (nu mber/volume)Ordered By: Primo Toth on 08-05-2022 RBC (Bld) [#/Vol] 5.00 10*6/uL 4.2-5.4 [facility] Blood hemoglobin measurement (mass/volume)Ordered By: Primo Toth on 08-05-2022 Hemoglobin (Bld) [Mass/Vol] 15.2 g/dL 12.0-15.0 [facility] Blood lymphocytes/100 leukoc ytesOrdered By: Primo Toth on 08-05-2022 Lymphocytes/100 WBC (Bld) 29.9 % 19-41 [facility] Blood monocytes/100 leukocyt esOrdered By: Primo Toth on 08-05-2022 Monocytes/100 WBC (Bld) 9.5 % 0-10 [facility] Blood platelet mean volumeOr dered By: Primo Toth on 08-05-2022 Platelet mean volume (Bld) [Entitic vol] 11.2 fL 6.2-12.0 [facility] Determination of erythrocyte mean corpuscular volume (MCV)Ordered By: rooseveltosakisdaryl Toth on 08-05-2022 MCV (RBC) [Entitic vol] 92.2 fL 81-99 [facility] Hematocrit Auto (Bld) [Volum e fraction]Ordered By: [facility] Marklana on 08-05-2022 Hematocrit (Bld) [Volume fraction] 46.1 % 37-47 [facility] Laboratory - Chemistry and C hemistry - challengeOrdered By: [facility] Floreslana on 08-05-2022 ALP [Catalytic activity/Vol] 60 U/L 45-117 [facility] ALT [Catalytic activity/Vol] 34 U/L 13-56 [facility] CO2 [Moles/Vol] 25.0 mmol/L 21.0-32.0 [facility] Free T4 [Mass/Vol] 1.13 ng/dL 0.76-1.46 [facility] Globulin (S) [Mass/Vol] 3.5 g/dL 2.2-4.2 [facility] Urea nitrogen/Creatinine [Mass ratio] 23.3 mg/mg 10-20 [facility] Laboratory - Hematology and Cell countsOrdered By: [facility] Marklana on 08-05-2022 Erythrocyte distribution width (RBC) [Entitic vol] 41.9 fL 35.1-43.9 [facility] Erythrocyte distribution width (RBC) [Ratio] 12.4 % 11.6-14.6 [facility] Immature granulocytes/100 WBC (Bld) 0.200 % 0.0-0.9 [facility] Comment on above: IG% - Immature Granu locytes (promyelocytes, myelocytes and metamyelocytes) > 1% indicates that a LEFT SHIFT is Present. MCH (RBC) [Entitic mass] 30.4 pg 27.0-32.0 [facility] Nucleated RBC/100 WBC (Bld) [Ratio] 0 % 0-5 [facility] Auto (RBC) [Mass/Vol]Or dered By: Primo Toth on 08-05-2022 MCHC (RBC) [Mass/Vol] 33.0 g/dL 32-36 [facility] No Panel InformationOrdered By: Primo Toth on 08-05-2022 Estimated GFR (MDRD) Amer 97 mL/min >60 [facility] Comment on above: GFR Calc Estimated GFR (MDRD) Non-Af Amer 81 mL/min >60 [facility] Comment on above: Non- GFR Calc Thyroid Stimulating Hormone (TSH) 1.21 uIU/mL 0.358-3.74 [facility] Vitamin D 25-Hydroxy 49.6 ng/mL [facility] Comment on above: Vitamin D 25(OH) Sta tus Range Deficiency <20 ng/mL (50nmol/L) Insufficiency 20 - 30 ng/mL (50 - 75 nmol/L) Sufficiency 30 - 100 ng/mL (75 - 250 nmol/L) Toxicity >100 ng/mL (>250 nmol/L) Platelets bldOrdered By: Ceferino Toth on 08-05-2022 Platelets (Bld) [#/Vol] 229 10*3/uL 150-450 [facility] Serum or plasma albumin fadi urement (mass/volume)Ordered By: Primo Toth on 08-05-2022 Albumin [Mass/Vol] 3.8 g/dL 3.2-5.0 [facility] Serum or plasma albumin/glob ulin mass ratioOrdered By: Primo Toth on 08-05-2022 Albumin/Globulin [Mass ratio] 1.1 {ratio} 0.9-2.4 [facility] Serum or plasma calcium fadi urement (mass/volume)Ordered By: Primo Toth on 08-05-2022 Calcium [Mass/Vol] 8.8 mg/dL 8.5-10.1 [facility] Serum or plasma cholesterol in HDL measurement (mass/volume)Ordered By: Primo Toth on 08-05-2022 Cholesterol in HDL [Mass/Vol] 48 mg/dL >40 [facility] Comment on above: The drugs N-Acetylcy steine and Metamizole may falsely depress this assay. Reference Range HDL <40 mg/dL Low HDL Cholesterol HDL >or= 60 mg/dL High HDL Cholesterol Serum or plasma cholesterol in VLDL measurement (mass/volume)Ordered By: Primo Toth on 08-05-2022 Cholesterol in VLDL [Mass/Vol] 38 mg/dL 5-40 [facility] Serum or plasma creatinine m easurement (mass/volume)Ordered By: Primo Toth on 08-05-2022 Creatinine [Mass/Vol] 0.77 mg/dL 0.55-1.02 [facility] Comment on above: The validity of the calculated GFR & GFRAA in patients over 70 years has not been determined. Clinical correlation is essential. Serum or plasma low density lipoprotein (LDL) cholesterol measurement (mass/volume)Ordered By: Primo Toth on 08-05-2022 Cholesterol in LDL [Mass/Vol] 106 mg/dL 0-130 [facility] Serum or plasma urea nitroge n measurement (mass/volume)Ordered By: Primo Toth on 08-05-2022 Urea nitrogen [Mass/Vol] 18 mg/dL 7-18 [facility] Thin prep Papanicolaou smear with manual screeningOrdered By: Primo Toth on 08-05-2022 Thin prep Papanicolaou smear with manual screening 18 U/L 15-37 [facility] Thin prep Papanicolaou smear with manual screening 6 5-15 [facility] Whole blood hemoglobin A1c/t otal hemoglobin ratio (mass fraction)Ordered By: Primo Toth on 08-05-2022 HbA1c (Bld) [Mass fraction] 6.6 % 3.8-5.6 [facility] Comment on above: Normal < 5.7 % Predi abetic 5.7 - 6.4 % Diabetic >or= 6.5 % Please note range changes. Gel ABOon 12-30-2021 ABO/Rh Interp Positive Invalid Interpretation Code [facility] ([place]) Comment on above: Performed By: #### A NSG, ABOG #### [address] [address] Gel ABSon 12-30-2021 Antibody Screen Gel Negative Normal [facility] ([place]) Comment on above: Performed By: #### A MAURA, FEIG #### [address] [address] XR KNEE 1 OR 2 VIEWS LEFTon [...] Date: 12/30/2021 9:07:59 AM Ordering Provider: KARLO Lindsay [facility] ([place]) CT KNEE W/O CONTRAST LEFTon 12-21-2021 CT [...] 5:12:51 PM Ordering Provider: KARLO NAPOLES Normal [facility]) [place] 12-19-2021 Albumin Level 4.1 G/dL Normal 3.4-4.8 [facility]) Comment on above: Performed By: #### A LB, ANSG, ABOG #### [place] [address] Gel ABOon 12-19-2021 ABO/Rh Interp Positive Invalid Interpretation Code [facility]) Comment on above: Performed By: #### A LB, ANSG, ABOG #### [address] [address] Gel ABSon 12-19-2021 Antibody Screen Gel Negative Normal [facility]) Comment on above: Performed By: #### A LB, ANSG, ABOG #### [address] [address] LABORATORYOrdered By: Lidya Alcantara on 12-19-2021 ABO/Rh Interp Positive Invalid Interpretation Code AO BB SS Antibody Screen Gel Negative [facility] (12/19/21 12:45 PM) Invalid Interpretation Code AO BB SS LABORATORYOrdered By: Beth Leyva on 10-21-2022 Albumin BCP dye [Mass/Vol] 4.1 G/dL Invalid Interpretation Code 3.4 - 4.8 G/dL AO ADM SS Absolute lymphocyte counton 12-05-2021 Lymphocytes Auto (Unsp spec) [#/Vol] 1.73 10*3/uL 0.83-4.51 [facility] Work Phone: Basophil percentageon 2021 Basophils/100 WBC (Bld) 0.9 % 0-1 [facility] Work Phone: Chloride [Moles/Vol] 109 mmol/L 98-107 [facility] Work Phone: [phone] Eosinophils/100 WBC (Bld) 1.6 % 0-5 [facility] Work Phone: [phone] Glucose [Mass/Vol] 109 mg/dL 74-106 [facility] Work Phone: [phone] Comment on above: Fasting Glucose resu lt from 100 to 125 mg/dL suggests IMPAIRED HOMEOSTASIS per A.D.A. criteria. Neutrophils (Bld) [#/Vol] 3.2 10*3/uL 2.0-7.7 [facility] Work Phone: [phone] Neutrophils/100 WBC (Bld) 57.6 % 47-70 [facility] Work Phone: [phone] Potassium [Moles/Vol] 3.8 mmol/L 3.5-5.1 [facility] Work Phone: [phone] Sodium [Moles/Vol] 143 mmol/L 136-145 [facility] Work Phone: [phone] WBC (Bld) [#/Vol] 5.6 10*3/uL 4.4-11.0 [facility] Work Phone: [phone] Blood erythrocytes count (nu mber/volume)on 12-05-2021 RBC (Bld) [#/Vol] 4.86 10*6/uL 4.2-5.4 [facility]: [phone] Blood hemoglobin measurement (mass/volume)on 12-05-2021 Hemoglobin (Bld) [Mass/Vol] 15.4 g/dL 12.0-15.0 [facility] Work Phone: Blood lymphocytes/100 leukoc yteson 12-05-2021 Lymphocytes/100 WBC (Bld) 30.9 % 19-41 [facility] Work Phone: Blood monocytes/100 leukocyt eson 12-05-2021 Monocytes/100 WBC (Bld) 8.8 % 0-10 [facility] Work Phone: Blood platelet mean volumeon 12-05-2021 Platelet mean volume (Bld) [Entitic vol] 11.0 fL 6.2-12.0 [facility] Work Phone: Determination of erythrocyte mean corpuscular volume (MCV)on 12-05-2021 MCV (RBC) [Entitic vol] 93.8 fL 81-99 [facility] Work Phone: Hematocrit Auto (Bld) [Volum e fraction]on 12-05-2021 Hematocrit (Bld) [Volume fraction] 45.6 % 37-47 [facility] Work Phone: Laboratory - Chemistry and C hemistry - challengeon 12-05-2021 CO2 [Moles/Vol] 26.0 mmol/L 21.0-32.0 [facility] Work Phone: Urea nitrogen/Creatinine [Mass ratio] 25.4 mg/mg 10-20 [facility] Work Phone: Laboratory - Hematology and Cell countson 12-05-2021 Erythrocyte distribution width (RBC) [Entitic vol] 43.8 fL 35.1-43.9 [facility] Work Phone: Erythrocyte distribution width (RBC) [Ratio] 12.6 % 11.6-14.6 [facility] Work Phone: Immature granulocytes/100 WBC (Bld) 0.200 % 0.0-0.9 [facility] Work Phone: Comment on above: IG% - Immature Granu locytes (promyelocytes, myelocytes and metamyelocytes) > 1% indicates that a LEFT SHIFT is Present. MCH (RBC) [Entitic mass] 31.7 pg 27.0-32.0 [facility] Work Phone: Nucleated RBC/100 WBC (Bld) [Ratio] 0 % 0-5 [facility] Work Phone: MCHC Auto (RBC) [Mass/Vol]on 12-05-2021 MCHC (RBC) [Mass/Vol] 33.8 g/dL 32-36 [facility] Work Phone: No Panel Informationon 12-05 Estimated GFR (MDRD) Amer 96 mL/min >60 [facility] Work Phone: Comment on above: GFR Calc Estimated GFR (MDRD) Non-Af Amer 79 mL/min >60 [facility] Work Phone: Comment on above: Non- GFR Calc Platelets bldon 12-05-2021 Platelets (Bld) [#/Vol] 238 10*3/uL 150-450 [facility] Work Phone: Serum or plasma calcium fadi urement (mass/volume)on 12-05-2021 Calcium [Mass/Vol] 9.8 mg/dL 8.5-10.1 [facility] Work Phone: Serum or plasma creatinine m easurement (mass/volume)on 12-05-2021 Creatinine [Mass/Vol] 0.79 mg/dL 0.55-1.02 [facility] Work Phone: Comment on above: The validity of the calculated GFR & GFRAA in patients over 70 years has not been determined. Clinical correlation is essential. Serum or plasma urea nitroge n measurement (mass/volume)on 12-05-2021 Urea nitrogen [Mass/Vol] 20 mg/dL 7-18 [facility] Work Phone: Thin prep Papanicolaou smear with manual screeningon 12-05-2021 Thin prep Papanicolaou smear with manual screening 8 5-15 [facility] Work Phone: Basophil percentageon 2021 Chloride [Moles/Vol] 109 mmol/L 98-107 [facility] Work Phone: Glucose [Mass/Vol] 127 mg/dL 74-106 [facility] Work Phone: Comment on above: Fasting Glucose resu lt greater than or equal to 126 mg/dL suggests DIABETES MELLITUS per A.D.A. criteria. Potassium [Moles/Vol] 4.0 mmol/L 3.5-5.1 [facility] Work Phone: Sodium [Moles/Vol] 140 mmol/L 136-145 [facility] Work Phone: WBC (Bld) [#/Vol] 5.1 10*3/uL 4.4-11.0 [facility] Work Phone: Blood erythrocytes count (nu mber/volume)on 04-24-2021 RBC (Bld) [#/Vol] 4.94 10*6/uL 4.2-5.4 [facility] Work Phone: Blood hemoglobin measurement (mass/volume)on 04-24-2021 Hemoglobin (Bld) [Mass/Vol] 15.6 g/dL 12.0-15.0 [facility] Work Phone: Blood platelet mean volumeon 04-24-2021 Platelet mean volume (Bld) [Entitic vol] 11.6 fL 6.2-12.0 [facility] Work Phone: Determination of erythrocyte mean corpuscular volume (MCV)on 04-24-2021 MCV (RBC) [Entitic vol] 92.1 fL 81-99 [facility] Work Phone: Erythrocyte sedimentation ra kimberly 04-24-2021 ESR (Bld) [Velocity] 17 mm/h 0-30 [facility] Work Phone: Hematocrit Auto (Bld) [Volum e fraction]on 04-24-2021 Hematocrit (Bld) [Volume fraction] 45.5 % 37-47 [facility] Work Phone: Laboratory - Chemistry and C hemistry - challengeon 04-24-2021 CO2 [Moles/Vol] 28.0 mmol/L 21.0-32.0 [facility] Work Phone: Urea nitrogen/Creatinine [Mass ratio] 19.0 mg/mg 10-20 [facility] Work Phone: Laboratory - Hematology and Cell countson 04-24-2021 Erythrocyte distribution width (RBC) [Entitic vol] 41.8 fL 35.1-43.9 [facility] Work Phone: Erythrocyte distribution width (RBC) [Ratio] 12.4 % 11.6-14.6 [facility] Work Phone: MCH (RBC) [Entitic mass] 31.6 pg 27.0-32.0 [facility] Work Phone: MCHC Auto (RBC) [Mass/Vol]on 04-24-2021 MCHC (RBC) [Mass/Vol] 34.3 g/dL 32-36 [facility] Work Phone: No Panel Informationon 04-24 Anti-Nuclear Antibody Screen Negative Negative [facility] Work Phone: Comment on above: Performed at: [address] [id number] Director: Cristobal Gates PhD, Phone: [phone] Estimated GFR (MDRD) Amer 112 mL/min >60 [facility] Work Phone: Comment on above: GFR Calc Estimated GFR (MDRD) Non-Af Amer 93 mL/min >60 [facility] Work Phone: Comment on above: Non- GFR Calc Thyroid Stimulating Hormone (TSH) 2.70 uIU/mL 0.358-3.74 [facility] Work Phone: Vitamin D 25-Hydroxy 34.1 ng/mL [facility] Work Phone: Comment on above: Vitamin D 25(OH) Sta tus Range Deficiency <20 ng/mL (50nmol/L) Insufficiency 20 - 30 ng/mL (50 - 75 nmol/L) Sufficiency 30 - 100 ng/mL (75 - 250 nmol/L) Toxicity >100 ng/mL (>250 nmol/L) Platelets bldon 04-24-2021 Platelets (Bld) [#/Vol] 204 10*3/uL 150-450 [facility] Work Phone: Serum or plasma calcium fadi urement (mass/volume)on 04-24-2021 Calcium [Mass/Vol] 8.9 mg/dL 8.5-10.1 [facility] Work Phone: Serum or plasma creatinine m easurement (mass/volume)on 04-24-2021 Creatinine [Mass/Vol] 0.68 mg/dL 0.55-1.02 [facility] Work Phone: Comment on above: The validity of the calculated GFR & GFRAA in patients over 70 years has not been determined. Clinical correlation is essential. Serum or plasma urea nitroge n measurement (mass/volume)on 04-24-2021 Urea nitrogen [Mass/Vol] 13 mg/dL 7-18 [facility] Work Phone: Thin prep Papanicolaou smear with manual screeningon 04-24-2021 Thin prep Papanicolaou smear with manual screening 3 5-15 [facility] Work Phone: Vital Signs Date Time Vital Sign Value Performing Clinician Faci lity 12-14-2024 16:12-0400 Body height 160.[address] Primo Toth MD Work Phone: [facility] 12-14-2024 16:12-0400 Body mass index (BMI) [Ratio] 32.2 kg/m2 Dr. Primo Toth MD Work Phone: [facility] 12-14-2024 16:12-0400 Body temperature 97.9 [degF] Dr. Primo Toth MD Work Phone: [facility] 12-14-2024 16:12-0400 Body weight 82.[address] Primo Toth MD Work Phone: [facility] 12-14-2024 16:12-0400 Diastolic blood pressure 84 mm[Hg] Dr. Primo Toth MD Work Phone: [facility] 12-14-2024 16:12-0400 Heart rate 88 /min Dr. Primo Toth MD Work Phone: [facility] 12-14-2024 16:12-0400 Respiratory rate 16 /min Dr. Primo Toth MD Work Phone: [facility] 12-14-2024 16:12-0400 SaO2% (BldA) [Mass fraction] 98 % Dr. Primo Toth MD Work Phone: [facility] 12-14-2024 16:12-0400 Systolic blood pressure 124 mm[Hg] Dr. Primo Toth MD Work Phone: [facility] 04-05-2023 14:32-0500 Body height 160.[address] Primo Toth Work Phone: [facility] 04-05-2023 14:32-0500 Body mass index (BMI) [Ratio] 30.8 kg/m2 Dr. Primo Toth Work Phone: [facility] 04-05-2023 14:32-0500 Body temperature 98.3 [degF] Dr. Primo Toth Work Phone: [facility] 04-05-2023 14:32-0500 Body weight 78.[address] Primo Toth Work Phone: [facility] 04-05-2023 14:32-0500 Diastolic blood pressure 80 mm[Hg] Dr. Primo Toth Work Phone: [facility] 04-05-2023 14:32-0500 Heart rate 98 /min Dr. Primo Toth Work Phone: [facility] 04-05-2023 14:32-0500 Respiratory rate 14 /min Dr. Primo Toth Work Phone: [facility] 04-05-2023 14:32-0500 SaO2% (BldA) [Mass fraction] 95 % Dr. Primo Toth Work Phone: [facility] 04-05-2023 14:32-0500 Systolic blood pressure 112 mm[Hg] Dr. Primo Toth Work Phone: [facility] 02-23-2023 14:09-0500 Body height 160.[address] Primo Toth Work Phone: [facility] 02-23-2023 14:06-0500 Body mass index (BMI) [Ratio] 30.9 kg/m2 Dr. Primo Toth Work Phone: [facility] 02-23-2023 14:06-0500 Body weight 79.[address] Primo Toth Work Phone: [facility] 02-23-2023 14:06-0500 Diastolic blood pressure 84 mm[Hg] Dr. Primo Toth Work Phone: [facility] 02-23-2023 14:06-0500 Systolic blood pressure 129 mm[Hg] Dr. Primo Toth Work Phone: [facility] 12-24-2022 17:21-0400 Body mass index (BMI) [Ratio] 31.3 kg/m2 Dr. Primo Toth Work Phone: [facility] 12-24-2022 17:21-0400 Body temperature 98.4 [degF] Dr. Primo Toth Work Phone: [facility] 12-24-2022 17:21-0400 Body weight 80.[address] Primo Toth Work Phone: [facility] 12-24-2022 17:21-0400 Diastolic blood pressure 78 mm[Hg] Dr. Primo Toth Work Phone: [facility] 12-24-2022 17:21-0400 Heart rate 78 /min Dr. Primo Toth Work Phone: [facility] 12-24-2022 17:21-0400 Respiratory rate 16 /min Dr. Primo Toth Work Phone: [facility] 12-24-2022 17:21-0400 SaO2% (BldA) [Mass fraction] 94 % Dr. Primo Toth Work Phone: [facility] 12-24-2022 17:21-0400 Systolic blood pressure 124 mm[Hg] Dr. Primo Toth Work Phone: [facility] 11-19-2022 07:30-0400 Body height 160.[address] Primo Toth Work Phone: [facility] 11-19-2022 07:30-0400 Body weight 81.[address] Primo Toth Work Phone: [facility] 09-17-2022 15:00-0400 Body height 160.[address] Jaret Turcios Work Phone: [facility] 09-17-2022 15:00-0400 Body weight [address] Jaret Turcios Work Phone: [facility] 07-23-2022 16:05-0400 Body mass index (BMI) [Ratio] 33.6 kg/m2 Dr. Jaret Turcios Work Phone: [facility] 07-23-2022 16:05-0400 Body temperature 98.1 [degF] Dr. Jaret Turcios Work Phone: [facility] 07-23-2022 16:05-0400 Body weight 86.[address] Jaret Turcios Work Phone: [facility] 07-23-2022 16:05-0400 Diastolic blood pressure 80 mm[Hg] Dr. Jaret Turcios Work Phone: [facility] 07-23-2022 16:05-0400 Heart rate 87 /min Dr. Jaret Turcios Work Phone: [facility] 07-23-2022 16:05-0400 Respiratory rate 14 /min Dr. Jaret Turcios Work Phone: [facility] 07-23-2022 16:05-0400 SaO2% (BldA) [Mass fraction] 99 % Dr. Jaret Turcios Work Phone: [facility] 07-23-2022 16:05-0400 Systolic blood pressure 128 mm[Hg] Dr. Jaret Turcios Work Phone: [facility] 12-19-2021 12:15-0400 Body height [address] KARLO NAPOLES MD [facility] 12-19-2021 12:15-0400 Body weight 83.[address] KARLO NAPOLES MD [facility] 12-19-2021 12:15-0400 Body weight 33.41 kg/m2 DR KARLO NAPOLES MD [facility] 12-19-2021 12:15-0400 diastolic 74 mm[Hg] DR KARLO NAPOLES MD [facility] 12-19-2021 12:15-0400 Heart rate 84 /min DR KARLO NAPOLES MD [facility] 12-19-2021 12:15-0400 Respiratory rate 20 /min DR KARLO NAPOLES MD [facility] 12-19-2021 12:15-0400 systolic 122 mm[Hg] DR KARLO NAPOLES MD [facility] 09-10-2021 09:30-0400 Body temperature 97.3 [degF] Dr. Jaret Turcios Work Phone: [facility] Work Phone: 09-10-2021 09:30-0400 Diastolic blood pressure 67 mm[Hg] Dr. Jaret Turcios Work Phone: [facility] Work Phone: 09-10-2021 09:30-0400 Heart rate 70 /min Dr. Jaret Turcios Work Phone: [facility] Work Phone: 09-10-2021 09:30-0400 Respiratory rate 18 /min Dr. Jaret Turcios Work Phone: [facility] Work Phone: 09-10-2021 09:30-0400 SaO2% (BldA) [Mass fraction] 94 % Dr. Jaret Turcios Work Phone: [facility] Work Phone: 09-10-2021 09:30-0400 Systolic blood pressure 110 mm[Hg] Dr. Jaret Turcios Work Phone: [facility] Work Phone: 09-10-2021 07:57-0400 Body height 160.[address] Jaret Turcios Work Phone: [facility] Work Phone: 09-10-2021 07:57-0400 Body mass index (BMI) [Ratio] 32.1 kg/m2 Dr. Jaret Turcios Work Phone: [facility] Work Phone: 09-10-2021 07:57-0400 Body weight 82.[address] Jaret Turcios Work Phone: [facility] Work Phone: 08-01-2021 14:18-0400 Body mass index (BMI) [Ratio] 33.3 kg/m2 Dr. Jaret Turcios Work Phone: [facility] Work Phone: 08-01-2021 14:18-0400 Body temperature 97.9 [degF] Dr. Jaret Turcios Work Phone: [facility] Work Phone: 08-01-2021 14:18-0400 Body weight 85.[address] Jaret Turcios Work Phone: [facility] Work Phone: 08-01-2021 14:18-0400 Diastolic blood pressure 77 mm[Hg] Dr. Jaret Turcios Work Phone: [facility] Work Phone: 08-01-2021 14:18-0400 Heart rate 94 /min Dr. Jaret Turcios Work Phone: [facility] Work Phone: 08-01-2021 14:18-0400 Respiratory rate 17 /min Dr. Jaret Turcios Work Phone: [facility] Work Phone: 08-01-2021 14:18-0400 SaO2% (BldA) [Mass fraction] 97 % Dr. Jaret Turcios Work Phone: [facility] Work Phone: 08-01-2021 14:18-0400 Systolic blood pressure 117 mm[Hg] Dr. Jaret Turcios Work Phone: [facility] Work Phone: Encounters Encounter Date Encounter Type Care Provider Facility Start: 12-15-2024 End: 12-15-2024 Patient encounter procedure Troy VASQUEZ -[facility] [place] Work Phone: Start: 12-14-2024 End: 12-14-2024 Patient encounter procedure Troy VASQUEZ -[facility] Work Phone: Start: 12-14-2024 End: 12-15-2024 ambulatory Primo Toth Facility:[facility] Start: 06-23-2024 End: 06-23-2024 ambulatory Kyra Romo GUERO Facility:[facility] Start: 05-04-2024 End: 05-04-2024 ambulatory Primo Toth Facility:[facility] Start: 05-28-2023 End: 05-28-[address] Primo Toth Work Phone: [facility] Work Phone: Start: 05-28-2023 End: 05-28-[address] Primo Toth Work Phone: [facility]-Outpatient Breast Imaging Work Phone: Start: 04-05-2023 End: 04-05-[address] Primo Toth Work Phone: [facility] Work Phone: Start: 02-23-2023 End: 02-23-[address] Primo Toth Work Phone: [facility] Work Phone: Start: 02-23-2023 End: 02-23-[address] Primo Toth Work Phone: [facility]-Laboratory, Specimen Work Phone: Start: 02-23-2023 End: 02-23-[address] Primo Toth Work Phone: [facility] Work Phone: Start: 12-24-2022 End: 12-24-[address] Primo Toth Work Phone: [facility] Work Phone: Start: 11-19-2022 End: 11-28-[address] Primo Toth Work Phone: [facility] Work Phone: Start: 11-19-2022 End: 11-28-[address] Primo Toth Work Phone: [facility] Work Phone: Start: 09-28-2022 End: 09-28-[address] Jaret Turcios Work Phone: [facility] Work Phone: Start: 09-28-2022 End: 09-28-[address] [facility] Start: 09-21-2022 End: 09-28-[address] [facility] Start: 09-17-2022 End: 09-28-[address] Jaret Turcios Work Phone: [facility] Work Phone: Start: 09-17-2022 End: 09-28-[address] [facility] Start: 09-17-[address] [facility] Start: 08-18-2022 End: 08-18-[address] [facility] Work [facility]: Start: 08-14-2022 Non-patient / Non-visit Dr. Garrett Turcios Work Phone: [facility] Start: 08-05-2022 End: 08-05-[address] Jaret Turcios Work Phone: [facility] Work Phone: Start: 07-23-[address] Josemanuel Turcios Work Phone: [facility] Start: 07-23-2022 End: 07-23-[address] Jaret Turcios Work Phone: [facility] Work Phone: Start: 05-12-2022 End: 05-12-2022 ambulatory [facility] Work Phone: Start: 05-12-2022 End: 05-12-2022 Patient encounter procedure [facility]Outpatient [facility] Start: 12-30-2021 End: 12-30-[address] JARET TURCIOS MD. Facility:[facility] Start: 12-19-2021 End: 12-20-2021 ambulatory KARLO NAPOLES MD Facility:[facility] Start: 12-19-2021 End: 12-19-[address] KARLO NAPOLES MD [facility] Start: 12-05-2021 End: 12-05-[address] Jaret Turcios Work Phone: [facility] Work Phone: Start: 12-05-2021 End: 12-05-[address] Jaret Turcios Work Phone: [facility] Start: 09-23-[address] Jaret Turcios Work Phone: [facility]-Physical Therapy Start: 09-11-2021 End: 09-11-[address] Jaret Turcios [facility] Start: 09-10-2021 Non-patient / Non-visit Dr. Garrett Turcios Work Phone: [facility] Start: 09-10-2021 End: 09-10-2021 Admission to same day surgery center Dr. Jaret Turcios Work Phone: [facility]-Endoscopy Start: 08-01-2021 End: 08-01-[address] Jaret Turcios Work Phone: [facility] Start: 05-15-2021 Non-patient / Non-visit Dr. Garrett Turcios Work Phone: [facility] Start: 05-15-2021 End: 05-15-[address] Jaret Turcios Work Phone: [facility] Start: 04-24-2021 End: 04-24-[address] Jaret Turcios [facility] Start: 04-23-2021 End: 04-23-[address] Jaret Turcios Work Phone[facility] Start: 03-20-2021 End: 03-20-[address] Jaret Turcios Work Phone: [facility]Outpatient Breast Imaging Start: 02-06-2021 End: 02-06-[address] Jaret Turcios Work Phone: [facility]Physical Therapy Procedures Date Procedure Procedure Detail Performing Clinician Start: 12-15-2024 Radiologic exam ches t [address] Primo Toth MD Work Phone: Start: 05-28-2023 Screening mammography Maggie Toth Work [...] on above: x2 Ligation of fallopian tube Maggie NAPOLES MD Tonsillectomy DR KARLO DALLAS MD Plan of Treatment Date Care Activity Detail Author Start: 08-14-2022 Patient referral [facility] Work Phone: Start: 07-23-2022 Patient referral [facility] Work Phone: Start: 09-10-2021 Colonoscopy flx dx w/collj spec when pfrmd DIAGNOSTIC COLONOSCOPY [facility] Work Phone: Start: 09-10-2021 Patient discharge [facility] Work Phone: MG Breast - bilatera l Screening [facility] Patient referral [facility] Work Phone: Immunizations Immunization Date Immunization Notes Care Provider [facility] 12-14-2024 influenza, injectabl e, madin manuela canine kidney, preservative free Dr. Primo Toth MD Work Phone: [facility] 12-14-2024 tetanus toxoid, redu abida diphtheria toxoid, and acellular pertussis vaccine, adsorbed Dr. Primo Toth MD Work Phone: [facility] 12-03-2023 influenza, injectabl e, madin manuela canine kidney, preservative free Dr. Primo Toth MD Work Phone: [facility] 12-18-2022 influenza, injectabl e, quadrivalent, preservative free Dr. Primo Toth Work Phone: [facility] 05-24-2020 COVID-19, mRNA, LNP- S, PF, 100 mcg or 50 mcg dose; Translations: [Moderna COVID-19 Vaccine] DR KARLO NAPOLES MD [facility] 04-27-2020 COVID-19, mRNA, LNP- S, PF, 100 mcg or 50 mcg dose; Translations: [Moderna COVID-19 Vaccine] DR KARLO NAPOLES MD [facility] Payers Date Payer Category Payer Unknown [id number] 2024 Self-pay [id number] 2024 Unknown [id number] 2021 Unknown [id number] 1960 Unknown [id number] 1960 Unknown [id number] Self-pay SELF PAY BY PATIENT REQUEST [id number] 1965 Unknown [id number] Unknown [id number] Unknown [id number] Unknown [id number] Unknown [id number] Social History Date Type Detail Facility Tobacco smoking stat us NHIS Unknown if ever smoked [facility] Work Phone: Start: 1960 Sex Assigned At Female A [facility] Start: 09-10-2021 End: 04-05-2023 Tobacco smoking status NHIS Unknown if ever smoked [facility] Start: 12-19-2021 End: 04-05-2023 Tobacco smoking status Never smoked tobacco (finding) [facility] Sex Female [facility] Goals Date Patient Goal Desired Activity /State Functional Status Date Assessment Result Facility 12-19-2021 Functional Status Sensory Defici ts Hearing deficit, left ear, Hearing deficit, right ear [facility] Mental Status Date Assessment Result Facility 09-10-2021 Cognitive function Voice/Name [facility] Work Phone: Clinical Notes 02-23-2023 to 12-14-2024 Note Date & Type Note Facility 12-14-2024 Progress note [facility] 12-14-2024 Progress note Note Date/Time December 14, 2024 4:51pm [facility] Internal Medicine [address] [place] [address] [place] [address] OFFICE VISIT Date of Service: 12/14/24 MR#: [id number] Acct: [id number] Name: EDER PATE Rep #: [id number] : 1960 Provider: GARRETT Torres Age/Sex: 64/F Location: [facility] Status: Signed Intake Vital Signs 05/04/24 16:01 12/14/24 16:12 Height 5 ft 3 in 5 ft 3 in Weight: 172 lb 182 lb BMI 30.4 32.2 BP 122/70 H 124/84 H Blood Pressure Location Lt brachial Lt brachial Position Sitting Sitting Respiration 16 16 Pulse 93 88 Pulse Source Monitor Monitor Temp 97.5 F L 97.9 F Temp Source Temporal Temporal Pulse Oximetry (%) 95 98 Oxygen Delivery Method room air room air Intake Visit Reasons: MED FU Chief Complaint: acute concerns Proof Coins Inspector Required: No Is patient in pain?: No Allergies No Known Allergies Allergy (Verified 12/14/24 15:52) Medications ?Medication ?Instructions ?Recorded ?Confirmed ?Type lactobacillus combination no.4 3 3,000 mmu cells PO DA SUSANNA 08/13/23 12/14/24 History billion cell capsule (Probiotic) clindamycin phosphate 1 % topical 1 applic topical QDA Y #60 mL 05/04/24 12/14/24 Rx solution bupropion HCl 150 mg 24 hr tablet, 150 mg PO QAM #60 t abs 11/14/24 12/14/24 Rx extended release apple cider vinegar 600 mg capsule mg PO TID 12/14/24 12/14/24 History buspirone 5 mg tablet 5 mg PO QDAY 12/14/24 Histo ry cholecalciferol (vitamin D3) 25 25 mcg PO BID 12/14/24 12/14/24 History mcg (1,000 unit) capsule pantoprazole 40 mg tablet,delayed 40 mg PO QDAY #30 ta bs 12/14/24 12/14/24 Rx release vibegron 75 mg tablet (Gemtesa) 75 mg PO QDAY #14 tabs 12/14/24 12/14/24 Rx Nurse's Note: Pt states that she has had a dry tickle cough since late summer. She states thatshe thinks when she was last seen she mentioned it/ Pt is requesting benzonate due to singing. Pt is unable to use water in cpap. Pt needs buspar refilled. Pt needing tdap due to new grandbaby and being overdue [facility] Medical History Overactive bladder Left ear pain [...] cardiac catheterization Hx of colonoscopy History of D&C History of tonsillectomy History of cholecystectomy Family [...] Ab spontaneous: 2 HPI HPI Chief Complaint: acute concerns Details: EDER PATE, is a 64 F who presents to the office today for this annoying dry cough. She states that she feels like it was there in the spring she thinks. Shestates that it seemed to get better in the summer but then she got a sinus infection and this triggered the cough more. She states that the cough is dry pretty much all the time. She states that it is a little worse first thing AM. She states that she did have a period where she had not been taking the Wellbutrin on accident and she could tell a difference. She has been taking thisas directed since that little mishap and realizes how much this works for. She has been having continue issues with her urinary symptoms. She states that she has a lot of frequency / urgency and she has some urge incontinence. She was given a prescription for Myrbetriq but states that she was not able to get this due to costs. She states that she did not want to take Oxybutynin whichis what they wanted to cover. Patient has never been a smoker She does live in an older house that has boiler heat and so she is always concerns with allergens in the air. She denies any history of asthma or other respiratory issues. ROS Const Constitutional: No body ache, chills, excessive sweating, fatigue, fever(s), frequent falls, headache(s), snoring, weakness, sleep problems or change in appetite Eyes Eyes: No blurry vision, change in vision, eye pain or Light sensitivity ENT ENT: No abnormal hearing, ear or mastoid pain, tinnitus, nasal congestion, headache(s), neck pain or sore throat Resp Respiratory: No cough, shortness of breath, snoring or wheezing Cardio Cardiology: No chest pain at rest, chest pain with exertion, excessive sweating,shortness of breath, dyspnea on exertion, lightheadedness, orthopnea or palpitations Gastro GI: No abdominal pain, change in bowel habits, constipation, cramping, diarrhea,nausea/dyspepsia or vomiting Genitourinary-Female: No burning urination, painful urination, urinary incontinence, urinary frequency, abnormal vaginal bleeding or pelvic pain Musc Musculoskeletal: No abnormal gait, joint pain, back pain, limited range of motion, neck pain or numbness Skin Skin: No dry skin, redness, lesions, itchy eyes, rash or wounds Neuro Neurology: No abnormal gait, abnormal hearing, weakness, frequent falls, headache(s), memory loss or numbness Psych Psychiatric: No anxiety, No change in appetite, No depression, No memory loss and No Thoughts of harming yourself/Others Endo Endocrine: No cold intolerance, excessive sweating, fatigue, flushing, heat intolerance, increased thirst/drinking or increased hunger Aller/Imm Allergy/Immunologic: No itchy eyes, seasonal allergy symptoms, hives or wheezing Oh/Lymp Hematologic/Lymphatic: No easy bleeding, easy bruising, enlarged lymph nodes or other Exam Const General: cooperative, healthy appearing, comfortable and no acute distress Nutritional Appearance: average body habitus Orientation: alert, awake and oriented x3 [facility] Ears: hearing grossly normal bilaterally Neck Neck mass: No Resp Effort & Inspection: normal respiratory effort, able to speak in complete sentences, symmetric chest movement, normal respiratory pattern, no audible wheezes and cough Quality of cough: dry Auscultation: Bilateral: Clear to Auscultation Cardio Rate: regular rate Rhythm: regular rhythm Heart Sounds: S1 normal, S2 normal and no murmurs Pulses: radial pulses present bilaterally 2+ Neuro General: patient alert, patient awake, patient oriented x3 and gait normal Cognition: normal cognition Speech: speech normal Gait: normal gait Psych Appearance: grossly normal Mental Status: mental status grossly normal Mood: congruent mood Affect: normal affect Attitude: cooperative Immunizations Flucelvax 2408-5613 (PF) 45 mcg (15 mcg x 3)/0.5 mL IM syringe Performing Provider: GARRETT Richardson Performing Location: [facility] Administered by: Darlene Gore on 12/14/24 16:57 Dose Route Admin Location Dispensed Lot Number Expiration Date Pack age [facility] [place] [employer] 0.5 mL IM Left Arm (SQ) 0.5 mL [id number] 06/26/25 [id number] [email or web address]. VIS Given Date VIS Provided VIS Publication Date 12/14/24 Single Vaccine 24 Eligibility Eligibility Date Funding Source Not Applicable Administration Comments: cristal injection given patient tolerated well Boostrix Tdap 2.5 Lf unit-8 mcg-5 Lf/0.5 mL intramuscular syringe Performing Provider: GARRETT Richardson Performing Location: [facility] Administered by: Darlene Gore on 12/14/24 16:58 Dose Route Admin Location Dispensed Lot Number Expiration Date Pack age [facility] [place] [employer] 0.5 mL IM Left Arm (SQ) 0.5 mL [id number] 05/30/25 [id number] [employer] VIS Given Date VIS Provided VIS Publication Date 12/14/24 Single Vaccine 24 Eligibility Eligibility Date Funding Source Not Applicable Administration Comments: INJECTION GIVEN PATIENT TOLERATED WELL Coding Level of Care Code Off vis,est,level 3 Diagnoses Chronic cough R05.3 Cough type: chronic Overactive bladder N32.81 Influenza vaccine administered Z23 Type 2 diabetes mellitus without complication, without long-term current use of insulin E11.9 Diabetes mellitus alf insulin use: without alf use Diabetes mellitus complication status: without complication Assessment and Plan Assessment and Plan (1) Cough: Status: Acute Qualifiers: Cough type: chronic Qualified Code(s): R05.3 - Chronic cough Plan: Patient presents the office today for what she describes as an annoying dry cough. Patient states that she think she had this in the spring and then it seemed to get better over the summer and then has been going on over the past month. Again she states is a very dry cough with no production. Cough is noticeably worse first thing in the morning but states that she does get this periodically during the day as well. She has not noticed an obvious trigger. We did discuss causes of chronic cough including allergies, asthma, even esophageal reflux disease. I do think that with persistence that we get a chestx-ray. She does have some concerns with allergies and she does have a history of reflux. I think that getting the x-ray and starting addressing these underlying issues is a good first step. Discussed that if there is no improvement with these then consider further imaging and/evaluation. (2) Overactive bladder: Status: Chronic Plan: Patient again has had a long history of overactive bladder. She was given prescriptions previously for Myrbetriq but states that she was not able to get these. She did not want to take the alternatives that was oxybutynin due to concerns for side effects and complications. At this time she states she continues to have symptoms and would like to try other medications. I was able to get some samples of Gemtesa for her. Discussed that if these are effective for her then we will see about getting this prescription approved. She has had discussions in the past about seeing BILL RECAPITULATION CLERK and I would agree that seeing urogynecology is definitely appropriate. Patient states she would like to try the medications first (3) Influenza vaccine administered: Status: Acute Plan: Patient would like to have her immunization/flu shot today. (4) Type 2 diabetes mellitus: Status: Chronic Qualifiers: Diabetes mellitus extermination inspector insulin use: without extermination inspector use Diabetesmellitus complication status: without complication Qualified Code(s): E11.9 - Type 2 diabetes mellitus without complications Plan: Patient is due to have A1c as well as other lab work done. Discussed that this is definitely something that she needs to follow-up with and have an appointmentspecifically for this. We are going to be rechecking patient anyhow for the cough as well as the overactive bladder. Orders: Orders Influenza Immunization 12/14/24 Z23 - Encounter for immunization Tdap Immunization 12/14/24 Z23 - Encounter for immunization Chest PA and Lateral 12/15/24 R05.9 - Cough, unspecified Medications: New pantoprazole 40 mg PO QDAY 30 tabs 2RF vibegron (Gemtesa) 75 mg PO QDAY 14 tabs 0RF Plan Details Follow Up: 3 Weeks 12/17/24 6021 <Electronically signed by Troy VASQUEZ> Date _ Troy Bennett Signature: Date (if applicable) CC: ~ [facility] Work Phone: [phone] NotePap Smear Specimen AdequacyDecember 2022 4:07pmComment.Satisfactory for evaluation. No endocervical component is identified.[facility] A#[id number] County HospitalComment on above:Satisfactory for evaluation. No endocervical component is identified. 02-23-2023 NotePap Smear Specimen AdequacyDecember 2022 5:07pmComment. Satisfactory for evaluation. No endocervical component is identified.[facility] A#[id number] County HospitalComment on above:Satisfactory for evaluation. No endocervical component is identified.Evaluation + Plan note Future Appointments [facility] Evaluation noteNo assessment information available [facility] Work Phone: Evaluation note* Diagnosis Onset Date Resolution Status Acid reflux acute Hx of colonic polyp acute [facility] Work Phone: Evaluation note* Diagnosis Onset Date Resolution Status Hx of colonic polyp acute [facility] Work Phone: Evaluation note* Diagnosis Onset Date Resolution Status Borderline type 2 diabetes mellitus chronic Hidradenitis suppurativa chr onic Obesity (BMI 30-39.9) chroni c Vitamin D deficiency chronic [facility] Work Phone: Evaluation note* Diagnosis Onset Date Resolution Status Hearing impairment chronic Hidradenitis suppurativa chr onic Type 2 diabetes mellitus chr onic Family history of breast cancer in mother acute Routine gynecological examination noneactive [facility] Work Phone: Evaluation note* Diagnosis Onset Date Resolution Status Family history of breast cancer in mother acute Routine gynecological examination noneactive Left ear pain acute Anxiety and depression [facility] Work Phone: Evaluation note* Diagnosis Onset Date Resolution Status Admit Date Cough acute December 14, 2024 3:51pm Influenza vaccine administered acute December 14, 2024 3:51pm Overactive bladder chronic Octobe r 2024 3:51pm Type 2 diabetes mellitus chronic December 14, 2024 3:51pm [facility] Work Phone: Hospital course Narrative No data available for this section [facility] Hospital Discharge instructions No data available for this section [facility] Progress note No data available for this section [facility] Reason for referral (narrative)No reason for referral information availableSt. 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) MEDICATION DISCUSSION SCREENING Reason for Visit Family history of br east cancer in mother Routine gynecological examination Left ear pain Anxiety and depression Chief Complaint Admit Date MED FU December 14, 2024 3 :51pm cough December 15, 2024 2 :49pm Reason for Visit Admit Date Cough December 14, 2024 3 :51pm Influenza vaccine administered November 292024 3:51pm Overactive bladder December 14, 2024 3 :51pm Type 2 diabetes mellitus December 14, 025 3:51pm Family History Relationship Condition Age at Onset Recorded Date/T [...] disorder Unknown Psychiatric care Unknown Advance Directives Advance Directive Response Recorded Date/ Time Name of Medical Power of Director Of Pharmacy SPOUSE September 08, 2021 8:45am Living Will Yes September 08, 2021 8:45am Power of Director Of Pharmacy Yes September 08 8:45am Advance Directive Response Recorded Date/ Time Living Will Yes September 08, 2021 8:45am Power of Director Of Pharmacy Yes September 08 8:45am Advance Directive Response Recorded Date/ Time Living Will Yes August 18, 2022 1:09pm Power of Director Of Pharmacy Yes August 18 1:09pm Advance Directive Response Recorded Date/ Time Living Will Yes August 18, 2022 12:09pm Power of Director Of Pharmacy Yes August 18 12:09pm Summary Purpose Additional [...] section and content) DATE CREATED AUTHOR 12/31/2021 [facility] ([place]) DATE CREATED AUTHOR 'S ORGANIZ ATION 12/27/2024 [facility] Care Teams (unrecognized sec tion and content) [...] Care Provider, Refer ring Provider Active Luciano VASQUEZ PA Attending Provider Active Team Status: Inactive [...] Toth MD Referring Provider Active Kyra Romo RENOVATOR MACHINE OPERATOR, RENOVATOR MACHINE OPERATOR-C Attending Provider Active Team Status: Inactive Member Role Status Kyra Romo RENOVATOR MACHINE OPERATOR, RENOVATOR MACHINE OPERATOR-C Attending Provider, Referring Provider Active Team Status: Inactive Member Role Status Dates Dr. Primo Toth MD Attending Provider Active Team Status: Inactive Member Role Status Dates Kyra Romo RENOVATOR MACHINE OPERATOR, RENOVATOR MACHINE OPERATOR-C Attending Provider, Referring Provider Active Dr. Primo Toth MD Primary Care Provider Active Team Status: Active Member Role/Relationship Status Dates Dr. Primo Toth MD Primary care physician Activ e Team Status: Inactive Member Role/Relationship Status Dates Troy VASQUEZ PA Attending physician Active S tart: December 14, 2024 End: December 14, 2024 Dr. Primo Toth MD Primary care physician Activ e Start: December 14, 2024 End: December 14, 2024 Dr. Primo Toth MD Referring Provider Active Start: December 14, 2024 End: December 14, 2024 Team Status: Inactive Member Role/Relationship Status Dates Dr. Primo Toth MD Primary care physician Activ e Start: December 15, 2024 End: December 15, 2024 GARRETT Richardson Attending physician Active S tart: December 15, 2024 End: December 15, 2024 GARRETT Richardson Referring Provider Active St art: December 15, 2024 End: December 15, 2024 FOR RECORDS PERTAINING TO PATIENTS WHO ARE [...] BE BASED ON THE PRIMARY CLINICAL RECORDS. [facility]. provides no warranty or guarantee of the accuracy or completeness of information in this document.
== END 2025-01-10 19:45 | disposition left against medical advice (07) ==
LOC: ED 19:48
PROVIDERS: PCP Internal Medicine
DX: Z53.21 Procedure and treatment not carried out due to patient leaving prior to being seen by health care provider (principal)